=== PATIENT | female | born 1950 | race Caucasian/White ===

== ENCOUNTER 2021-09-26 01:34 | Day surgery (SDC) | payer MEDICARE, SELFPAY ==
[2021-09-06 15:59] VITALS: BMI 42.9
[2021-09-26 09:53] VITALS: BP 134/95; PULSE 97; RESP 20; TEMP 36.3; O2SAT 98; BMI 41.5
[2021-09-26] MEDS: LACTATED RINGERS 1,000 ML 150 ML IV CONT (10:02)
--- NOTE | 2021-09-26 10:50 | PM.HPGS ---
History of Present Illness History of Present Illness Consent: Risks, benefits, and alternatives have been discussed and questions answered. Patient agrees to proceed with procedure. Chief complaint: ulcerative colitis Narrative: Windy Kan is a 70 year old female who ?6 years ago was diagnosed with inflammatory bowel disease involving the rectum and sigmoid colon.? Biopsies were it suggestive of an indeterminate colitis.? Since that time she has been on oral mesalamine and also had been prescribed mesalamine enemas by Dr. Montalvo a few years ago.? she was 1st diagnosed with colitis in 2016 when she had presented with rectal bleeding. she never had diarrhea and has never had significant pain.? a few months ago, after a COVID vaccine, she had a flare up. At that point we increased her mesalamine to 4.8 g per day. Review of Systems Review of Systems: All systems reviewed & are unremarkable except as noted in HPI and below PMFSH Past Medical History Medical History Anxiety disorder, unspecified Arthritis Autoimmune disease, not elsewhere classified BMI greater than 40 Breast nodule Cataract GERD (gastroesophageal reflux disease) Heart palpitations History of encephalitis Irritable bowel syndrome Knee osteoarthritis Mixed hyperlipidemia Mixed hyperlipidemia Seronegative rheumatoid arthritis Tachycardia Thyroid disorder Tonsillectomy planned Ulcerative colitis Surgical History Surgical History History of cataract surgery History of tonsillectomy and adenoidectomy Family History Family History Father Hypertension Heart disease Mother Hypertension Heart disease Social History Social History Smoking status: Never smoker Second hand tobacco smoke exposure: No Alcohol intake: never Substance use: never Substance use type: does not use Living arrangements: alone Spiritual care concerns: No Meds Home Medications and Allergies Home Medications Medication Instructions Recorded Confirmed Type esomeprazole magnesium 40 mg 40 mg PO DAILY 05/08/21 09/25/21 History capsule,delayed release mesalamine 1.2 gram tablet,delayed 4.8 g PO DAILY #360 tabs 06/26/21 09/25/21 Rx release mdpzfitskg-plwwxvsqwuoqb-adjrskzu 1 cap PO Q6H PRN Headache 09/13/21 09/25/21 History 50 mg-325 mg-40 mg capsule cholecalciferol (vitamin D3) 1,250 50,000 unit PO WEEKLY #12 tabs 09/13/21 09/25/21 Rx mcg (50,000 unit) tablet fexofenadine 180 mg tablet 180 mg PO DAILY 09/13/21 09/25/21 History hydrocodone 10 mg-acetaminophen 1 tablet PO Q12H pain #60 tabs 09/13/21 09/25/21 Rx 325 mg tablet lorazepam 1 mg tablet 1 mg PO BID PRN Anxiety #40 tabs 09/13/21 09/25/21 Rx metoprolol tartrate 25 mg tablet See Rx Instructions PO .COMPLEX 09/13/21 09/25/21 Rx #90 tabs multivitamin with minerals-folic 1 tablet PO DAILY 09/13/21 09/25/21 History acid 120 mcg chewable tablet (Centrum Adult 50 Plus Fresh-Fruity) prednisone 10 mg tablet 10 mg PO .QOD #45 tabs 09/13/21 09/25/21 Rx rosuvastatin 5 mg tablet 5 mg PO DAILY #90 tabs 09/13/21 09/25/21 Rx triamterene 37.5 1 cap PO DAILY PRN swelling #30 09/13/21 09/25/21 Rx mg-hydrochlorothiazide 25 mg caps capsule levothyroxine 50 mcg tablet 50 mcg PO DAILY #90 tabs 09/20/21 09/25/21 Rx Allergies Allergy/AdvReac Type Severity Reaction Status Date / Time ciprofloxacin Allergy Intermediate REDNESS Verified 09/26/21 09:51 Contrast Media Allergy Severe HIVES, Uncoded 09/26/21 09:51 ITCHING Vital Signs Vital Signs - 24 hr 09/26/21 09:53 Temperature 36.3 C L Pulse Rate 97 Respiratory Rate 20 Blood Pressure 134/95 H Pulse Oximetry 98 Oxygen Delivery Room Air Exam Resp: Auscultation: clear to auscultation bilaterally
--- NOTE | 2021-09-26 11:37 | WPDANESEPPF ---
Anes - Initial Pre Proc Eval Procedure: Operation Date: 09/26/21 11:00 Proposed Procedures p Colonoscopy - Kelton Disla MD Date/Time: 09/26/21 11:37 Surgeon: Kelton Disla MD Pre Op Diagnosis: ulcerative colitis Patient Data Age: 70 Gender: F Height: 1.75 m Weight: 127.8 kg Last Vital Signs Temp 97.3 F L 09/26/21 09:53 Pulse 97 09/26/21 09:53 Resp 20 09/26/21 09:53 BP 134/95 H 09/26/21 09:53 Pulse Ox 98 09/26/21 09:53 O2 Del Method Room Air 09/26/21 09:53 Allergies Allergy/AdvReac Type Severity Reaction Status Date / Time ciprofloxacin Allergy Intermediate REDNESS Verified 09/26/21 09:51 Contrast Media Allergy Severe HIVES, Uncoded 09/26/21 09:51 ITCHING Home Medications Medication Instructions Recorded Confirmed Type esomeprazole magnesium 40 mg 40 mg PO DAILY 05/08/21 09/25/21 History capsule,delayed release mesalamine 1.2 gram tablet,delayed 4.8 g PO DAILY #360 tabs 06/26/21 09/25/21 Rx release puexhfpqun-zdqhxnfeisghq-yrmupcsi 1 cap PO Q6H PRN Headache 09/13/21 09/25/21 History 50 mg-325 mg-40 mg capsule cholecalciferol (vitamin D3) 1,250 50,000 unit PO WEEKLY #12 tabs 09/13/21 09/25/21 Rx mcg (50,000 unit) tablet fexofenadine 180 mg tablet 180 mg PO DAILY 09/13/21 09/25/21 History hydrocodone 10 mg-acetaminophen 1 tablet PO Q12H pain #60 tabs 09/13/21 09/25/21 Rx 325 mg tablet lorazepam 1 mg tablet 1 mg PO BID PRN Anxiety #40 tabs 09/13/21 09/25/21 Rx metoprolol tartrate 25 mg tablet See Rx Instructions PO .COMPLEX 09/13/21 09/25/21 Rx #90 tabs multivitamin with minerals-folic 1 tablet PO DAILY 09/13/21 09/25/21 History acid 120 mcg chewable tablet (Centrum Adult 50 Plus Fresh-Fruity) prednisone 10 mg tablet 10 mg PO .QOD #45 tabs 09/13/21 09/25/21 Rx rosuvastatin 5 mg tablet 5 mg PO DAILY #90 tabs 09/13/21 09/25/21 Rx triamterene 37.5 1 cap PO DAILY PRN swelling #30 09/13/21 09/25/21 Rx mg-hydrochlorothiazide 25 mg caps capsule levothyroxine 50 mcg tablet 50 mcg PO DAILY #90 tabs 09/20/21 09/25/21 Rx Patient hx anesthesia problems: none Family hx anesthesia problems: none Results Review: All pre-operative results and documents have been reviewed as part of the pre-operative evaluation. [facility] Past Medical History Medical History Anxiety disorder, unspecified Arthritis Autoimmune disease, not elsewhere classified BMI greater than 40 Breast nodule Cataract GERD (gastroesophageal reflux disease) Heart palpitations History of encephalitis Irritable bowel syndrome Knee osteoarthritis Mixed hyperlipidemia Mixed hyperlipidemia Seronegative rheumatoid arthritis Tachycardia Thyroid disorder Tonsillectomy planned Ulcerative colitis Surgical History Surgical History History of cataract surgery History of tonsillectomy and adenoidectomy Family History Family History Father Hypertension Heart disease Mother Hypertension Heart disease Social History Social History Smoking status: Never smoker Second hand tobacco smoke exposure: No Alcohol intake: never Substance use: never Substance use type: does not use Living arrangements: alone Spiritual care concerns: No Anes - Eval Final PreProcedure Day of Procedure 09/26/21 11:37 Patient weight: morbidly obese Heart: regular rate and rhythm Lungs: clear to auscultation Airway: Mallampati scale class II Neurological: alert and oriented Last oral intake: >/= 8 hours ASA classification: III Emergent: no Anesthetic plan: proceed Anesthesia type and monitoring: general GIVS and standard monitoring Results Review: All pre-operative results and documents have been reviewed as part of the pre-operative evaluation. Informed Consen
[2021-09-26 11:54] VITALS: BP 125/54; PULSE 71; RESP 20; O2SAT 97
[2021-09-26 12:04] VITALS: BP 125/66; PULSE 66; RESP 19; O2SAT 97
[2021-09-26 12:14] VITALS: BP 121/65; PULSE 69; RESP 17; O2SAT 100
== END 2021-09-26 12:18 | disposition home or self-care (01) ==
PROVIDERS: PCP Family Medicine; Visit Provider Internal Medicine Gastroenterology
PROC: 0DJD8ZZ Inspection of Lower Intestinal Tract, Via Natural or Artificial Opening Endoscopic (ICD-10-PCS; CPT 45378; principal; 2021-09-26 11:00)
DX: Z09 Encounter for follow-up examination after completed treatment for conditions other than malignant neoplasm (principal); K57.30 Diverticulosis of large intestine without perforation or abscess without bleeding; Z87.19 Personal history of other diseases of the digestive system; E78.2 Mixed hyperlipidemia; M35.9 Systemic involvement of connective tissue, unspecified; K21.9 Gastro-esophageal reflux disease without esophagitis; K58.9 Irritable bowel syndrome, unspecified; M06.00 Rheumatoid arthritis without rheumatoid factor, unspecified site; E07.9 Disorder of thyroid, unspecified; F41.9 Anxiety disorder, unspecified; E66.01 Morbid (severe) obesity due to excess calories; Z68.41 Body mass index [BMI] 40.0-44.9, adult; Z79.891 Long term (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 of opiate analgesic
CPT/HCPCS: 45380; 88305; J2704; J7120

== ENCOUNTER 2022-10-30 12:58 | Emergency (ER) | payer MEDICARE, SELFPAY ==
[2022-10-30] VITALS (11 sets, daily range): BP systolic 137–159; BP diastolic 74–94; PULSE 81–101; RESP 13–22; TEMP 36.2; O2SAT 95–100
--- NOTE | ~2022-10-30 | NM_ITS ---
NM lung vent and perfusion INDICATION: Chest pain and shortness of breath TECHNIQUE: The patient inhaled aerosolized 9.8 mCi xenon-133. Following ventilation scan, 5.5 mCi Tc 99m MAA was injected intravenously for perfusion images. Multiple images were then acquired. COMPARISON: Chest x-ray dated 10/30/2022 FINDINGS: The comparison chest radiograph demonstrates left basilar atelectasis. No focal pneumonia o r pleural effusion. The perfusion scan is normal. The aerosol in images show uniform deposition thro ughout the lungs. IMPRESSION: 1: Normal ventilation and perfusion images. Reviewed, dictated and finalized at location B.
--- NOTE | ~2022-10-30 | XR_ITS ---
XR chest 2V 10/30/2022 13:30 Indication: Chest pain and shortness of breath Procedure: 2 view chest Comparison: 06/10/2009 Findings: Heart size normal. Left basilar atelectasis. No focal pneumonia, edema, pleural effusion or pneumothorax. No acute osseous abnormality. Impression: 1: Left basilar atelectasis. Reviewed, dictated and finalized at location B. Impression: 1: Left basilar atelectasis.
--- NOTE | 2022-10-30 12:59 | ECG_ITS ---
Measurements Intervals [place] Rate: 92 P: 67 FL: 166 QRS: -1 QRSD: 83 T: 33 QT: 328 QTc: 408 Interpretive Statements SINUS RHYTHM DELAYED PRECORDIAL R/S TRANSITION BASELINE ARTIFACT- I, III, AVR, AVL, V1 BORDERLINE ECG NO PREVIOUS ECG AVAILABLE FOR COMPARISON Electronically Signed On 10-30-2022 13:14:55 CDT by Steven Caro D.O.
[2022-10-30 13:31] LABS: Basophils Absolute Auto 0.1 K/mm3 (0.0-0.1); Basophils Percent Auto 0.7 % (0.2-1.2); Eosinophils Absolute Auto 0.3 K/mm3 (0-0.3); Eosinophils Percent Auto 2.4 % (0-4.4); Hematocrit 43.9 % (37.0-47.0); Immature Granulocyte Absolute 0.03 K/mm3 (0.00-0.031); Immature Granulocyte Percent A 0.3 % (0-0.5); Lymphocytes Absolute Auto 2.49 K/mm3 (0.9-3.2); Mean Corpuscular HGB Conc 31.9 g/dl (32-36); Mean Corpuscular Hemoglobin 28.6 pg (26-34); Mean Corpuscular Volume 89.6 fl (80-100); Mean Platelet Volume 9.4 fl (7.4-10.4); Monocytes Absolute Auto 1.4 K/mm3 (0.1-0.6); Monocytes Percent Auto 12.7 % (2.6-8.5); Neutrophils Absolute Auto 6.6 K/mm3 (1.3-6.7); Neutrophils Percent Auto 60.9 % (45.5-73.1); Platelet Count Result 460 k/mm3 (150-375); White Blood Count 10.8 K/mm3 (4.5-10.0)
[2022-10-30 13:43] LABS: Prothrombin Time 13.5 Seconds (11.1-14.7)
[2022-10-30 13:44] LABS: Alanine Aminotransferase 22 U/L (6-35); Albumin Level 4.4 g/dL (3.5-5.1); Alkaline Phosphatase 71 U/L (38-126); Anion Gap 6 mmol/L (8-16); Aspartate Amino Transferase 30 U/L (14-36); Bilirubin,Total 0.6 mg/dL (0.2-1.3); Blood Urea Nitrogen 15 mg/dL (7-17); Carbon Dioxide 31 mmol/L (22-30); Chloride 102 mmol/L (98-107); Estimated CRCL calculation 88 ml/min; Estimated Glomerular Filt Rate > 60; Glucose 112 mg/dL (65-110); Lipase 391 U/L (23-300); Partial Thromboplastin Time 29.9 SECONDS (22.3-36.8); Potassium 5.2 mmol/L (3.4-5.0); Sodium 139 mmol/L (137-145)
[2022-10-30 13:56] LABS: Troponin I < 0.012 ng/mL (0.000-0.034)
--- NOTE | 2022-10-30 15:28 | ED.CHESTPAIN ---
HPI - Chest Pain General Chief Complaint: Chest Pain Stated Complaint: Chest Pain Time Seen by Provider: 10/30/22 14:47 History of Present Illness HPI narrative: 71-year-old female history of hypertension, atrial tachycardia, and hypothyroidism presents to the emergency room for evaluation of chest pain. States pain began yesterday and is worse with respirations. Patient describes the pain as a tearing sensation that radiates up into her neck and through to her back. Denies any shortness of breath. Denies dizziness or lightheadedness. No nausea or vomiting. No syncopal or presyncopal episodes. Patient does report palpitations, which are more prevalent at night and resolved when she wakes up in the morning. Related Data Home Medications Medication Instructions Recorded Confirmed esomeprazole magnesium 40 mg 40 mg PO DAILY 05/08/21 10/22/22 capsule,delayed release ctvafaaiyt-jlybuoduhfwab-caunbqzh 1 cap PO Q6H PRN Headache 09/13/21 10/22/22 50 mg-325 mg-40 mg capsule multivitamin (One Daily 1 tablet PO DAILY 10/22/22 10/22/22 Multivitamin tablet) Allergies Allergy/AdvReac Type Severity Reaction Status Date / Time ciprofloxacin Allergy Intermediate REDNESS Verified 10/22/22 14:23 Iodinated Contrast Media AdvReac Intermediate Shakiness Verified 10/22/22 14:23 Review of Systems Review of Systems: CONSTITUTIONAL: Denies fever, chills, or sweats. EYES: Denies visual changes, redness, or discharge. ENT: Denies rhinorrhea, congestion, sore throat, or otalgia. CARDIOVASCULAR: Denies chest pain, palpitations, or edema. RESPIRATORY: Denies cough or dyspnea. GASTROINTESTINAL: Denies abdominal pain, nausea, vomiting, or diarrhea. GENITOURINARY: Denies dysuria or hematuria. SKIN: Denies rash or itching. MUSCULOSKELETAL: Denies back pain, joint pain, or myalgia. NEUROLOGIC: Denies headache, numbness, dizziness, or weakness. PSYCHIATRIC: Denies anxiety or depression. [facility] Past Medical History Medical History Anxiety disorder, unspecified Arthritis Autoimmune disease, not elsewhere classified BMI greater than 40 Breast nodule Cardiac arrhythmia Cataract Chronic headache Chronic pain Coccyx pain Dyspepsia GERD (gastroesophageal reflux disease) Heart palpitations History of encephalitis Hypothyroidism (acquired) Irritable bowel syndrome Knee osteoarthritis Mixed hyperlipidemia Mixed hyperlipidemia Rhinorrhea Seronegative rheumatoid arthritis Tachycardia Thyroid disorder Tonsillectomy planned Ulcerative colitis Surgical History Surgical History History of cataract surgery History of tonsillectomy and adenoidectomy Family History Family History Father Hypertension Heart disease Acute myocardial infarction Mother Hypertension Heart disease Sibling Heart disease Social History Social History Smoking status: Never smoker Second hand tobacco smoke exposure: No Alcohol intake: never Substance use: never Substance use type: does not use Lack of Transportation: No Lack of Food: Never True Current Housing: I Have Housing Concerned About Future Housing: No Difficulty Paying Gas/Electric Bills: No Difficulty Paying for Meds: No Currently Unemployed: No Education: Master's Degree or Higher Difficulty w/ Childcare or Family Care: No Living arrangements: alone 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 HEAD: Normocephalic, atraumatic. EYES: Conjunctivae normal, PERRLA and EOMI. NECK: S
--- NOTE | 2022-10-30 15:36 | PC.NURSE ---
pt taken for NM scan at this time
--- NOTE | 2022-10-30 15:58 | PC.NURSE ---
pt returned to room 5 at this time
[2022-10-30 16:50] LABS: Troponin I < 0.012 ng/mL (0.000-0.034)
== END 2022-10-30 17:28 | disposition home or self-care (01) ==
PROVIDERS: Emergency Medicine; Emergency Provider Nurse Practitioner Family; PCP Family Medicine
DX: R07.89 Other chest pain (principal); R00.2 Palpitations; I10 Essential (primary) hypertension; E03.9 Hypothyroidism, unspecified; E78.2 Mixed hyperlipidemia; K51.90 Ulcerative colitis, unspecified, without complications; K21.9 Gastro-esophageal reflux disease without esophagitis; M35.9 Systemic involvement of connective tissue, unspecified; M17.9 Osteoarthritis of knee, unspecified; M06.0A Rheumatoid arthritis without rheumatoid factor, other specified site; F41.9 Anxiety disorder, unspecified; Z98.49 Cataract extraction status, unspecified eye
CPT/HCPCS: 36415; 71046; 78582; 80053; 83690; 84484; 85025; 85610; 85730; 93005; 99284; A9540; A9558

== ENCOUNTER 2022-11-07 06:57 | Inpatient (IN) | payer MEDICARE, SELFPAY ==
[2022-11-07] VITALS (27 sets, daily range): BP systolic 110–163; BP diastolic 79–126; PULSE 115–134; RESP 16–39; TEMP 36.5–38.2; O2SAT 90–99; BMI 43.2
--- NOTE | ~2022-11-07 | US_ITS ---
EXAMINATION: US abdomen limited DATE: 11/08/2022 14:53 INDICATION: Right upper quadrant pain TECHNIQUE: Multiple grayscale and Doppler ultrasound images of the abdomen were obtained. COMPARISON: None available FINDINGS: The head and body of the pancreas are normal. The pancreatic tail is obscured by bowel gas. The liver is normal with normal echogenicity and echotexture. No surface nodularity. Normal hepatope chacorta flow in the main portal vein. The gallbladder is normal with no abnormal wall thickening, pericho lecystic fluid or stones. The normal common bile duct measures 4 mm. There was no sonographic Lozano sign. Right pleural fluid is noted. IMPRESSION: 1. Normal sonographic study of the gallbladder. Reviewed, dictated and finalized at location B.
--- NOTE | ~2022-11-07 | XR_ITS ---
EXAMINATION: XR chest 1V portable DATE: 11/12/2022 13:09 INDICATION: Central line placement. TECHNIQUE: A single frontal view of the chest was obtained. COMPARISON: Chest single view 11/10/2022, CT abdomen and pelvis 11/07/2022 FINDINGS: There are small right and moderate-sized left pleural effusions. There are airspace opaciti es at left lung base. No pneumothorax. There is enlargement of the cardiac silhouette. A right upper extremity peripherally inserted central venous catheter (PICC) is seen with tip in the superior vena cava. IMPRESSION: 1. PICC tip in the superior vena cava. 2. Stable small right and moderate-sized left pleural effusions. 3. Stable airspace opacities at left lung base, consistent with atelectasis versus pneumonia. 4. Enlargement of the cardiac silhouette, which may be secondary to pericardial effusion as seen on t he prior CT. Reviewed, dictated and finalized at location A. IMPRESSION: 1. PICC tip in the superior vena cava. 2. Stable small right and moderate-sized left pleural effusions. 3. Stable airspace opacities at left lung base, consistent with atelectasis maura maira pneumonia. 4. Enlargement of the cardiac silhouette, which may be secondary to pericardial effusion as seen on the prior CT.
--- NOTE | ~2022-11-07 | CT_ITS ---
Non-contrast CT scan of the Abdomen and Pelvis Clinical indication: Abdominal pain, hematuria Technique: 2.5 mm axial scans were obtained through the abdomen and pelvis without intravenous or or al contrast. Dose reduction technique was used on this scan by utilizing automated exposure control a nd iterative reconstruction technique. The dose-length product (DLP) was 1420.52 mGy-cm. Findings: Images through the lung bases reveal moderate pericardial effusion, and small bilateral pl eural effusions. There is bibasilar atelectatic change or scarring. There is no evidence of renal or ureteral calculi. The kidneys and the ureters are nondilated. The liver, spleen, pancreas, and adrenals appear normal. There is probable gallbladder wall thickenin g, with gallbladder sludge present. There are atherosclerotic calcifications of the aorta. There is no evidence of bowel obstruction. Sigmoid diverticulosis is present. Images through the pelvis were performed. Small amount of pelvic ascites present. Urinary bladder col lapsed. No adnexal mass evident. Impression: Mild gallbladder wall thickening and suspected gallbladder sludge. Correlate for acute cholecystitis. Consider HIDA scan as indicated. Moderate pericardial effusion. Small bilateral pleural effusions with bibasilar scarring or atelectasis. Small amount of pelvic ascites, nonspecific. Reviewed, dictated and finalized at location . Impression: Mild gallbladder wall thickening and suspected gallbladder sludge. Correlate fo r acute cholecystitis. Consider HIDA scan as indicated. Moderate pericardial effusion. Small bilateral pleural effusions with bibasilar scarring or atelectasis. Small amount of pelvic ascites, nonspecific.
--- NOTE | ~2022-11-07 | XR_ITS ---
Clinical Indication: Chest pain AP and lateral views of the chest: Comparison: 10/30/2022 Findings: Small left pleural effusion and probable minimal right pleural effusion are present. Probab le minimal bibasilar atelectatic change.. Cardiomediastinal silhouette is stable. Bones and soft tis sues are unremarkable. Impression: Small left pleural effusion and minimal right pleural effusion, probable minimal bibasilar atelectasi s. Reviewed, dictated and finalized at location M. Impression: Small left pleural effusion and minimal right pleural effusion, probable minima l bibasilar atelectasis.
--- NOTE | ~2022-11-07 | XR_ITS ---
XR chest 1V portable 11/09/2022 09:28 Indication: Shortness of breath Procedure: AP portable chest Comparison: 11/07/2022 Findings: Cardiomegaly. Mild interstitial edema. Small pleural effusions. No pneumothorax. No acute o sseous abnormality. Mild dextrocurvature of the thoracic spine. Impression: 1: Cardiomegaly with mild interstitial edema. 2: Small pleural effusions. Reviewed, dictated and finalized at location A. Impression: 1: Cardiomegaly with mild interstitial edema. 2: Small pleural effusions.
--- NOTE | ~2022-11-07 | XR_ITS ---
XR chest 1V portable 11/10/2022 10:58 Indication: Shortness of breath. Cough. Weakness. Procedure: AP portable chest Comparison: Comparison to multiple prior studies sequentially, with oldest reviewed study dated 06/10. Findings: Cardiomegaly. Mild interstitial edema. Small left pleural effusion. No pneumothorax. Impression: 1: Cardiomegaly with mild interstitial edema. 2: Small left pleural effusion. Reviewed, dictated and finalized at location A. Impression: 1: Cardiomegaly with mild interstitial edema. 2: Small left pleural effusion.
--- NOTE | ~2022-11-07 | NM_ITS ---
EXAMINATION: NM hepatobiliary wo pharm DATE: 11/08/2022 11:44 CDT INDICATION: Right upper quadrant pain COMPARISON: None. TECHNIQUE: 5.4 mCi Tc-99m mebrofenin (Choletec) was administered intravenously. Scintigraphic images of the abdomen were obtained for one hour. At the 1 hour time point, the patient drank 8 oz Ensure, and imaging was continued for 60 minutes. Gallbladder ejection fraction was calculated by the technol ogist. FINDINGS: There is normal clearance of radiotracer from the blood pool. There is homogeneous tracer u ptake by the liver. Activity progresses to the bowel and gallbladder. The gallbladder ejection fract ion is 34%. Note that with this technique, normal GBEF >= 33%. IMPRESSION: 1. Normal hepatobiliary scan. Reviewed, dictated and finalized at location A.
--- NOTE | ~2022-11-07 | XR_ITS ---
EXAMINATION: XR chest PICC line Exam Date/Time: 11/10/2022 19:30 CDT HISTORY: picc insertion Comparison: Same date at 10:24 AM. RESULT: Lines, tubes, and devices: New right upper extremity PICC terminating in the SVC. Lungs and pleura: Unchanged interstitial edema, left basilar airspace disease, and small left pleura l effusion. Cardiomediastinal silhouette: Stable. Other: No acute osseous or upper abdominal finding. IMPRESSION: New right upper extremity PICC, in good position. Reviewed, dictated and finalized at location K.
--- NOTE | 2022-11-07 07:14 | ECG_ITS ---
Measurements Intervals [place] Rate: 124 P: 57 NC: 147 QRS: 13 QRSD: 75 T: 78 QT: 314 QTc: 451 Interpretive Statements SINUS TACHYCARDIA ST ELEVATION IN DIFFUSE LEADS- CONSIDER PERICARDITIS, EARLY REPOLARIZATION ABNORMALITY OR ACUTE INFARCT ABNORMAL ECG COMPARED TO ECG 10/30/2022 13:11:27 SINUS TACHYCARDIA NOW PRESENT Electronically Signed On 11-07-2022 8:24:12 CDT by Steven Caro D.O.
[2022-11-07 07:39] LABS: Basophils Absolute Auto 0.1 K/mm3 (0.0-0.1); Basophils Percent Auto 0.5 % (0.2-1.2); Hematocrit 38.7 % (37.0-47.0); Hemoglobin 12.7 g/dL (12.0-15.0); Immature Granulocyte Absolute 0.06 K/mm3 (0.00-0.031); Immature Granulocyte Percent A 0.4 % (0-0.5); Lymphocytes Absolute Auto 1.59 K/mm3 (0.9-3.2); Lymphocytes Percent Auto 9.6 % (18.3-44.2); Mean Corpuscular HGB Conc 32.8 g/dl (32-36); Mean Corpuscular Hemoglobin 28.6 pg (26-34); Mean Corpuscular Volume 87.2 fl (80-100); Monocytes Absolute Auto 2.2 K/mm3 (0.1-0.6); Monocytes Percent Auto 13.2 % (2.6-8.5); Neutrophils Absolute Auto 12.7 K/mm3 (1.3-6.7); Neutrophils Percent Auto 76.3 % (45.5-73.1); Platelet Count Result 611 k/mm3 (150-375); Red Blood Count 4.44 M/mm3 (4.2-5.4); White Blood Count 16.6 K/mm3 (4.5-10.0)
[2022-11-07 07:51] LABS: Alanine Aminotransferase 44 U/L (6-35); Alkaline Phosphatase 76 U/L (38-126); Anion Gap 10 mmol/L (8-16); Aspartate Amino Transferase 43 U/L (14-36); Bilirubin,Total 1.4 mg/dL (0.2-1.3); Blood Urea Nitrogen 23 mg/dL (7-17); Carbon Dioxide 24 mmol/L (22-30); Chloride 101 mmol/L (98-107); Estimated CRCL calculation 70 ml/min; Estimated Glomerular Filt Rate > 60; Glucose 177 mg/dL (65-110); Potassium 4.7 mmol/L (3.4-5.0); Sodium 135 mmol/L (137-145)
[2022-11-07 10:47] LABS: Bacteria Urine None Seen /hpf; Hyaline Casts Urine Present /lpf; Mucus Urine Present /lpf; Non Pathogenic Casts >20; RBC Urine 21-50 /hpf (0-2); Squamous Epithelial Cell Urine Few /hpf (Few); WBC Urine 0-5 /hpf
[2022-11-07 10:49] LABS: Appearance Urine Cloudy (Clear); Bilirubin Urine 2+ (Negative); Blood Urine Negative (Negative); Color Urine Orange (Yellow); Glucose Urine UA Negative (Negative); Ketones Urine Negative (Negative); Leukocyte Esterase Ur 1+ LEU/UL (Negative); Protein Urine 1+ mg/dL (Negative)
[2022-11-07 10:54] LABS: Specific Grav Ur 1.046 (1.001-1.035)
[2022-11-07 10:59] LABS: Add Urine Microscopic? YES
[2022-11-07] MEDS: SODIUM CHLORIDE 0.9% IV 1,000 ML 999 ML IV CONT (12:52)
[2022-11-07] MEDS: ONDANSETRON INJ 4 MG/2 ML VIAL IV PUSH (13:03)
--- NOTE | 2022-11-07 13:25 | ED.GENADULT ---
HPI - General Adult General Chief complaint: Unspecified Stated complaint: Weak, dizzy, burn when urinates, N/V Time Seen by Provider: 11/07/22 10:07 History of Present Illness HPI narrative: Patient is a 71-year-old female who presents ER with multiple complaints. She was seen here last week for concerns of chest discomfort. She had a pulmonary embolism ruled out as well as cardiac issues. Since being home she has had persistent nausea and has been unable to eat and drink. She is continue to have daily fevers. Patient does have right upper quadrant abdominal tenderness. This will occasionally go into her back. No diarrhea. Patient also has concerns for UTI as she has been having some dysuria and what she thinks is blood in her urine because her urine has been discolored Related Data Home Medications Medication Instructions Recorded Confirmed multivitamin (One Daily 1 tablet PO DAILY 10/22/22 11/07/22 Multivitamin tablet) metoprolol tartrate 25 mg tablet 12.5 mg PO DAILY 11/07/22 11/07/22 metoprolol tartrate 25 mg tablet 25 mg PO HS 11/07/22 11/07/22 Allergies Allergy/AdvReac Type Severity Reaction Status Date / Time ciprofloxacin Allergy Intermediate REDNESS Verified 11/07/22 14:53 Iodinated Contrast Media AdvReac Intermediate Shakiness Verified 11/07/22 14:53 Review of Systems Review of Systems: All systems reviewed & are unremarkable except as noted in HPI and below Constitutional: Constitutional: Reports chills, Reports fatigue and Reports fever(s) ENT: Reports system reviewed and no additional complaints, except as documented Cardiovascular: Cardiovascular: Reports no additional cardiovascular complaints Respiratory: Respiratory: Reports no additional respiratory complaints Gastrointestinal: Gastrointestinal: Reports abdominal pain, Reports nausea and Reports vomiting Genitourinary: Genitourinary: Reports hematuria, Reports nocturia and Reports dysuria [facility] Past Medical History Medical History Anxiety disorder, unspecified Arthritis Autoimmune disease, not elsewhere classified BMI greater than 40 Breast nodule Cardiac arrhythmia Cataract Chronic headache Chronic pain Coccyx pain Dyspepsia Elevated lipase Elevated white blood cell count GERD (gastroesophageal reflux disease) Heart palpitations History of encephalitis Hypothyroidism (acquired) Irritable bowel syndrome Knee osteoarthritis Mixed hyperlipidemia Mixed hyperlipidemia Rhinorrhea Seronegative rheumatoid arthritis Tachycardia Thyroid disorder Tonsillectomy planned Ulcerative colitis Surgical History Surgical History History of cataract surgery History of tonsillectomy and adenoidectomy Family History Family History Father Hypertension Heart disease Acute myocardial infarction Mother Hypertension Heart disease Sibling Heart disease Acute myocardial infarction Social History Social History Smoking status: Never smoker Second hand tobacco smoke exposure: No Alcohol intake: never Substance use: never Substance use type: does not use Lack of Transportation: No Lack of Food: Never True Current Housing: I Have Housing Concerned About Future Housing: No Difficulty Paying Gas/Electric Bills: No Difficulty Paying for Meds: No Currently Unemployed: No Education: Master's Degree or Higher Difficulty w/ Childcare or Family Care: No Living arrangements: alone Occupation/Education: retired 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 HEAD: Normocephalic, atrauma
[2022-11-07] MEDS: PIPERACILLN/TAZ 3.375GM/NS50ML 3.375 GM/50 ML BAG IVPB ×2 (13:52→17:41)
[2022-11-07 14:27] LABS: Lactic Acid Reflex 2.9 mmol/L (0.7-2.0)
--- NOTE | 2022-11-07 14:52 | ADMGEN ---
This patient, Windy Kan, was admitted to [facility] Surg Room 313-01. Patient/family oriented to hospital policies and general routines including ID bracelet, bed and alarms, visiting hours, pain management, procedures, bathroom and other care routines, personal items, smoking policy, room service/diet, and visiting hours. Information on how to activate the Rapid Response Team has been discussed. Patient/Family are encouraged to report perceived risks to care and to ask questions if they do not understand what they are told or what they should do.
--- NOTE | 2022-11-07 15:27 | PM.CNGS ---
Assessment and Plan Assessment and plan (1) Cholecystitis: Code(s): K81.9 - Cholecystitis, unspecified Status: Acute Assessment and Plan: CT abdomen and pelvis suggests mild gallbladder wall thickening and gallbladder sludge, which could be related to cholecystitis. She does have some tenderness in the RUQ on exam, although her presentation and symptoms are atypical for what you would expect with acute cholecystitis. We would recommend to continue IV antibiotics and we will proceed with a HIDA scan to further evaluate the gallbladder for acute cholecystitis. Plan depending on HIDA results. (2) Sepsis: Code(s): A41.9 - Sepsis, unspecified organism Status: Acute Assessment and Plan: Criteria met on admission with tachycardia, leukocytosis, tachypnea, and fever. Continue broad-spectrum IV antibiotics and IV fluids. Monitor labs. (3) Tachycardia: Code(s): R00.0 - Tachycardia, unspecified Status: Acute Assessment and Plan: Patient reports a lifelong history of intermittent tachycardia since childhood. In review of her records, she has not been tachycardic in any of our charting up until arriving to the ER today. Continue to monitor, see plan above. (4) Autoimmune disease, not elsewhere classified: Code(s): M35.9 - Systemic involvement of connective tissue, unspecified Status: Acute Assessment and Plan: Takes prednisone at times through her PCP. Reports having autoimmune disease after having meningitis in 2015. (5) Ulcerative colitis: Qualifiers: Ulcerative colitis location: unspecified ulcerative colitis location Digestive disease complication type: without complication Qualified Code(s): K51.90 - Ulcerative colitis, unspecified, without complications Code(s): K51.90 - Ulcerative colitis, unspecified, without complications Status: Acute Assessment and Plan: History of inflammatory bowel disease treated previously with mesalamine. Patient denies being on any current medications. She had a colonoscopy in September of 2021 that only had findings of diverticulosis. After her colonoscopy, she was instructed to stop taking the mesalamine. (6) Elevated LFTs: Code(s): R79.89 - Other specified abnormal findings of blood chemistry Status: Acute Assessment and Plan: Mildly elevated AST, ALT, and alk phos. Lipase was 391 last week in the ER, but is normal on this admission. Repeat labs again tomorrow, see plan above. Plan I have discussed the patient's case and plan of care with Dr. Gómez. Thank you for allowing us to see the patient in consultation and we will continue to follow along with you. History of Present Illness Consult details Consult date: 11/07/22 Reason for consult: other (Possible acute cholecystitis) Requesting physician: Lawson Arriaga MD Narrative: This is a 71-year-old woman who we have been asked to see in consultation for possible acute cholecystitis. She presented to the ER 8 days ago for evaluation a cough and chest pain. At that time, the patient reports her main complaint was having a cough. She kept having the sensation of an irregular, rapid heartbeat, which would subsequently make her cough. She also developed some midsternal chest pain. She then came into the ER for evaluation. At that time [place] [address]. She had a negative troponin x2. LFTs were normal, and she had a lipase of 391. She had a chest x-ray that showed left basilar atelectasis. She also had a nuclear medicine V/Q pulmonary perfusion scan to evaluate for a PE since she has a contrast allergy, which was negative. It was recommended that she wear a Holter monitor and she was referred to Cardiology, which she has not seen yet. She was also started on Nexium. The patient reports that after having the V/Q scan, she has since felt generalized malaise and started having a fever and chills. She reports leylai
[2022-11-07] MEDS: SODIUM CHLORIDE 0.9% IV 1,000 ML 125 ML IV CONT (15:50)
[2022-11-07 17:14] LABS: Reflex Lactic Acid Yes or No Add Lactic
[2022-11-07 18:35] LABS: Lactic Acid 2.6 mmol/L (0.7-2.0)
--- NOTE | 2022-11-07 19:52 | PM.IMHP ---
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 Patient reports persistent nausea without vomiting, poor p.o. intake, weakness, urinary symptoms, dizziness, and fever. she was recently seen in the emergency department on 10/30. Per patient she was seen then for a cough that was precipitated by palpitations. per chart review, patient was complaining of chest pain with radiation into her back. V/Q scan was negative for a PE, trops x2 was negative, and she was discharged home with recommendation to wear a Holter monitor and see Cardiology for further workup. however, patient reports since she had received the V/Q scan she began feeling poorly. Now endorsing intermittent fevers (101F), dysuria, frequency, and hematuria. Urinary symptoms are accompanied by epigastric pain that is non-radiating. She took TYL at home for pain/fever. She denies diarrhea or bowel changes. Review of Systems Review of Systems: All systems reviewed & are unremarkable except as noted in HPI and below PMFSH Past Medical History Medical History (Updated 11/07/22 @ 20:13 by Diamond Bourne APRN) Anxiety disorder, unspecified Arthritis Autoimmune disease, not elsewhere classified BMI greater than 40 Breast nodule Cardiac arrhythmia Cataract Chronic headache Chronic pain Coccyx pain Dyspepsia Elevated lipase Elevated white blood cell count GERD (gastroesophageal reflux disease) Heart palpitations History of encephalitis Hypothyroidism (acquired) Irritable bowel syndrome Knee osteoarthritis Mixed hyperlipidemia Rhinorrhea Seronegative rheumatoid arthritis Tachycardia Ulcerative colitis Surgical History Surgical History History of cataract surgery History of tonsillectomy and adenoidectomy Family History Family History Father Hypertension Heart disease Acute myocardial infarction Mother Hypertension Heart disease Sibling Heart disease Acute myocardial infarction Social History Social History (Updated 11/07/22 @ 20:14 by Diamond Bourne APRN) Social History: Patient currently lives at home with her significant other, David Roy. Full Code. Surrogate decision maker: Portia Engle (niece). 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 Gender identity (if verbalized by the patient): Female Spiritual care concerns: No Meds Home Medications and Allergies Home Medications Medication Instructions Recorded Confirmed Type levothyroxine 50 mcg tablet 50 mcg PO DAILY #90 tabs 05/16/22 11/07/22 Rx cholecalciferol (vitamin D3) 1,250 50,000 unit PO WEEKLY #12 tabs 09/12/22 11/07/22 Rx mcg (50,000 unit) tablet hydrocodone 7.5 mg-acetaminophen 1 tablet PO Q8H PRN pain #90 tabs 10/09/22 11/07/22 Rx 325 mg tablet lorazepam 1 mg tablet 1 mg PO BID PRN Anxiety #40 tabs 10/22/22 11/07/22 Rx multivitamin (One Daily 1 tablet PO DAILY 10/22/22 11/07/22 History Multivitamin tablet) esomeprazole magnesium 40 mg 40 mg PO DAILY #30 caps 10/30/22 0
[2022-11-07] MEDS: MORPHINE SULFATE (*CRX) 4 MG/ML INJ IV PUSH (20:15)
[2022-11-07] MEDS: METOPROLOL TARTRATE 25 MG TABLET PO (22:14)
--- NOTE | 2022-11-08 | ECHO_ITS ---
Patient Info Name: Windy Kan Age: 71 years : 1950 Gender: Female Ht: 68 in Wt: 284 lbs BSA: 2.55 m2 HR: 110 bpm BP: 137 / 84 mmHg Heart Rhythm: Sinus Rhythm Technical Quality: Fair Exam Date: 11/08/2022 3:33 PM Exam Location: [facility] Patient Status: Inpatient Admit Date: 11/08/2022 Staff Ordering Physician: Bimal Keita Granite Installer: Katia Ferrell RDCS Attending Provider: Dora Floyd DO Referring Physician: Bossman BANKS; Exam Type: CA echo doppler color flow Study Info Indications - pericardial effusion Complete two-dimensional, color flow and Doppler transthoracic echocardiogram is performed. Summary 1. Complete two-dimensional, color flow and Doppler transthoracic echocardiogram is performed. 2. Left ventricular chamber dimension is normal. 3. Left ventricular systolic function is normal, estimated at 60-65%. 4. The left ventricular diastolic function is grade I diastolic dysfunction. 5. E/e' 11 is mildly elevated. 6. There is trace tricuspid valve regurgitation. 7. No pulmonary hypertension, estimated pulmonary arterial systolic pressure is 39 mmHg. 8. Dilated inferior vena cava with <50% collapse upon inspiration consistent with significantly elevated right atrial pressure, 15 mmHg. 9. Pleural effusion noted. 10. There is moderate to large circumferential pericardial effusion with average measurements about 1.8 cm. Left Ventricle E/e' 11 is mildly elevated. Left ventricular chamber dimension is normal. Left ventricular systolic function is normal, estimated at 60-65%. The left ventricular diastolic function is grade I diastolic dysfunction. Right Ventricle Right ventricular chamber dimension is normal. Right ventricular systolic function is normal. Left Atria Left atrial chamber dimension is normal. Right Atria Right atrial chamber dimension is normal. Aortic Valve The aortic valve is trileaflet. There is no aortic valve stenosis. There is no aortic valve regurgitation. Pulmonic Valve There is no pulmonic regurgitation. Mitral Valve There is no mitral valve stenosis. There is no mitral valve regurgitation. Tricuspid Valve There is trace tricuspid valve regurgitation. No pulmonary hypertension, estimated pulmonary arterial systolic pressure is 39 mmHg. Pericardium/Pleural There is moderate to large circumferential pericardial effusion with average measurements about 1.8 cm. Pleural effusion noted. No cardiac tamponade. Inferior Vena Cava Dilated inferior vena cava with <50% collapse upon inspiration consistent with significantly elevated right atrial pressure, 15 mmHg. Aorta The aortic root size at the sinus of Valsalva is normal. Left Ventricular Outflow Tract Name Value Normal LVOT 2D LVOT Diameter 2.0 cm LVOT Doppler LVOT Peak Gradient 4 mmHg LVOT Mean Gradient 2 mmHg LVOT VTI 15 cm LVOT VTI/AV VTI Ratio 0.8 LVOT Stroke Volume 46 ml LVOT CO 4.7 l/min LVOT CI 1.8 l/min/m2 Pulmonic Valve -------
[2022-11-08] MEDS: PIPERACILLN/TAZ 3.375GM/NS50ML 3.375 GM/50 ML BAG IVPB ×5 (00:25→23:23)
[2022-11-08] MEDS: SODIUM CHLORIDE 0.9% IV 1,000 ML 125 ML IV CONT ×2 (00:35→11:44)
[2022-11-08] MEDS: MORPHINE SULFATE (*CRX) 4 MG/ML INJ IV PUSH ×2 (00:40→11:25)
[2022-11-08 06:00] VITALS: BP 137/84; PULSE 108; RESP 18; TEMP 36.9; O2SAT 86
[2022-11-08 07:18] LABS: Basophils Absolute Auto 0.1 K/mm3 (0.0-0.1); Basophils Percent Auto 0.6 % (0.2-1.2); Eosinophils Percent Auto 0.1 % (0-4.4); Hematocrit 39.4 % (37.0-47.0); Hemoglobin 12.1 g/dL (12.0-15.0); Immature Granulocyte Absolute 0.09 K/mm3 (0.00-0.031); Immature Granulocyte Percent A 0.5 % (0-0.5); Lymphocytes Percent Auto 15.2 % (18.3-44.2); Mean Corpuscular HGB Conc 30.7 g/dl (32-36); Mean Corpuscular Hemoglobin 28.9 pg (26-34); Mean Platelet Volume 9.1 fl (7.4-10.4); Monocytes Absolute Auto 3.1 K/mm3 (0.1-0.6); Monocytes Percent Auto 16.2 % (2.6-8.5); Neutrophils Absolute Auto 12.9 K/mm3 (1.3-6.7); Neutrophils Percent Auto 67.4 % (45.5-73.1); Platelet Count Result 525 k/mm3 (150-375); Red Blood Count 4.19 M/mm3 (4.2-5.4); Red Cell Distribution Width 14.4 % (11.5-14.5); White Blood Count 19.1 K/mm3 (4.5-10.0)
[2022-11-08 07:28] LABS: Alanine Aminotransferase 90 U/L (6-35); Albumin Level 3.7 g/dL (3.5-5.1); Alkaline Phosphatase 65 U/L (38-126); Anion Gap 11 mmol/L (8-16); Aspartate Amino Transferase 93 U/L (14-36); Bilirubin,Total 1.2 mg/dL (0.2-1.3); Blood Urea Nitrogen 32 mg/dL (7-17); Calcium 9.7 mg/dL (8.4-10.2); Carbon Dioxide 21 mmol/L (22-30); Chloride 104 mmol/L (98-107); Estimated CRCL calculation 65 ml/min; Estimated Glomerular Filt Rate 55; Glucose 129 mg/dL (65-110); Potassium 5.2 mmol/L (3.4-5.0); Sodium 136 mmol/L (137-145)
[2022-11-08] MEDS: PANTOPRAZOLE SODIUM IV 40 MG VIAL IV PUSH ×2 (11:17→20:11)
[2022-11-08] MEDS: MULTIVITAMINS THERAPEUTIC TAB (*BKC) 1 TABLET PO (11:17)
[2022-11-08 11:18] VITALS: PULSE 96
[2022-11-08] MEDS: METOPROLOL TARTRATE 12.5 MG TABLET PO (11:18)
[2022-11-08] MEDS: LEVOTHYROXINE SODIUM 50 MCG TABLET PO (11:24)
--- NOTE | 2022-11-08 12:45 | PM.IMPN ---
Progress Note: A&P Assessment and Plan (1) Cholecystitis: Code(s): K81.9 - Cholecystitis, unspecified Status: Acute Assessment and Plan: Presented with abdominal pain in the right upper quadrant Ct of the abdomen and pelvis show gallbladder wall thickening consistent with cholecystitis LFTs elevated at AST/ALT 43/44 at time of admission, currently 93/90 T. Bili 1.4, currently at 1.2 WBC 16.6 upon admission, currently 19.1 Consulted GI thank you for your help General surgery consulted Hida scan normal with an EF of 34% Full liquids Pain medications await further recommendation (2) Upper abdominal pain: Code(s): R10.10 - Upper abdominal pain, unspecified Status: Acute Assessment and Plan: See above (3) Sepsis: Qualifiers: Sepsis acute organ dysfunction status: with acute organ dysfunction Sepsis type: sepsis due to unspecified organism Severe sepsis acute organ dysfunction type: unspecified Severe sepsis shock status: unspecified Qualified Code(s): A41.9 - Sepsis, unspecified organism; R65.20 - Severe sepsis without septic shock Code(s): A41.9 - Sepsis, unspecified organism Status: Acute Assessment and Plan: Meets sirs criteria leukocytosis, tachycardia, tachypnea, fever 100.7 Lactic acid 2.9 upon admission, repeat 2.6 CT of the abdomen showed acute cholecystitis WBC elevated 16.6, currently up at 19.1 Source of infection UTI, or Gallbladder IV hydration given in the ED Blood culture ordered Urine culture pending Zosyn continued for now trend labs Adjust therapy as indicated (4) Autoimmune disease, not elsewhere classified: Code(s): M35.9 - Systemic involvement of connective tissue, unspecified Status: Acute Assessment and Plan: Stable Intermittent prednisone (5) Elevated LFTs: Code(s): R79.89 - Other specified abnormal findings of blood chemistry Status: Acute Assessment and Plan: AST/ALT elevated related to the acute illness Continue to trend labs Adjust therapy as indicated (6) Hyperkalemia: Code(s): E87.5 - Hyperkalemia Status: Acute Assessment and Plan: K is 5.2 continue to trend potassium Trend potassium Adjust therapy as indicated (7) Pericardial effusion: Code(s): I31.39 - Other pericardial effusion (noninflammatory) Status: Acute Assessment and Plan: CT showed moderate pericardial effusion Echo ordered Trop ordered EKG ordered Consider cardiology consult Plan Start PPI BID Time Spent With Patient Time: 51 minutes Time with patient: Greater than 35 minutes Subjective Date/time seen: 11/08/22 1245 Interval history: 11/08/22 1245 Patient is lying in the bed. Patient states that she has been a lot of pain which starts in the epigastric region radiates up to her chest to her jaw. She denies any current nausea or vomiting. However she did state that she has not been able to eat over the last couple of weeks. She states that when she does eat she feels very nauseous and it hurts. Patient also stated that she has a cough. She stated that her cough is producing yellow-green phlegm. She stated that she had lost weight, but over the last few days she has also gained weight. She claims that it is water. Partner was in there with her and she did give permission to talk in front of him. Hida scan was negative, did start her on a diet. Reviewed the CT again and it does appear to have a moderate pericardial effusion. Trop ordered, ekg, and chest xray. Consider consulting cardiology. 11/07/22? 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
--- NOTE | 2022-11-08 12:45 | P.PNIM_ITS ---
Progress Note: A&P Assessment and Plan (1) Cholecystitis: Code(s): K81.9 - Cholecystitis, unspecified Status: Acute Assessment and Plan: * Presented with abdominal pain in the right upper quadrant * Ct of the abdomen and pelvis show gallbladder wall thickening consistent with cholecystitis * LFTs elevated at AST/ALT 43/44 at time of admission, currently 93/90 * T. Bili 1.4, currently at 1.2 * WBC 16.6 upon admission, currently 19.1 * Consulted GI thank you for your help * General surgery consulted * Hida scan normal with an EF of 34% * Full liquids * Pain medications * await further recommendation (2) Upper abdominal pain: Code(s): R10.10 - Upper abdominal pain, unspecified Status: Acute Assessment and Plan: * See above (3) Sepsis: Qualifiers: Sepsis acute organ dysfunction status: with acute organ dysfunction Sepsis type: sepsis due to unspecified organism Severe sepsis acute organ dysfunction type: unspecified Severe sepsis shock status: unspecified Qualified Code(s): A41.9 - Sepsis, unspecified organism; R65.20 - Severe sepsis without septic shock Code(s): A41.9 - Sepsis, unspecified organism Status: Acute Assessment and Plan: * Meets sirs criteria leukocytosis, tachycardia, tachypnea, fever 100.7 * Lactic acid 2.9 upon admission, repeat 2.6 * CT of the abdomen showed acute cholecystitis * WBC elevated 16.6, currently up at 19.1 * Source of infection UTI, or Gallbladder * IV hydration given in the ED * Blood culture ordered * Urine culture pending * Zosyn continued for now * trend labs * Adjust therapy as indicated (4) Autoimmune disease, not elsewhere classified: Code(s): M35.9 - Systemic involvement of connective tissue, unspecified Status: Acute Assessment and Plan: * Stable * Intermittent prednisone (5) Elevated LFTs: Code(s): R79.89 - Other specified abnormal findings of blood chemistry Status: Acute Assessment and Plan: * AST/ALT elevated * related to the acute illness * Continue to trend labs * Adjust therapy as indicated (6) Hyperkalemia: Code(s): E87.5 - Hyperkalemia Status: Acute Assessment and Plan: * K is 5.2 * continue to trend potassium * Trend potassium * Adjust therapy as indicated (7) Pericardial effusion: Code(s): I31.39 - Other pericardial effusion (noninflammatory) Status: Acute Assessment and Plan: * CT showed moderate pericardial effusion * Echo ordered * Trop ordered * EKG ordered * Consider cardiology consult Plan Start PPI BID Time Spent With Patient Time: 51 minutes Time with patient: Greater than 35 minutes Subjective Date/time seen: 11/08/221244 Interval history: 11/08/221244 Patient is lying in the bed. Patient states that she has been a lot of pain which starts in the epigastric region radiates up to her chest to her jaw. She denies any current nausea or vomiting. However she did state that she has not been able to eat over the last couple of weeks. She states that when she does eat she feels very nauseous and it hurts. Patient also stated that she has a cough. She stated that her cough is producing yellow-green phlegm. She stated that she had lost weig
[2022-11-08 14:00] VITALS: BP 124/73; PULSE 109; RESP 18; TEMP 36.8; O2SAT 92
[2022-11-08] MEDS: FUROSEMIDE INJ 40 MG/4 ML VIAL IV PUSH (15:02)
[2022-11-08] MEDS: SODIUM CHLORIDE 0.9% IV 1,000 ML 75 ML IV CONT ×2 (15:03→23:24)
[2022-11-08 15:26] LABS: Troponin I < 0.012 ng/mL (0.000-0.034)
--- NOTE | 2022-11-08 15:27 | WPDGICN ---
Assessment and Plan Assessment and plan (1) Pericardial effusion: Code(s): I31.39 - Other pericardial effusion (noninflammatory) Status: Acute Assessment and Plan: probably this is cause of chest pain with upper abdominal discomfort reviewed abdominal ultrasound and hida scan- normal mild elevated transaminases could be also from systemic condition/fever/uti, etc (2) Chest pain: Code(s): R07.9 - Chest pain, unspecified Status: Acute (3) Nausea: Code(s): R11.0 - Nausea Status: Acute Assessment and Plan: antiemetics prn (4) Upper abdominal pain: Code(s): R10.10 - Upper abdominal pain, unspecified Status: Acute Assessment and Plan: monitor (5) Elevated LFTs: Code(s): R79.89 - Other specified abnormal findings of blood chemistry Status: Acute Assessment and Plan: probably related to presentation with sepsis ? uti, also possible pericarditis with effusion monitor (6) Sepsis: Qualifiers: Sepsis type: sepsis due to unspecified organism Sepsis acute organ dysfunction status: with acute organ dysfunction Severe sepsis acute organ dysfunction type: unspecified Severe sepsis shock status: unspecified Qualified Code(s): A41.9 - Sepsis, unspecified organism; R65.20 - Severe sepsis without septic shock Code(s): A41.9 - Sepsis, unspecified organism Status: Acute (7) Autoimmune disease, not elsewhere classified: Code(s): M35.9 - Systemic involvement of connective tissue, unspecified Status: Acute (8) Ulcerative colitis: Qualifiers: Ulcerative colitis location: unspecified ulcerative colitis location Digestive disease complication type: without complication Qualified Code(s): K51.90 - Ulcerative colitis, unspecified, without complications Code(s): K51.90 - Ulcerative colitis, unspecified, without complications Status: Acute Assessment and Plan: last colonoscopy 2021 normal colon, she is not longer on mesalamine she has seeing Dr Disla in the past denies diarrhea GI Consult Note Consult date/time: 11/08/22 15:27 Reason for consult: elevated liver enzymes HPI: Windy Kan is a 71 year old female with history of ?inflammatory bowel disease involving the rectum and sigmoid colon, biopsies suggestive of an indeterminate colitis and was on mesalamine but repeat colonoscopy 2021 normal colon mucosa without any more colitis and she has not been on mesalamine or any othe medication for that since. 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 This time she came to ER 8 days ago for evaluation a cough and chest pain, sensation of an irregular, rapid heartbeat, pain worse after coughing. chest x-ray that showed left basilar atelectasis.?Also had negative V/Q pulmonary perfusion scan. Also empirically started on nexium. Since with generalized malaise and started having a fever and chills,?temperature as high as 101.1? F, taking Tylenol for her fever, also nausea and dry heaving, poor appetite. Day of admission noted hematuria.? [place] [address], lactic acid 2.9, total bilirubin 1.4, AST 43, ALT 44, alk-phos 76, lipase normal.? Urinalysis shows cloudy orange urine with a specific gravity of 1.046, 1+ protein, 2+ bilirubin, 1+ leukocyte, 21-50 urine rbc's.? Chest x-ray shows small left pleural effusion and minimal right pleural effusion with probable bibasilar atelectasis.? CT scan of the abdomen and pelvis showed mild gallbladder wall thickening and suspected gallbladder sludge, moderate pericardial effusion, small bilateral pleural effusions with bibasilar scarring or atelectasis. Abdominal ultrasound and HIDA scan normal. Review of Systems Constitutional: Constitutional: Reports chills and Reports fatigue Eyes: Eyes: Denies blurry vision ENT: Jose
--- NOTE | 2022-11-08 16:40 | PM.PNGS ---
Progress Note: A&P Assessment and Plan (1) Upper abdominal pain: Code(s): R10.10 - Upper abdominal pain, unspecified Status: Acute Assessment and Plan: Persists. Etiology not clear (2) Sepsis: Qualifiers: Sepsis type: sepsis due to unspecified organism Sepsis acute organ dysfunction status: with acute organ dysfunction Severe sepsis acute organ dysfunction type: unspecified Severe sepsis shock status: unspecified Qualified Code(s): A41.9 - Sepsis, unspecified organism; R65.20 - Severe sepsis without septic shock Code(s): A41.9 - Sepsis, unspecified organism Status: Acute Assessment and Plan: On antibiotics, source not clear (3) Abnormal computerized tomography of biliary tract: Code(s): R93.2 - Abnormal findings on diagnostic imaging of liver and biliary tract Status: Acute Assessment and Plan: Despite CT scan suggesting gallbladder wall thickness and possibly some sludge, both the ultrasound and HIDA scan are normal. I do not feel her epigastric pain and sepsis are due to cholecystitis or gallbladder disease in general. If we can be of any further assistance please let us know. Subjective Subjective Date/Time Seen: 11/08/22 16:40 Patient reports: still having pain, nausea and fever (Yesterday, none since) Interval history: Still having epigastric pain radiates to her chest. No further fevers today Review of Systems Review of Systems: All systems reviewed & are unremarkable except as noted in HPI and below (HPI and those items noted below) Constitutional: Constitutional: Denies chills and Denies fever(s) Cardiovascular: Cardiovascular: Denies diaphoresis, Denies dyspnea and Denies paroxysmal nocturnal dyspnea Respiratory: Respiratory: Denies chest congestion, Denies cough and Denies dyspnea Integumentary/Breasts: Skin/Breast: Denies lesions and Denies rash Exam Const: General: comfortable, no acute distress, alert, awake and obese Orientation/consciousness: No confusion GI: Inspection: non-distended and obesity GI Palp: Yes Soft to palpation, Yes Tenderness to palpation present (GI) (Epigastric area) and Yes No hepatosplenomegaly present Objective Data Vital Signs Vital Signs: Vital Signs - 24 hr 11/07/22 22:14 11/07/22 22:00 11/07/22 20:00 Temperature 36.9 C Pulse Rate 115 H 120 H 115 H Respiratory Rate 20 20 Blood Pressure 110/80 Pulse Oximetry 90 90 Oxygen Delivery Room Air 11/08/22 06:00 11/08/22 11:18 11/08/22 14:00 Temperature 36.9 C 36.8 C Pulse Rate 108 H 96 109 H Respiratory Rate 18 18 Blood Pressure 137/84 124/73 Pulse Oximetry 86 L 92 Oxygen Delivery 11/08/22 08:00 Temperature Pulse Rate Respiratory Rate Blood Pressure Pulse Oximetry Oxygen Delivery Room Air Intake/Output Intake/Output: Intake & Output 11/05/22 11/06/22 11/07/22 11/08/22 23:59 23:59 23:59 23:59 Intake Total 2100 2150 Balance 2100 2150 Meds/Results Medications: Active Medications Generic Name Dose Route Start Last Admin Trade Name Freq PRN Reason Stop Dose Admin Ergocalciferol 50,000 units 11/11/22 09:00 Ergocalciferol 50,000 Units Capsule PO Mo@0900 GORDON Piperacillin/Tazobactam/Dextrose 3.375 gm in 50 mls @ 100 mls/hr 11/07/22 18:00 11/08/22 11:49 Zosyn 3.375 Gm/Ns 50 Ml IVPB Infused Q6H GORDON Infusion Sodium Chloride 1,000 mls @ 75 mls/hr 11/07/22 13:30 11/08/22 15:03 Normal Saline Iv IV CONT 75 mls/hr .[id number] GORDON Administration Levothyroxine Sodium 50 mcg 11/08/22 06:30 11/08/22 11:24 Levothyroxine Sodium 50 Mcg Tablet PO 50 mcg DAILY@0630 GORDON Administration Metoprolol Tartrate 25 mg 11/07/22 21:00 11/07/22 22:14 Metoprolol Tartrate 25 Mg Tablet PO 25 mg HS GORDON Administration Metoprolol Tartrate 12.5 mg 11/08/22 09:00 11/08/22 11:18 Metoprolol Tartrate 12.5 Mg Tablet PO 12.5 mg DAILY GORDON Administration Morphine Sul
[2022-11-08 18:45] LABS: Troponin I 0.014 ng/mL (0.000-0.034)
[2022-11-08 20:00] VITALS: PULSE 109; RESP 18; O2SAT 92
[2022-11-08] MEDS: HYDROcodone/acetaminophen (*CRX) 7.5-325 MG TABLET 1 TAB PO (20:09)
[2022-11-08] MEDS: METOPROLOL TARTRATE 25 MG TABLET PO (20:10)
[2022-11-08 22:00] VITALS: BP 117/71; PULSE 95; RESP 18; TEMP 35.9; O2SAT 90
[2022-11-09] VITALS (15 sets, daily range): BP systolic 100–152; BP diastolic 59–116; PULSE 123–155; RESP 20–24; TEMP 35.8–37.1; O2SAT 89–99
[2022-11-09] MEDS: PIPERACILLN/TAZ 3.375GM/NS50ML 3.375 GM/50 ML BAG IVPB ×3 (04:57→17:50)
[2022-11-09] MEDS: LORazepam (*CRX) 1 MG TABLET PO ×2 (05:03→17:40)
[2022-11-09 05:52] LABS: Basophils Absolute Auto 0.1 K/mm3 (0.0-0.1); Basophils Percent Auto 0.7 % (0.2-1.2); Eosinophils Absolute Auto 0.1 K/mm3 (0-0.3); Eosinophils Percent Auto 0.5 % (0-4.4); Hematocrit 37.8 % (37.0-47.0); Hemoglobin 11.7 g/dL (12.0-15.0); Immature Granulocyte Absolute 0.11 K/mm3 (0.00-0.031); Immature Granulocyte Percent A 0.7 % (0-0.5); Lymphocytes Absolute Auto 1.73 K/mm3 (0.9-3.2); Lymphocytes Percent Auto 10.3 % (18.3-44.2); Mean Corpuscular Hemoglobin 28.3 pg (26-34); Mean Corpuscular Volume 91.5 fl (80-100); Mean Platelet Volume 9.4 fl (7.4-10.4); Monocytes Absolute Auto 2.1 K/mm3 (0.1-0.6); Monocytes Percent Auto 12.5 % (2.6-8.5); Neutrophils Absolute Auto 12.7 K/mm3 (1.3-6.7); Neutrophils Percent Auto 75.3 % (45.5-73.1); Platelet Count Result 541 k/mm3 (150-375); Red Blood Count 4.13 M/mm3 (4.2-5.4); Red Cell Distribution Width 14.4 % (11.5-14.5); White Blood Count 16.9 K/mm3 (4.5-10.0)
[2022-11-09 06:02] LABS: Alanine Aminotransferase 103 U/L (6-35); Albumin Level 3.8 g/dL (3.5-5.1); Alkaline Phosphatase 75 U/L (38-126); Anion Gap 12 mmol/L (8-16); Aspartate Amino Transferase 68 U/L (14-36); Bilirubin,Total 1.1 mg/dL (0.2-1.3); Blood Urea Nitrogen 28 mg/dL (7-17); Calcium 9.7 mg/dL (8.4-10.2); Carbon Dioxide 22 mmol/L (22-30); Chloride 102 mmol/L (98-107); Estimated CRCL calculation 71 ml/min; Estimated Glomerular Filt Rate > 60; Glucose 113 mg/dL (65-110); Magnesium 2.4 mg/dL (1.6-2.3); Potassium 3.9 mmol/L (3.4-5.0); Sodium 136 mmol/L (137-145)
--- NOTE | 2022-11-09 09:08 | ECG_ITS ---
Measurements Intervals [place] Rate: 152 P: [place]: 0 QRS: 22 QRSD: 81 T: 168 QT: 285 QTc: 454 Interpretive Statements ATRIAL FLUTTER/TACHYCARDIA WITH RAPID VENTRICULAR RESPONSE LOW QRS VOLTAGE IN LIMB LEADS BORDERLINE ST-T WAVE ABNORMALITY- DIFFUSE LEADS BASELINE WANDER- I, II, AVR, AVF, V1-V6 ABNORMAL ECG COMPARED TO ECG 11/07/2022 07:21:40 ATRIAL FLUTTER NOW PRESENT Electronically Signed On 11-09-2022 10:46:51 CDT by Steven Caro D.O.
[2022-11-09] MEDS: MORPHINE SULFATE (*CRX) 4 MG/ML INJ IV PUSH (09:20)
[2022-11-09] MEDS: METOPROLOL TARTRATE 12.5 MG TABLET PO (09:20)
[2022-11-09] MEDS: MULTIVITAMINS THERAPEUTIC TAB (*BKC) 1 TABLET PO (09:20)
[2022-11-09] MEDS: PANTOPRAZOLE SODIUM IV 40 MG VIAL IV PUSH ×2 (09:20→20:42)
[2022-11-09 09:50] LABS: Lactic Acid Reflex 1.6 mmol/L (0.7-2.0)
[2022-11-09] MEDS: dilTIAZem HCl INJ 25 MG/5 ML VIAL 10 MG IV PUSH (09:55)
[2022-11-09 10:02] LABS: Troponin I < 0.012 ng/mL (0.000-0.034)
[2022-11-09 10:15] LABS: Erythrocyte Sedimentation Rate 65 mm/hr (0-20)
[2022-11-09 10:25] LABS: CRP 21.9 mg/dL (<1.0)
[2022-11-09 10:35] LABS: Procalcitonin 0.2 ng/mL
[2022-11-09] MEDS: dilTIAZem 100 MG/100 ML 100 MG/100 ML BAG IV CONT (10:38)
--- NOTE | 2022-11-09 11:08 | WPDGIPROGNO ---
Progress Note: A&P Assessment and Plan (1) Chest pain: Code(s): R07.9 - Chest pain, unspecified Status: Acute Assessment and Plan: upper abdominal/chest pain probably not related to GB- hida scan and ultrasound negative she had pericardial effusion and echo is pending, also today with tachycardia on cardizem drip mild elevated transaminases could be from ongoing cardiac issue/effusion/early sepsis, etc will follow from [place] ok to advance diet (2) Pericardial effusion: Code(s): I31.39 - Other pericardial effusion (noninflammatory) Status: Acute (3) Elevated LFTs: Code(s): R79.89 - Other specified abnormal findings of blood chemistry Status: Acute Assessment and Plan: probably multifactorial this can be repeated as outpatient and if persistent elevated then can see her in office (4) Sepsis: Qualifiers: Sepsis type: sepsis due to unspecified organism Sepsis acute organ dysfunction status: with acute organ dysfunction Severe sepsis acute organ dysfunction type: unspecified Severe sepsis shock status: unspecified Qualified Code(s): A41.9 - Sepsis, unspecified organism; R65.20 - Severe sepsis without septic shock Code(s): A41.9 - Sepsis, unspecified organism Status: Acute Assessment and Plan: on abx pending cultures (5) Autoimmune disease, not elsewhere classified: Code(s): M35.9 - Systemic involvement of connective tissue, unspecified Status: Acute (6) Cardiac arrhythmia: Qualifiers: Arrhythmia type: unspecified cardiac arrhythmia Qualified Code(s): I49.9 - Cardiac arrhythmia, unspecified Code(s): I49.9 - Cardiac arrhythmia, unspecified Status: Acute (7) Ulcerative colitis: Qualifiers: Ulcerative colitis location: unspecified ulcerative colitis location Digestive disease complication type: without complication Qualified Code(s): K51.90 - Ulcerative colitis, unspecified, without complications Code(s): K51.90 - Ulcerative colitis, unspecified, without complications Status: Acute Assessment and Plan: last colonoscopy normal and she is not taking any medication she can had routine follow-up in office Subjective Date/time seen: 11/09/22 11:08 Interval history: she was transferred to [facility] [place] [facility] bed because tachycardia and started on cardizem drip, now better Review of Systems Review of Systems: All systems reviewed & are unremarkable except as noted in HPI and below Exam Const: General: comfortable, no acute distress and awake Orientation/consciousness: patient oriented x3 HENMT: Head: normocephalic and atraumatic Ears: hearing grossly normal bilaterally Eyes: General: appearance normal, both eyes and all related structures Pupils: Equal, round and reactive pupils present Neck: Neck: normal visual inspection and full ROM Resp: Effort & Inspection: no respiratory distress Auscultation: clear to auscultation bilaterally Cardio: Rate: tachycardic GI: Inspection: non-distended and obesity GI Palp: Yes Soft to palpation, Yes Tenderness to palpation present (GI) (mild epigastric, no rebound), No Guarding due to palpation present (GI) and No Rebound tenderness present Percussion: Yes normal to percussion Auscultation: normal bowel sounds Skin: General skin exam: normal color Rashes: no rashes Neuro: General: moves all extremities and no focal motor deficits Speech: normal speech Motor exam (neuro): 5/5 motor strength present throughout Extrem: General: normal to inspection and no edema Psych: Mental Status: mental status grossly normal Affect: normal affect Attitude: cooperative Insight: Good insight present (Psych) Judgement: Good judgement present (Psych) Objective Data Vital Signs Vital Signs: Vital Signs - 24 hr 11/08/22 11:18 11/08/22 14:00 11/08/22 20:00 Temperature 98.3 F Pulse Rate 96 109 H 109 H Respiratory Rate 18 18 Blood Pressure 1
[2022-11-09] MEDS: AMIODARONE 360 MG/D5W 200 ML 360 MG/200 ML BAG 33.33 MG IV CONT (13:08)
[2022-11-09] MEDS: AMIODARONE 150 MG/D5W 100 ML 150 MG/100 ML BAG 600 MG IV CONT ×2 (13:09→22:33)
[2022-11-09] MEDS: KETOROLAC 30 MG/ML VIAL (*BKC) IV PUSH ×2 (13:09→21:58)
[2022-11-09] MEDS: COLCHICINE 0.6 MG TABLET 1.2 MG PO (13:44)
--- NOTE | 2022-11-09 14:06 | PM.CNCAR ---
Assessment and Plan Assessment and plan (1) Atrial flutter with rapid ventricular response: Code(s): I48.92 - Unspecified atrial flutter Status: Acute Assessment and Plan: Discussed at great length the patient can not bedside. New diagnosis early this morning atrial flutter with RVR. Patient is hemodynamically stable asymptomatic regards to worsening shortness of breath and chest x-ray with evidence of mild pulmonary vascular congestion. Given underlying pericardial effusion and patient's worsening symptoms review beneficial to restore sinus rhythm avoiding bradycardia and or significant hypotension. She has not responded diltiazem thus far. Discontinue now in favor of IV amiodarone bolus followed by continuous infusion per protocol. Discussed risks and benefits with patient and family at bedside including primary care service. Need to be cautious to avoid compensatory tachycardia in although patient is not clinically in tamponade physiology at this time. Given no prior known history and well-established initiation of atrial flutter early this morning likely of intracardiac thrombus is very low. We admits to follow based on patient's response to amiodarone. We discussed plans for short-term use is appropriate with amiodarone. Caution with aggressive AV eriberto blocking agents. Ideally, systemic anticoagulation may be considered, however, given pericardial effusion and symptoms suggestive of acute pericarditis with hold off on anticoagulation at this time. Continue telemetry. Continue monitor renal function, electrolytes closely. Patient has a history of underlying chronic sinus tachycardia for which he has been treated with metoprolol outpatient. If patient converts will plan to continue amiodarone for the near term with oral regimen 400mg BID as tolerated. CHADS2 Vasc score at least 3 systemic anticoagulation would otherwise be advised. Concerns with regards to bleeding risk and ulcer colitis persistent nonetheless. A continue metoprolol for now. I spent 84 minutes in the care of this patient at bedside including examination, discussion with the patient, family, additional care providers, chart review, medical decision-making, and documentation. (2) Pericardial effusion: Code(s): I31.39 - Other pericardial effusion (noninflammatory) Status: Acute Assessment and Plan: Large circumferential pericardial effusion without clear tamponade physiology. Slight right atrial free wall invagination suggestive of increased intrapericardial pressures. If patient becomes hypotensive aggressive IV fluid resuscitation advised. While we need to control heart rhythm avoidance of over suppression of heart rate response is important. There is no indication for urgent pericardiocentesis less patient becomes hemodynamically unstable. While I certainly believe she is more symptomatic in atrial flutter with RVR, pericardial effusion is not acute and given size clearly has been present for some time prior to admission likely weeks to possibly months. Etiology remains unclear. We discussed differential at length given patient's complex history infectious versus inflammatory would be the primary considerations. Pericardiocentesis may be considered if hemodynamic compromise or worsening symptoms not not able to be controlled thought to be secondary to her pericardial effusion. However, I suspect this is more chronic given presence of fibrinous material within the pericardial space as well. (3) Pericarditis: Qualifiers: Pericarditis type: idiopathic Chronicity: acute Qualified Code(s): I30.0 - Acute nonspecific idiopathic pericarditis Code(s): I31.9 - Disease of pericardium, unspecified Status: Acute Assessment and Plan: Etiology of patient's chest pain remains unclear. She gives a 1 year history of intermittent chest pain with cough and now more persistent and severe chest pain for the past several week
[2022-11-09] MEDS: AMIODARONE 360 MG/D5W 200 ML 360 MG/200 ML BAG 16.67 MG IV CONT (18:07)
--- NOTE | 2022-11-09 19:04 | PM.IMPN ---
Progress Note: A&P Assessment and Plan (1) Cholecystitis: Code(s): K81.9 - Cholecystitis, unspecified Status: Acute Assessment and Plan: Do not suspect acute cholecystitis Appreciate surgery and GI consultations (2) Upper abdominal pain: Code(s): R10.10 - Upper abdominal pain, unspecified Status: Acute Assessment and Plan: Likely secondary to pericardial effusion versus possible gastritis May need EGD once stabilized (3) Sepsis: Qualifiers: Sepsis type: sepsis due to unspecified organism Sepsis acute organ dysfunction status: with acute organ dysfunction Severe sepsis acute organ dysfunction type: unspecified Severe sepsis shock status: unspecified Qualified Code(s): A41.9 - Sepsis, unspecified organism; R65.20 - Severe sepsis without septic shock Code(s): A41.9 - Sepsis, unspecified organism Status: Acute Assessment and Plan: Started on Zosyn 11/07 Continue antibiotics for now, unsure if there is actually an infectious etiology (4) Autoimmune disease, not elsewhere classified: Code(s): M35.9 - Systemic involvement of connective tissue, unspecified Status: Acute Assessment and Plan: Stable, monitor (5) Elevated LFTs: Code(s): R79.89 - Other specified abnormal findings of blood chemistry Status: Acute Assessment and Plan: Unsure of etiology, likely secondary to a possible hypoperfusion in general illness (6) Hyperkalemia: Code(s): E87.5 - Hyperkalemia Status: Acute Assessment and Plan: Improving, monitor (7) Pericardial effusion: Code(s): I31.39 - Other pericardial effusion (noninflammatory) Status: Acute Assessment and Plan: Appreciate cardiology consultation, started on Toradol, colchicine as well as amiodarone for atrial flutter Hold off on anticoagulation for now, defer further management to Cardiology Plan DVT prophylaxis with SCDs GI prophylaxis with PPI Code status full code Subjective Date/time seen: 11/09/22 19:04 Interval history: No overnight events noted. Patient feels quite short of breath, continues to have chest pain. No nausea, vomiting or diarrhea. No fevers or chills. Review of Systems Review of Systems: 12 point review of systems was assessed and was negative except as noted in the HPI Exam Narrative: General: No acute distress, alert and oriented per baseline HEENT: Atraumatic, normocephalic, mucous membranes moist CV: Irregularly irregular, S1, S2, no JVD Lungs: Diminished at bases, scattered crackles noted Abdomen: Soft, nontender, nondistended Extremities: Normal to inspection Skin: No rashes noted, no lesions or wounds seen Psych: Somewhat anxious Objective Data Vital Signs Vital Signs: Vital Signs - 24 hr 11/08/22 20:00 11/08/22 22:00 11/09/22 06:00 Temperature 96.7 F L 96.4 F L Pulse Rate 109 H 95 140 H Respiratory Rate 18 18 24 H Blood Pressure 117/71 133/77 Pulse Oximetry 92 90 90 Oxygen Delivery Room Air Oxygen Flow Rate 11/09/22 09:20 11/09/22 10:27 11/09/22 10:38 Temperature Pulse Rate 148 H 155 H 146 H Respiratory Rate 22 H Blood Pressure 142/85 H 142/85 H Pulse Oximetry 94 Oxygen Delivery Nasal Cannula Oxygen Flow Rate 3 11/09/22 09:00 11/09/22 14:00 11/09/22 12:00 Temperature 97.7 F Pulse Rate 140 H 146 H Respiratory Rate 20 Blood Pressure 100/59 L Pulse Oximetry 94 93 Oxygen Delivery Nasal Cannula Oxygen Flow Rate 3 11/09/22 16:00 11/09/22 14:00 Temperature Pulse Rate 138 H 133 H Respiratory Rate Blood Pressure Pulse Oximetry Oxygen Delivery Oxygen Flow Rate Intake/Output Intake/Output: Intake & Output 11/06/22 11/07/22 11/08/22 11/09/22 23:59 23:59 23:59 23:59 Intake Total 2100 3850 570 Output Total 700 600 Balance 2099 0420 -30 Meds/Results Medications: Active Medi
[2022-11-09] MEDS: COLCHICINE 0.6 MG TABLET PO (20:42)
[2022-11-09] MEDS: METOPROLOL TARTRATE 25 MG TABLET PO (20:52)
[2022-11-09] MEDS: WATER FOR IRRIGATION, STERILE 1,000 ML BOTTLE 1000 ML (22:34)
[2022-11-10] VITALS (18 sets, daily range): BP systolic 107–139; BP diastolic 72–100; PULSE 108–139; RESP 16–22; TEMP 36.3–36.7; O2SAT 92–99
[2022-11-10] MEDS: PIPERACILLN/TAZ 3.375GM/NS50ML 3.375 GM/50 ML BAG IVPB ×4 (00:49→19:49)
[2022-11-10] MEDS: KETOROLAC 30 MG/ML VIAL (*BKC) IV PUSH ×3 (04:18→19:47)
[2022-11-10] MEDS: LEVOTHYROXINE SODIUM 50 MCG TABLET PO (06:07)
[2022-11-10] MEDS: AMIODARONE 360 MG/D5W 200 ML 360 MG/200 ML BAG 16.67 MG IV CONT ×2 (06:12→21:25)
[2022-11-10] MEDS: METOPROLOL TARTRATE 12.5 MG TABLET PO (11:00)
[2022-11-10] MEDS: MULTIVITAMINS THERAPEUTIC TAB (*BKC) 1 TABLET PO (11:00)
[2022-11-10] MEDS: COLCHICINE 0.6 MG TABLET PO ×2 (11:00→21:24)
[2022-11-10] MEDS: PANTOPRAZOLE SODIUM IV 40 MG VIAL IV PUSH ×2 (11:01→21:24)
[2022-11-10] MEDS: METOPROLOL TARTRATE INJ 5 MG/5 ML VIAL IV PUSH (13:04)
[2022-11-10 13:17] LABS: NT Pro B Type Natriuretic Pept 1050 pg/mL (19.9-100)
--- NOTE | 2022-11-10 15:16 | PM.PNCARD ---
Progress Note: A&P Assessment and Plan (1) Atrial flutter with rapid ventricular response: Code(s): I48.92 - Unspecified atrial flutter Status: Acute Assessment and Plan: Discussed at great length with patient and family at separate times at bedside. She remains hemodynamically stable but in AFib with RVR despite IV amiodarone and or metoprolol. Discussed at great length addendum complications the management this situation poses. Although precise risk remains unclear have some concern with regards to initiation of systemic anticoagulation setting of acute pericarditis in setting a large underlying pericardial effusion. If she were to have bleeding complication this could have serious hemodynamic consequences result in tamponade physiology which could be life-threatening. However, she is now feeling much better on colchicine in IV Toradol and now that we are moving in to 48 hours. Post initiation of atrial flutter of prefer to initiate systemic anticoagulation. Plan to repeat echocardiogram in 24-48 hours after initiation. If a flutter persists and respiratory status stabilizes and or improves to the point where she would be reasonable anesthesia candidate for EPHRAIM guided cardioversion we may attempt to proceed with restoring sinus rhythm this regard. However, given her respiratory status I have concern she may decompensated requiring intubation and mechanical ventilatory support given high flow nasal cannula dependence. He would be cautious with IV diuretics it I would like to give at least Lasix IV 20 mg x 1 observe response. She did not have labs drawn this morning. Will check BMP. Patient remains hemodynamically stable asymptomatic regards to worsening shortness of breath and chest x-ray with evidence of mild pulmonary vascular congestion on repeat x-ray today personally reviewed. Given underlying pericardial effusion and patient's worsening symptoms review beneficial to restore sinus rhythm avoiding bradycardia and or significant hypotension. Will give additional IV metoprolol 5 mg IV x1. Continue metoprolol tartrate orally 25 mg twice daily. I spent 46 minutes in the care of this patient at bedside including examination, discussion with the patient, family, additional care providers, chart review, medical decision-making, and documentation. (2) Pericardial effusion: Code(s): I31.39 - Other pericardial effusion (noninflammatory) Status: Acute Assessment and Plan: Large circumferential pericardial effusion without clear tamponade physiology. Slight right atrial free wall invagination suggestive of increased intrapericardial pressures. If patient becomes hypotensive aggressive IV fluid resuscitation advised. While we need to control heart rhythm avoidance of over suppression of heart rate response is important. There is no indication for urgent pericardiocentesis less patient becomes hemodynamically unstable. Plan to initiate systemic anticoagulation in the morning with heparin infusion initially to observe tolerance. Repeat echocardiogram in 48 hours to assess pericardial effusion size. (3) Pericarditis: Qualifiers: Pericarditis type: idiopathic Chronicity: acute Qualified Code(s): I30.0 - Acute nonspecific idiopathic pericarditis Code(s): I31.9 - Disease of pericardium, unspecified Status: Acute Assessment and Plan: Etiology of patient's chest pain remains unclear. She gives a 1 year history of intermittent chest pain with cough and now more persistent and severe chest pain for the past several weeks to recent months pleuritic in nature worse with deep breathing, coughing and certain movements. However, her ECG 11/07/2022 is consistent with acute pericarditis which is new compared to ECG from 10/30/2020. As such, will add colchicine 0.6 mg twice daily. Ideally at NSAID therapy such as ibuprofen, however, patient states she must avoid due to history of also required some ble
--- NOTE | 2022-11-10 15:56 | PM.IMPN ---
Progress Note: A&P Assessment and Plan (1) Pericardial effusion: Code(s): I31.39 - Other pericardial effusion (noninflammatory) Status: Acute Assessment and Plan: Appreciate cardiology consultation, started on Toradol, colchicine as well as amiodarone for atrial flutter Hold off on anticoagulation for now, defer further management to Cardiology Symptoms significantly improved (2) Cholecystitis: Code(s): K81.9 - Cholecystitis, unspecified Status: Acute Assessment and Plan: Do not suspect acute cholecystitis Appreciate surgery and GI consultations (3) Upper abdominal pain: Code(s): R10.10 - Upper abdominal pain, unspecified Status: Acute Assessment and Plan: Likely secondary to pericardial effusion versus possible gastritis May need EGD once stabilized (4) Sepsis: Qualifiers: Sepsis type: sepsis due to unspecified organism Sepsis acute organ dysfunction status: with acute organ dysfunction Severe sepsis acute organ dysfunction type: unspecified Severe sepsis shock status: unspecified Qualified Code(s): A41.9 - Sepsis, unspecified organism; R65.20 - Severe sepsis without septic shock Code(s): A41.9 - Sepsis, unspecified organism Status: Acute Assessment and Plan: Started on Zosyn 11/07 Continue antibiotics for now, unsure if there is actually an infectious etiology (5) Autoimmune disease, not elsewhere classified: Code(s): M35.9 - Systemic involvement of connective tissue, unspecified Status: Acute Assessment and Plan: Stable, monitor (6) Elevated LFTs: Code(s): R79.89 - Other specified abnormal findings of blood chemistry Status: Acute Assessment and Plan: Unsure of etiology, likely secondary to a possible hypoperfusion in general illness (7) Hyperkalemia: Code(s): E87.5 - Hyperkalemia Status: Acute Assessment and Plan: Improving, monitor (8) Atrial flutter with rapid ventricular response: Code(s): I48.92 - Unspecified atrial flutter Status: Acute Assessment and Plan: Appreciate cardiology consultation, may need cardioversion, discussed extensively with patient Plan DVT prophylaxis with SCDs GI prophylaxis with PPI Code status full code Subjective Date/time seen: 11/10/22 15:56 Interval history: 71-year-old female with past medical history significant for arrhythmia, autoimmune disorder, hypothyroidism among other comorbidities is presenting with multiple medical complaints and currently being treated for pericardial effusion. No overnight events noted. No chest pain or shortness of breath. No nausea, vomiting or diarrhea. No fevers or chills. Patient states her burning chest pain is almost completely resolved. Review of Systems Review of Systems: 12 point review of systems was assessed and was negative except as noted in the HPI Exam Narrative: General: No acute distress, alert and oriented per baseline HEENT: Atraumatic, normocephalic, mucous membranes moist CV: Irregularly irregular, S1, S2, no JVD Lungs: Diminished at bases, scattered crackles noted Abdomen: Soft, nontender, nondistended Extremities: Normal to inspection Skin: No rashes noted, no lesions or wounds seen Psych: Euthymic, less anxious Objective Data Vital Signs Vital Signs: Vital Signs - 24 hr 11/09/22 16:00 11/09/22 16:00 11/09/22 20:47 Temperature 98.7 F Pulse Rate 138 H 143 H Respiratory Rate 24 H Blood Pressure 120/82 Pulse Oximetry 99 94 Oxygen Delivery Nasal Cannula Oxygen Flow Rate 3 11/09/22 20:52 11/09/22 22:00 11/09/22 22:33 Temperature Pulse Rate 135 H 140 H Respiratory Rate Blood Pressure 152/116 H Pulse Oximetry Oxygen Delivery Oxygen Flow Rate 11/09/22 23:09 11/09/22 20:00 11/09/22 22:00 Temperature 97.3 F L Pulse Rate 123 H Respiratory
[2022-11-10 16:13] LABS: Anion Gap 9 mmol/L (8-16); Blood Urea Nitrogen 21 mg/dL (7-17); Calcium 9.4 mg/dL (8.4-10.2); Carbon Dioxide 22 mmol/L (22-30); Chloride 102 mmol/L (98-107); Estimated CRCL calculation 92 ml/min; Estimated Glomerular Filt Rate > 60; Glucose 96 mg/dL (65-110); Potassium 3.7 mmol/L (3.4-5.0); Sodium 133 mmol/L (137-145)
[2022-11-10] MEDS: HYDROcodone/acetaminophen (*CRX) 7.5-325 MG TABLET 1 TAB PO (17:02)
[2022-11-10] MEDS: METOPROLOL TARTRATE 25 MG TABLET PO (17:04)
[2022-11-10] MEDS: LORazepam (*CRX) 1 MG TABLET PO (18:13)
[2022-11-10] MEDS: CENTRAL LINE FLUSH 10 ML IV PUSH (21:24)
[2022-11-11] VITALS (17 sets, daily range): BP systolic 112–136; BP diastolic 63–86; PULSE 89–140; RESP 20–24; TEMP 36–36.3; O2SAT 92–99
[2022-11-11] MEDS: KETOROLAC 30 MG/ML VIAL (*BKC) IV PUSH ×2 (00:09→06:32)
[2022-11-11] MEDS: PIPERACILLN/TAZ 3.375GM/NS50ML 3.375 GM/50 ML BAG IVPB ×4 (00:11→18:18)
[2022-11-11] MEDS: LORazepam (*CRX) 1 MG TABLET PO ×2 (00:51→20:47)
[2022-11-11 04:46] LABS: Basophils Absolute Auto 0.1 K/mm3 (0.0-0.1); Basophils Percent Auto 0.7 % (0.2-1.2); Eosinophils Absolute Auto 0.4 K/mm3 (0-0.3); Eosinophils Percent Auto 3.1 % (0-4.4); Hematocrit 34.3 % (37.0-47.0); Hemoglobin 10.9 g/dL (12.0-15.0); Immature Granulocyte Percent A 0.8 % (0-0.5); Lymphocytes Absolute Auto 1.22 K/mm3 (0.9-3.2); Lymphocytes Percent Auto 10.3 % (18.3-44.2); Mean Corpuscular HGB Conc 31.8 g/dl (32-36); Mean Corpuscular Hemoglobin 28.4 pg (26-34); Mean Corpuscular Volume 89.3 fl (80-100); Mean Platelet Volume 9.2 fl (7.4-10.4); Monocytes Absolute Auto 1.4 K/mm3 (0.1-0.6); Monocytes Percent Auto 11.7 % (2.6-8.5); Neutrophils Absolute Auto 8.7 K/mm3 (1.3-6.7); Neutrophils Percent Auto 73.4 % (45.5-73.1); Platelet Count Result 485 k/mm3 (150-375); Red Blood Count 3.84 M/mm3 (4.2-5.4); Red Cell Distribution Width 13.8 % (11.5-14.5); White Blood Count 11.9 K/mm3 (4.5-10.0)
[2022-11-11 04:54] LABS: Alanine Aminotransferase 86 U/L (6-35); Albumin Level 3.1 g/dL (3.5-5.1); Alkaline Phosphatase 89 U/L (38-126); Anion Gap 4 mmol/L (8-16); Aspartate Amino Transferase 54 U/L (14-36); Bilirubin,Total 0.7 mg/dL (0.2-1.3); Blood Urea Nitrogen 19 mg/dL (7-17); Calcium 8.8 mg/dL (8.4-10.2); Carbon Dioxide 30 mmol/L (22-30); Chloride 101 mmol/L (98-107); Estimated CRCL calculation 81 ml/min; Estimated Glomerular Filt Rate > 60; Glucose 103 mg/dL (65-110); Potassium 3.5 mmol/L (3.4-5.0); Sodium 135 mmol/L (137-145)
[2022-11-11] MEDS: LEVOTHYROXINE SODIUM 50 MCG TABLET PO (06:28)
[2022-11-11] MEDS: CENTRAL LINE FLUSH 10 ML IV PUSH ×3 (06:32→20:53)
--- NOTE | 2022-11-11 08:00 | ECG_ITS ---
Measurements Intervals [place] Rate: 83 P: MO: 0 QRS: -6 QRSD: 89 T: -70 QT: 355 QTc: 418 Interpretive Statements ATRIAL FLUTTER/TACHYCARDIA DELAYED PRECORDIAL R/S TRANSITION BORDERLINE ST-T WAVE ABNORMALITY- ANTEROLAT/HIGH LAT LEADS ABNORMAL ECG COMPARED TO ECG 11/09/2022 09:16:33 HEART RATE HAS DECREASED Electronically Signed On 11-11-2022 10:27:22 CDT by Steven Caro D.O.
[2022-11-11] MEDS: METOPROLOL TARTRATE 25 MG TABLET PO ×2 (08:55→18:18)
[2022-11-11] MEDS: AMIODARONE 360 MG/D5W 200 ML 360 MG/200 ML BAG 16.67 MG IV CONT (08:55)
[2022-11-11] MEDS: ERGOCALCIFEROL 50,000 UNITS CAPSULE 50000 UNITS PO (08:55)
[2022-11-11] MEDS: COLCHICINE 0.6 MG TABLET PO ×2 (08:55→20:46)
[2022-11-11] MEDS: MULTIVITAMINS THERAPEUTIC TAB (*BKC) 1 TABLET PO (08:55)
[2022-11-11] MEDS: PANTOPRAZOLE SODIUM IV 40 MG VIAL IV PUSH ×2 (08:55→20:40)
--- NOTE | 2022-11-11 11:31 | PM.IMPN ---
Progress Note: A&P Assessment and Plan (1) Pericardial effusion: Code(s): I31.39 - Other pericardial effusion (noninflammatory) Status: Acute Assessment and Plan: Appreciate cardiology consultation, started on Toradol--decreased from q6h to q12h 11/11, colchicine, as well as amiodarone for atrial flutter Hold off on anticoagulation for now, defer further management to Cardiology Symptoms significantly improved (2) Atrial flutter with rapid ventricular response: Code(s): I48.92 - Unspecified atrial flutter Status: Acute Assessment and Plan: Appreciate cardiology consultation, may need cardioversion, discussed extensively with patient 11/11: rate controlled on amio, still in flutter (3) Sepsis: Qualifiers: Sepsis acute organ dysfunction status: with acute organ dysfunction Sepsis type: sepsis due to unspecified organism Severe sepsis acute organ dysfunction type: unspecified Severe sepsis shock status: unspecified Qualified Code(s): A41.9 - Sepsis, unspecified organism; R65.20 - Severe sepsis without septic shock Code(s): A41.9 - Sepsis, unspecified organism Status: Acute Assessment and Plan: Started on Zosyn 11/07 Continue antibiotics for now, unsure if there is actually an infectious etiology PCT 0.2, CRP 21.9 (4) Elevated LFTs: Code(s): R79.89 - Other specified abnormal findings of blood chemistry Status: Acute Assessment and Plan: Improving, monitor Suspect 2/2 hypoperfusion injury from afib rvr (5) Upper abdominal pain: Code(s): R10.10 - Upper abdominal pain, unspecified Status: Acute Assessment and Plan: Likely secondary to pericardial effusion versus possible gastritis May need EGD once stabilized, but more likely this was 2/2 pericarditis (6) Autoimmune disease, not elsewhere classified: Code(s): M35.9 - Systemic involvement of connective tissue, unspecified Status: Acute Assessment and Plan: Stable, monitor (7) Cholecystitis: Code(s): K81.9 - Cholecystitis, unspecified Status: Acute Assessment and Plan: Do not suspect acute cholecystitis Appreciate surgery and GI consultations (8) Hyperkalemia: Code(s): E87.5 - Hyperkalemia Status: Acute Assessment and Plan: Resolved Plan DVT prophylaxis with SCDs GI prophylaxis with PPI Code status full code Subjective Date/time seen: 11/11/22 11:31 Interval history: 71-year-old female with past medical history significant for arrhythmia, autoimmune disorder, hypothyroidism among other comorbidities is presenting with multiple medical complaints and currently being treated for pericardial effusion. No overnight events noted. No chest pain or shortness of breath. No nausea, vomiting or diarrhea. No fevers or chills. Feels much better. Still with pressure with positional changes. Review of Systems Review of Systems: 12 point review of systems was assessed and was negative except as noted in the HPI Exam Narrative: General: No acute distress, alert and oriented per baseline HEENT: Atraumatic, normocephalic, mucous membranes moist CV: Irregularly irregular, S1, S2, no JVD Lungs: Diminished at bases, scattered crackles noted Abdomen: Soft, nontender, nondistended Extremities: Normal to inspection Skin: No rashes noted, no lesions or wounds seen Psych: Euthymic, less anxious Objective Data Vital Signs Vital Signs: Vital Signs - 24 hr 11/10/22 13:04 11/10/22 16:00 11/10/22 17:04 Temperature 98.0 F Pulse Rate 139 H 137 H 138 H Respiratory Rate 18 Blood Pressure 139/100 H Pulse Oximetry 92 Oxygen Delivery Oxygen Flow Rate 11/10/22 12:00 11/10/22 16:00 11/10/22 12:00 Temperature Pulse Rate 123 H Respiratory Rate Blood Pressure Pulse Oximetry 95 95 Oxygen Delivery High Flow Nasal Cannula High Flow Rafy
[2022-11-11] MEDS: POTASSIUM CHLORIDE 20 MEQ ER TABLET PO (11:50)
[2022-11-11] MEDS: FUROSEMIDE INJ 40 MG/4 ML VIAL 20 MG IV PUSH (11:50)
[2022-11-11] MEDS: AMIODARONE HCL 200 MG TABLET 400 MG PO ×2 (12:05→18:18)
[2022-11-11] MEDS: HEPARIN SODIUM 5,000 UNITS/ML VIAL 3000 UNITS IV PUSH (12:07)
[2022-11-11 12:29] LABS: Basophils Absolute Auto 0.1 K/mm3 (0.0-0.1); Basophils Percent Auto 0.5 % (0.2-1.2); Eosinophils Absolute Auto 0.4 K/mm3 (0-0.3); Eosinophils Percent Auto 3.4 % (0-4.4); Hematocrit 36.1 % (37.0-47.0); Hemoglobin 11.3 g/dL (12.0-15.0); Immature Granulocyte Absolute 0.07 K/mm3 (0.00-0.031); Immature Granulocyte Percent A 0.5 % (0-0.5); Lymphocytes Absolute Auto 1.22 K/mm3 (0.9-3.2); Lymphocytes Percent Auto 9.5 % (18.3-44.2); Mean Corpuscular HGB Conc 31.3 g/dl (32-36); Mean Corpuscular Hemoglobin 27.8 pg (26-34); Mean Corpuscular Volume 88.9 fl (80-100); Mean Platelet Volume 9.3 fl (7.4-10.4); Monocytes Absolute Auto 1.4 K/mm3 (0.1-0.6); Monocytes Percent Auto 10.6 % (2.6-8.5); Neutrophils Absolute Auto 9.7 K/mm3 (1.3-6.7); Neutrophils Percent Auto 75.5 % (45.5-73.1); Platelet Count Result 522 k/mm3 (150-375); Red Blood Count 4.06 M/mm3 (4.2-5.4); Red Cell Distribution Width 13.8 % (11.5-14.5); White Blood Count 12.8 K/mm3 (4.5-10.0)
[2022-11-11 12:40] LABS: INR 1.4; Prothrombin Time 17.4 Seconds (11.1-14.7)
[2022-11-11 12:41] LABS: Partial Thromboplastin Time 30.4 SECONDS (22.3-36.8)
[2022-11-11 12:52] LABS: CRP 16.1 mg/dL (<1.0)
[2022-11-11 13:10] LABS: Procalcitonin 0.1 ng/mL
[2022-11-11] MEDS: HEPARIN SOD/D5W 100 UNITS/ML 25,000 UNITS/250 ML BAG 15 UNITS IV CONT (14:00)
--- NOTE | 2022-11-11 15:14 | PM.PNCARD ---
Progress Note: A&P Assessment and Plan (1) Atrial flutter with rapid ventricular response: Code(s): I48.92 - Unspecified atrial flutter Status: Acute Assessment and Plan: Heart rate much better controlled but remains in atrial flutter with variable AV block. Transition to oral amiodarone 400 mg twice daily discontinue IV infusion. Continue metoprolol tartrate 25 mg twice daily. Uptitration as tolerated and heart rate permits. Patient is currently asymptomatic in this regard. If cardioversion is needed she will require systemic anticoagulation. We discussed potential risk given pericarditis with bleeding within the pericardium, however, although this risk is difficult to gauge at the she is asymptomatic it is reasonable to initiate. Although we would prefer to initiate Eliquis and/or Xarelto have safety will start with the heparin infusion to reduce embolic stroke risk and repeat 2D echocardiogram 2 days to assess pericardium to assess for enlargement this may indicate bleeding. Patient verbalized understanding and agreed with plan of care. We may wish to continue with a rate control strategy until her respiratory status has improved further optimizing safety margin with regards to EPHRAIM guided cardioversion with Anesthesiology in the future. This decision will be made based on her clinical status and her ultimate preference. (2) Pericardial effusion: Code(s): I31.39 - Other pericardial effusion (noninflammatory) Status: Acute Assessment and Plan: Large circumferential pericardial effusion without clear tamponade physiology. Slight right atrial free wall invagination suggestive of increased intrapericardial pressures. If patient becomes hypotensive aggressive IV fluid resuscitation advised. While we need to control heart rhythm avoidance of over suppression of heart rate response is important. There is no indication for urgent pericardiocentesis less patient becomes hemodynamically unstable. Initiate systemic anticoagulation with heparin infusion initially to observe tolerance. Repeat echocardiogram in 48 hours to assess pericardial effusion size. (3) Pericarditis: Qualifiers: Pericarditis type: idiopathic Chronicity: acute Qualified Code(s): I30.0 - Acute nonspecific idiopathic pericarditis Code(s): I31.9 - Disease of pericardium, unspecified Status: Acute Assessment and Plan: Chest pain has completely resolved with Toradol and colchicine 0.6 mg twice daily. She is very pleased with how much better she is feeling. Given initiation of systemic anticoagulation agree with reduction and Toradol however plan to discontinue and observe tolerance. CRP and ESR quite elevated. She is feeling much better with colchicine and IV Toradol thus far chest pain is essentially resolved with exception of mild discomfort with deep breathing. Repeat ECG personally reviewed well difficult to accurately assess given underlying atrial flutter I do not appreciate persistence of diffuse J-point elevation as noted previously. (4) Pulmonary edema: Qualifiers: Chronicity: acute Qualified Code(s): J81.0 - Acute pulmonary edema Code(s): J81.1 - Chronic pulmonary edema Status: Acute Assessment and Plan: Will continue to cautiously diurese with IV Lasix 20 mg, will give another dose today. Patient states subjectively she is feeling better in this regard. Continue to monitor BMP. Will attempt to reduce O2 dependence need to be cautious to avoid intravascular volume depletion in setting of large pericardial effusion and potentially increasing risk for hemodynamic instability. Continue to monitor volume status closely. She has preserved LV systolic function by echocardiogram. Monitor electrolytes and replete as appropriate. (5) Sepsis: Qualifiers: Sepsis type: sepsis due to unspecified organism Sepsis acute organ dysfunction status: with acute organ d
[2022-11-11] MEDS: AZITHROMYCIN 250 MG TABLET 500 MG PO (18:17)
[2022-11-11] MEDS: HYDROcodone/acetaminophen (*CRX) 7.5-325 MG TABLET 1 TAB PO (20:47)
[2022-11-11 21:02] LABS: Partial Thromboplastin Time 57.5 SECONDS (22.3-36.8)
[2022-11-11] MEDS: HEPARIN SODIUM 5,000 UNITS/ML VIAL 3500 UNITS IV PUSH (21:37)
[2022-11-12] VITALS (19 sets, daily range): BP systolic 102–135; BP diastolic 62–86; PULSE 59–128; RESP 18–20; TEMP 35.9–36.4; O2SAT 89–97
--- NOTE | 2022-11-12 | ECHOL_ITS ---
Patient Info Name: Windy Kan Age: 71 years : 1950 Gender: Female Ht: 68 in Wt: 296 lbs BSA: 2.61 m2 HR: 122 bpm BP: 126 / 82 mmHg Heart Rhythm: Atrial Flutter Technical Quality: Fair Exam Date: 11/12/2022 1:52 PM Exam Location: [facility] Pulmonary Exam Room: 232 Patient Status: Inpatient Admit Date: 11/08/2022 Staff Ordering Physician: Stephanie Matos Weigher Bulker: Cece Tomas RDCS Attending Provider: Dora Floyd DO Referring Physician: Shawna WARREN; Exam Type: CA echo limited Study Info Indications - EVAL PERICARDIAL EFFUSION Limited two-dimensional transthoracic echocardiogram is performed. Summary 1. Technically difficult study with limited views. 2. Left ventricular chamber dimension is normal. 3. Left ventricular systolic function is normal, estimated at 55-60%. 4. There is mildly increased left ventricular wall thickness. 5. Trivial to small pericardial effusion with fibrinous material within the pericardial space. This is markedly improved compared to prior study 11/08/2022. No tamponade physiology. Left Ventricle Left ventricular chamber dimension is normal. Left ventricular systolic function is normal, estimated at 55-60%. There is mildly increased left ventricular wall thickness. Technically difficult study with limited views. Right Ventricle Normal right ventricular size and systolic function. Aortic Valve The aortic valve is not well visualized. Pulmonic Valve The pulmonic valve is not well visualized. Mitral Valve The mitral valve has normal leaflets. The mitral valve annulus is mildly calcified. Tricuspid Valve The tricuspid valve leaflets are not well visualized. Pericardium/Pleural Trivial to small pericardial effusion with fibrinous material within the pericardial space. This is markedly improved compared to prior study 11/08/2022. No tamponade physiology. Ventricles Name Value Normal LV Dimensions 2D/MM IVS Diastolic Thickness (2D) 1.2 cm 0.6-1.0 LVID Diastole (2D) 4.5 cm 3.8-5.2 LVIW Diastolic Thickness (2D) 1.3 cm 0.6-0.9 LVID Systole (2D) 3.1 cm 2.2-3.5 LV Mass (2D Cubed) 207.68 g 67.00-162.00 LV Mass Index (2D Cubed) 80 g/m2 43-95 Relative Wall Thickness (2D) 0.59 LV Fractional Shortening/Ejection Fraction 2D/MM LV Fractional Shortening (2D) 31 % 27-45 LV EF (2D Teicholz) 59 % 54-74 LV Diastolic Volume (4C MOD) 109 ml LV EF (4C MOD) 59 % LV Diastolic Length (4C) 7.7 cm LV Systolic Length (4C) 5.9 cm LV Stroke Volume (4C MOD) 65 ml Report Signatures
[2022-11-12] MEDS: PIPERACILLN/TAZ 3.375GM/NS50ML 3.375 GM/50 ML BAG IVPB ×4 (00:58→18:10)
[2022-11-12 04:17] LABS: Basophils Absolute Auto 0.1 K/mm3 (0.0-0.1); Basophils Percent Auto 0.6 % (0.2-1.2); Eosinophils Absolute Auto 0.5 K/mm3 (0-0.3); Eosinophils Percent Auto 3.8 % (0-4.4); Hemoglobin 11.1 g/dL (12.0-15.0); Immature Granulocyte Absolute 0.09 K/mm3 (0.00-0.031); Immature Granulocyte Percent A 0.8 % (0-0.5); Lymphocytes Absolute Auto 1.45 K/mm3 (0.9-3.2); Lymphocytes Percent Auto 12.2 % (18.3-44.2); Mean Corpuscular HGB Conc 31.7 g/dl (32-36); Mean Corpuscular Hemoglobin 28.1 pg (26-34); Mean Corpuscular Volume 88.6 fl (80-100); Mean Platelet Volume 9.2 fl (7.4-10.4); Monocytes Absolute Auto 1.5 K/mm3 (0.1-0.6); Monocytes Percent Auto 12.2 % (2.6-8.5); Neutrophils Absolute Auto 8.4 K/mm3 (1.3-6.7); Neutrophils Percent Auto 70.4 % (45.5-73.1); Platelet Count Result 558 k/mm3 (150-375); Red Blood Count 3.95 M/mm3 (4.2-5.4); Red Cell Distribution Width 13.7 % (11.5-14.5); White Blood Count 11.9 K/mm3 (4.5-10.0)
[2022-11-12] MEDS: HEPARIN SODIUM 5,000 UNITS/ML VIAL 3500 UNITS IV PUSH (04:35)
[2022-11-12] MEDS: HEPARIN SOD/D5W 100 UNITS/ML 25,000 UNITS/250 ML BAG 19 UNITS IV CONT ×3 (05:23→18:51)
[2022-11-12] MEDS: LEVOTHYROXINE SODIUM 50 MCG TABLET PO (05:33)
[2022-11-12] MEDS: CENTRAL LINE FLUSH 10 ML IV PUSH ×2 (05:36→14:40)
[2022-11-12 06:30] LABS: Alanine Aminotransferase 70 U/L (6-35); Albumin Level 3.1 g/dL (3.5-5.1); Alkaline Phosphatase 92 U/L (38-126); Anion Gap 4 mmol/L (8-16); Aspartate Amino Transferase 40 U/L (14-36); Bilirubin,Total 0.6 mg/dL (0.2-1.3); Blood Urea Nitrogen 14 mg/dL (7-17); Calcium 8.9 mg/dL (8.4-10.2); Carbon Dioxide 33 mmol/L (22-30); Chloride 100 mmol/L (98-107); Estimated CRCL calculation 92 ml/min; Estimated Glomerular Filt Rate > 60; Glucose 95 mg/dL (65-110); Potassium 3.3 mmol/L (3.4-5.0); Sodium 137 mmol/L (137-145)
[2022-11-12] MEDS: METOPROLOL TARTRATE 25 MG TABLET PO ×3 (08:44→18:09)
[2022-11-12] MEDS: MULTIVITAMINS THERAPEUTIC TAB (*BKC) 1 TABLET PO (08:44)
[2022-11-12] MEDS: PANTOPRAZOLE SODIUM IV 40 MG VIAL IV PUSH ×2 (08:44→20:48)
[2022-11-12] MEDS: AMIODARONE HCL 200 MG TABLET 400 MG PO ×2 (08:44→16:32)
--- NOTE | 2022-11-12 09:17 | PM.PNCARD ---
Progress Note: A&P Assessment and Plan (1) Atrial flutter with rapid ventricular response: Code(s): I48.92 - Unspecified atrial flutter Status: Acute Assessment and Plan: Heart rate much better controlled but remains in atrial flutter with variable AV block. Rate control strategy for now. Continue oral amiodarone 400 mg twice daily and increase metoprolol tartrate 25 mg QID as her heart rate generally remains elevated around 120bpm. Uptitration as tolerated and heart rate permits. Patient is currently asymptomatic in this regard. Although we would prefer to initiate Eliquis and/or Xarelto will start with the heparin infusion to reduce embolic stroke risk. Will repeat 2D echocardiogram today to assess pericardium. (2) Pericardial effusion: Code(s): I31.39 - Other pericardial effusion (noninflammatory) Status: Acute Assessment and Plan: Large circumferential pericardial effusion without clear tamponade physiology. Slight right atrial free wall invagination suggestive of increased intrapericardial pressures. If patient becomes hypotensive aggressive IV fluid resuscitation advised. While we need to control heart rhythm avoidance of over suppression of heart rate response is important. There is no indication for urgent pericardiocentesis less patient becomes hemodynamically unstable. Initiate systemic anticoagulation with heparin infusion initially to observe tolerance. Repeat echocardiogram today to assess pericardial effusion size. (3) Pericarditis: Qualifiers: Chronicity: acute Pericarditis type: idiopathic Qualified Code(s): I30.0 - Acute nonspecific idiopathic pericarditis Code(s): I31.9 - Disease of pericardium, unspecified Status: Acute Assessment and Plan: Chest pain has completely resolved with Toradol and colchicine 0.6 mg twice daily. (4) Pulmonary edema: Qualifiers: Chronicity: acute Qualified Code(s): J81.0 - Acute pulmonary edema Code(s): J81.1 - Chronic pulmonary edema Status: Acute Assessment and Plan: Will continue to cautiously diurese with IV Lasix 20 mg, will give another dose today. Improving in this regard, no shortness of breath today. Continue to monitor BMP. Will attempt to reduce O2 dependence need to be cautious to avoid intravascular volume depletion She has preserved LV systolic function by echocardiogram. Monitor electrolytes and replete as appropriate. (5) Sepsis: Qualifiers: Sepsis acute organ dysfunction status: with acute organ dysfunction Sepsis type: sepsis due to unspecified organism Severe sepsis acute organ dysfunction type: unspecified Severe sepsis shock status: unspecified Qualified Code(s): A41.9 - Sepsis, unspecified organism; R65.20 - Severe sepsis without septic shock Code(s): A41.9 - Sepsis, unspecified organism Status: Acute Assessment and Plan: She has met clinical criteria for sepsis since admission. Defer to primary service for management. She remains on broad-spectrum antibiotics. 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 Defer to primary service. Subjective Date/time seen: 11/12/22 09:17 Interval history: Follow-up for pericarditis, pericardial effusion, atrial flutter with RVR, hypoxic respiratory failure/chf Patient continues to feel much better even today. Denies any chest pain even with deep breathing. She states she felt much better after receiving IV Lasix yesterday and denies shortness of breath this time. However, she remains on 7 L nasal cannula but is saturating better overall. She feels less tight her abdomen due to swelling. Her heart rate is much better controlled currently the 80s to 90s in atrial flutt
[2022-11-12] MEDS: ONDANSETRON INJ 4 MG/2 ML VIAL IV PUSH (10:32)
--- NOTE | 2022-11-12 10:52 | PC.NURSE ---
Pt is c/o burning and redness in throat and tongue this nurse assessed inside of her mouth and found redness and patchy white spots this nurse made Dr Arellano aware and she will place order for nystatin.
[2022-11-12 11:17] LABS: Partial Thromboplastin Time 72.6 SECONDS (22.3-36.8)
[2022-11-12] MEDS: COLCHICINE 0.6 MG TABLET PO ×2 (11:39→20:49)
[2022-11-12] MEDS: LORazepam (*CRX) 1 MG TABLET PO ×2 (12:03→20:59)
[2022-11-12] MEDS: HYDROcodone/acetaminophen (*CRX) 7.5-325 MG TABLET 1 TAB PO (12:07)
--- NOTE | 2022-11-12 13:12 | PCPTNOTE ---
Attempted PT evaluation, Pt reports Dr. Floyd told her not to transfer out of bed this date. I confirmed with Dr. Floyd to hold pt from therapy this date. Will follow.
--- NOTE | 2022-11-12 14:16 | PCOTNOTE ---
Attempted OT evaluation, per medical chart review pt is on hold for therapy this date and stated by Dr. Floyd. Will follow.
[2022-11-12] MEDS: ALTEPLASE 2 MG VIAL (CATHFLO) IV PUSH (16:31)
[2022-11-12] MEDS: AZITHROMYCIN 250 MG TABLET 500 MG PO (16:32)
[2022-11-12 17:47] LABS: Partial Thromboplastin Time 84.6 SECONDS (22.3-36.8)
--- NOTE | 2022-11-12 17:52 | PM.IMPN ---
Progress Note: A&P Assessment and Plan (1) Pericardial effusion: Code(s): I31.39 - Other pericardial effusion (noninflammatory) Status: Acute Assessment and Plan: Appreciate cardiology consultation, started on Toradol--decreased from q6h to q12h 11/11, colchicine, as well as amiodarone for atrial flutter Cont heparin gtt for now, defer further management to Cardiology Symptoms significantly improved 11/12: repeat echo soon per cardio to assess response (2) Atrial flutter with rapid ventricular response: Code(s): I48.92 - Unspecified atrial flutter Status: Acute Assessment and Plan: Appreciate cardiology consultation, may need cardioversion, discussed extensively with patient 11/11: rate controlled on amio, still in flutter 11/12: amio cont, HR 120s (3) Sepsis: Qualifiers: Sepsis acute organ dysfunction status: with acute organ dysfunction Sepsis type: sepsis due to unspecified organism Severe sepsis acute organ dysfunction type: unspecified Severe sepsis shock status: unspecified Qualified Code(s): A41.9 - Sepsis, unspecified organism; R65.20 - Severe sepsis without septic shock Code(s): A41.9 - Sepsis, unspecified organism Status: Acute Assessment and Plan: Started on Zosyn 11/07 Continue antibiotics for now, unsure if there is actually an infectious etiology PCT 0.2, CRP 21.9 11/12: day 6 of abx, unlikely underlying etiology, would d/c abx tomorrow after 7 day course, blood cx NGTD (4) Elevated LFTs: Code(s): R79.89 - Other specified abnormal findings of blood chemistry Status: Acute Assessment and Plan: Improving, monitor Suspect 2/2 hypoperfusion injury from afib rvr (5) Upper abdominal pain: Code(s): R10.10 - Upper abdominal pain, unspecified Status: Acute Assessment and Plan: Likely secondary to pericardial effusion versus possible gastritis May need EGD once stabilized, but more likely this was 2/2 pericarditis (6) Autoimmune disease, not elsewhere classified: Code(s): M35.9 - Systemic involvement of connective tissue, unspecified Status: Acute Assessment and Plan: Stable, monitor (7) Cholecystitis: Code(s): K81.9 - Cholecystitis, unspecified Status: Acute Assessment and Plan: Do not suspect acute cholecystitis Appreciate surgery and GI consultations (8) Hyperkalemia: Code(s): E87.5 - Hyperkalemia Status: Acute Assessment and Plan: Resolved Plan DVT prophylaxis with SCDs GI prophylaxis with PPI Code status full code Subjective Date/time seen: 11/12/22 17:52 Interval history: 71-year-old female with past medical history significant for arrhythmia, autoimmune disorder, hypothyroidism among other comorbidities is presenting with multiple medical complaints and currently being treated for pericardial effusion. No overnight events noted. No chest pain or shortness of breath. No nausea, vomiting or diarrhea. No fevers or chills. Feels much better today. Review of Systems Review of Systems: 12 point review of systems was assessed and was negative except as noted in the HPI Exam Narrative: General: No acute distress, alert and oriented per baseline HEENT: Atraumatic, normocephalic, mucous membranes moist CV: Irregularly irregular, S1, S2, no JVD Lungs: Diminished at bases, scattered crackles noted Abdomen: Soft, nontender, nondistended Extremities: Normal to inspection Skin: No rashes noted, no lesions or wounds seen Psych: Euthymic, less anxious Objective Data Vital Signs Vital Signs: Vital Signs - 24 hr 11/11/22 18:18 11/11/22 18:18 11/11/22 18:00 Temperature Pulse Rate 140 H 97 118 H Respiratory Rate Blood Pressure Pulse Oximetry Oxygen Delivery Oxygen Flow Rate 11/11/22 20:00 11/11/22 21:09 11/11/22 20:00 Temperature 97.4 F L Pulse Ra
[2022-11-13] VITALS (25 sets, daily range): BP systolic 115–140; BP diastolic 66–88; PULSE 81–144; RESP 20–22; TEMP 36.1–36.8; O2SAT 93–98
[2022-11-13] MEDS: PIPERACILLN/TAZ 3.375GM/NS50ML 3.375 GM/50 ML BAG IVPB ×5 (00:26→23:52)
[2022-11-13] MEDS: METOPROLOL TARTRATE 25 MG TABLET PO ×2 (00:29→05:35)
[2022-11-13] MEDS: CENTRAL LINE FLUSH 10 ML IV PUSH ×4 (00:31→23:31)
[2022-11-13] MEDS: LEVOTHYROXINE SODIUM 50 MCG TABLET PO (05:36)
[2022-11-13 08:47] LABS: Basophils Absolute Auto 0.1 K/mm3 (0.0-0.1); Basophils Percent Auto 0.5 % (0.2-1.2); Eosinophils Absolute Auto 0.6 K/mm3 (0-0.3); Eosinophils Percent Auto 4.9 % (0-4.4); Hematocrit 34.6 % (37.0-47.0); Hemoglobin 10.8 g/dL (12.0-15.0); Immature Granulocyte Absolute 0.19 K/mm3 (0.00-0.031); Immature Granulocyte Percent A 1.7 % (0-0.5); Lymphocytes Percent Auto 13.1 % (18.3-44.2); Mean Corpuscular HGB Conc 31.2 g/dl (32-36); Mean Corpuscular Volume 89.6 fl (80-100); Mean Platelet Volume 9.6 fl (7.4-10.4); Monocytes Absolute Auto 1.2 K/mm3 (0.1-0.6); Monocytes Percent Auto 10.4 % (2.6-8.5); Neutrophils Absolute Auto 7.9 K/mm3 (1.3-6.7); Neutrophils Percent Auto 69.4 % (45.5-73.1); Platelet Count Result 633 k/mm3 (150-375); Red Blood Count 3.86 M/mm3 (4.2-5.4); Red Cell Distribution Width 13.8 % (11.5-14.5); White Blood Count 11.4 K/mm3 (4.5-10.0)
[2022-11-13 09:06] LABS: Alanine Aminotransferase 52 U/L (6-35); Albumin Level 3.1 g/dL (3.5-5.1); Alkaline Phosphatase 84 U/L (38-126); Anion Gap 5 mmol/L (8-16); Aspartate Amino Transferase 33 U/L (14-36); Bilirubin,Total 0.5 mg/dL (0.2-1.3); Blood Urea Nitrogen 8 mg/dL (7-17); Carbon Dioxide 33 mmol/L (22-30); Chloride 100 mmol/L (98-107); Estimated CRCL calculation 107 ml/min; Estimated Glomerular Filt Rate > 60; Glucose 86 mg/dL (65-110); Potassium 3.2 mmol/L (3.4-5.0); Sodium 138 mmol/L (137-145)
[2022-11-13] MEDS: HEPARIN SOD/D5W 100 UNITS/ML 25,000 UNITS/250 ML BAG 19 UNITS IV CONT (09:33)
[2022-11-13] MEDS: COLCHICINE 0.6 MG TABLET PO ×2 (10:28→21:32)
[2022-11-13] MEDS: PANTOPRAZOLE SODIUM IV 40 MG VIAL IV PUSH ×2 (10:28→23:51)
[2022-11-13] MEDS: AMIODARONE HCL 200 MG TABLET 400 MG PO ×2 (10:28→16:01)
[2022-11-13] MEDS: MULTIVITAMINS THERAPEUTIC TAB (*BKC) 1 TABLET PO (10:29)
[2022-11-13 10:30] LABS: Partial Thromboplastin Time 64.6 SECONDS (22.3-36.8)
[2022-11-13] MEDS: POTASSIUM CHLORIDE 20 MEQ ER TABLET 40 MEQ PO (10:32)
[2022-11-13] MEDS: ONDANSETRON INJ 4 MG/2 ML VIAL IV PUSH ×3 (10:37→23:30)
[2022-11-13] MEDS: HEPARIN SODIUM 5,000 UNITS/ML VIAL 3500 UNITS IV PUSH (10:44)
--- NOTE | 2022-11-13 11:54 | PM.IMPN ---
Progress Note: A&P Assessment and Plan (1) Pericardial effusion: Code(s): I31.39 - Other pericardial effusion (noninflammatory) Status: Acute Assessment and Plan: Chest x-ray showed normal cardiac silhouette on 10/30/2022. CT of the abdomen on 11/07/2022 showing moderate pericardial effusion. Echocardiogram 11/08/2022 showing moderate-large circumferential pericardial effusion. EKG on admission showed ST elevation in diffuse leads consistent with pericarditis. Cardiology consulted and appreciate their input. Started on Toradol but now off. Patient remains on colchicine scheduled. Continue current treatment plan. Wean oxygen as tolerated. repeat echocardiogram pending. (2) Atrial flutter with rapid ventricular response: Code(s): I48.92 - Unspecified atrial flutter Status: Acute Assessment and Plan: Patient had normal sinus rhythm on admission. Patient developed atrial flutter since admission. Probably related to the pericarditis. She has been started on heparin drip. She has been loaded with amiodarone. Metoprolol has been added for rate control. Continue to advance medications to control rate. Appreciate Cardiology input. (3) Sepsis: Qualifiers: Sepsis type: sepsis due to unspecified organism Sepsis acute organ dysfunction status: with acute organ dysfunction Severe sepsis acute organ dysfunction type: unspecified Severe sepsis shock status: unspecified Qualified Code(s): A41.9 - Sepsis, unspecified organism; R65.20 - Severe sepsis without septic shock Code(s): A41.9 - Sepsis, unspecified organism Status: Acute Assessment and Plan: Patient felt to have sepsis on admission with tachycardia, leukocytosis and fever. Also with lactic acidosis. Chest x-ray was not consistent with pneumonia. Urine culture was negative. Blood cultures are no growth to date. Concern for cholecystitis but HIDA scan was normal. Started on Zosyn 11/07. Azithromycin also added. Appreciate surgery and GI consultations Continue current antibiotics until and dates listed. (4) Elevated LFTs: Code(s): R79.89 - Other specified abnormal findings of blood chemistry Status: Acute Assessment and Plan: Patient with elevated liver enzymes suspected due to hypoperfusion injury. Levels are improving. (5) Upper abdominal pain: Code(s): R10.10 - Upper abdominal pain, unspecified Status: Acute Assessment and Plan: Likely secondary to pericardial effusion versus possible gastritis May need EGD once stabilized, but more likely this was 2/2 pericarditis (6) Autoimmune disease, not elsewhere classified: Code(s): M35.9 - Systemic involvement of connective tissue, unspecified Status: Acute Assessment and Plan: Stable, monitor (7) Cholecystitis: Code(s): K81.9 - Cholecystitis, unspecified Status: Acute Assessment and Plan: Do not suspect acute cholecystitis Appreciate surgery and GI consultations (8) Hyperkalemia: Code(s): E87.5 - Hyperkalemia Status: Acute Assessment and Plan: Resolved Plan DVT prophylaxis with Heparin GI prophylaxis with PPI Code status full code Subjective Date/time seen: 11/13/22 11:54 Interval history: 71-year-old female with past medical history significant for arrhythmia, autoimmune disorder, hypothyroidism among other comorbidities is presenting with multiple medical complaints and currently being treated for pericardial effusion. Patient admitted on 11/07/2022 Assuming care. Chart reviewed. Patient feels better. She does not wear oxygen at home. They have been able to wean the oxygen today. She denies chest pain or shortness of breath. Her cough is productive yellow sputum. She does have postnasal drainage noted. She has not been out of bed. She is having some loose stools from the colchicine. Exam Narrative: AF
--- NOTE | 2022-11-13 12:22 | PM.PNCARD ---
Progress Note: A&P Assessment and Plan (1) Atrial flutter with rapid ventricular response: Code(s): I48.92 - Unspecified atrial flutter Status: Acute Assessment and Plan: Heart rate marginally controlled tachycardic at times but remains in atrial flutter with variable AV block. Rate control strategy for now with plans for rhythm control with EPHRAIM guided cardioversion prior to discharge if respiratory status stable. If, however, heart rate well controlled patient asymptomatic cardioversion could be deferred as an outpatient. Need to monitor closely in this regard. -for now, continue oral amiodarone 400 mg twice daily. -increase metoprolol tartrate to 50 mg 3 times daily additional heart rate control of atrial flutter. -discontinue heparin infusion around 5:00 p.m. today and begin Eliquis 5 mg twice daily at 9:00 p.m. this evening. Discussed with nursing plan of care. -discussed risk versus benefit of EPHRAIM guided cardioversion with regards respiratory status. Although this is improving she remains on 3 L nasal cannula and would be high risk for sedation which would be recommended in conjunction with Anesthesiology or with Propofol. (2) Pericardial effusion: Code(s): I31.39 - Other pericardial effusion (noninflammatory) Status: Acute Assessment and Plan: By echo 11/08/2022, large circumferential pericardial effusion without clear tamponade physiology. Remarkably, repeat echocardiogram 11/12/2022 pericardial effusion is now trivial to small which is a fantastic response to therapy. While this is difficult to explain very happy to see this degree of resolution so quickly. -will discontinue heparin infusion and plan for oral anticoagulation with Eliquis as above. (3) Pericarditis: Qualifiers: Pericarditis type: idiopathic Chronicity: acute Qualified Code(s): I30.0 - Acute nonspecific idiopathic pericarditis Code(s): I31.9 - Disease of pericardium, unspecified Status: Acute Assessment and Plan: Chest pain has completely resolved with Toradol and colchicine 0.6 mg twice daily. She is very pleased with how much better she is feeling. Given initiation of systemic anticoagulation agree with reduction and Toradol however plan to discontinue and observe tolerance. Continue colchicine 0.6 mg twice daily for 1 month. As an outpatient plan repeat echocardiogram 1-2 months after discontinuation of colchicine. IV Toradol has been discontinued. (4) Pulmonary edema: Qualifiers: Chronicity: acute Qualified Code(s): J81.0 - Acute pulmonary edema Code(s): J81.1 - Chronic pulmonary edema Status: Acute Assessment and Plan: Resolving but she remains in respiratory failure on 3 L nasal cannula. Give additional Lasix 40 mg IV x1. Monitor renal function electrolytes and BP. Wean O2 as tolerated. (5) Sepsis: Qualifiers: Sepsis type: sepsis due to unspecified organism Sepsis acute organ dysfunction status: with acute organ dysfunction Severe sepsis acute organ dysfunction type: unspecified Severe sepsis shock status: unspecified Qualified Code(s): A41.9 - Sepsis, unspecified organism; R65.20 - Severe sepsis without septic shock Code(s): A41.9 - Sepsis, unspecified organism Status: Acute Assessment and Plan: She has met clinical criteria for sepsis since admission. Defer to primary service for management. She remains on broad-spectrum antibiotics. 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 Defer to primary service. Subjective Date/time seen: Date of service: 11/13/22 12:22 Interval history: Follow-up for pericarditis, pericardial effusion, atrial flutter with RVR, hypoxic respiratory failure/chf Pat
[2022-11-13] MEDS: FUROSEMIDE INJ 40 MG/4 ML VIAL IV PUSH (12:53)
[2022-11-13] MEDS: METOPROLOL TARTRATE 50 MG TAB PO ×2 (12:54→23:51)
--- NOTE | 2022-11-13 13:25 | PCPTNOTE ---
Attempted PT evaluation, pt refused stating she needed to have a bowel movement prior to mobilizing out of bed. RN aware. Will follow.
[2022-11-13] MEDS: AZITHROMYCIN 250 MG TABLET 500 MG PO (15:54)
[2022-11-13] MEDS: HYDROcodone/acetaminophen (*CRX) 7.5-325 MG TABLET 1 TAB PO (15:55)
[2022-11-13 17:38] LABS: Partial Thromboplastin Time 109.9 SECONDS (22.3-36.8)
[2022-11-13] MEDS: APIXABAN 5 MG TABLET PO (21:32)
[2022-11-13] MEDS: LORazepam (*CRX) 1 MG TABLET PO (21:34)
[2022-11-14] VITALS (19 sets, daily range): BP systolic 115–135; BP diastolic 58–71; PULSE 70–119; RESP 12–24; TEMP 36.3–36.9; O2SAT 90–97
[2022-11-14] MEDS: LEVOTHYROXINE SODIUM 50 MCG TABLET PO (05:19)
[2022-11-14] MEDS: PIPERACILLN/TAZ 3.375GM/NS50ML 3.375 GM/50 ML BAG IVPB ×2 (05:19→12:34)
[2022-11-14] MEDS: CENTRAL LINE FLUSH 10 ML IV PUSH ×3 (05:19→20:39)
[2022-11-14] MEDS: METOPROLOL TARTRATE 50 MG TAB PO ×3 (05:19→20:38)
[2022-11-14] MEDS: HYDROcodone/acetaminophen (*CRX) 7.5-325 MG TABLET 1 TAB PO ×2 (05:20→18:37)
[2022-11-14] MEDS: AMIODARONE HCL 200 MG TABLET 400 MG PO ×2 (08:26→16:55)
[2022-11-14] MEDS: COLCHICINE 0.6 MG TABLET PO ×2 (08:26→20:38)
[2022-11-14] MEDS: PANTOPRAZOLE SODIUM IV 40 MG VIAL IV PUSH ×2 (08:26→20:38)
[2022-11-14] MEDS: APIXABAN 5 MG TABLET PO ×2 (08:26→20:38)
[2022-11-14] MEDS: MULTIVITAMINS THERAPEUTIC TAB (*BKC) 1 TABLET PO (08:26)
[2022-11-14 09:04] LABS: Basophils Absolute Auto 0.1 K/mm3 (0.0-0.1); Basophils Percent Auto 0.5 % (0.2-1.2); Eosinophils Absolute Auto 0.6 K/mm3 (0-0.3); Eosinophils Percent Auto 5.3 % (0-4.4); Hematocrit 38.8 % (37.0-47.0); Hemoglobin 12.1 g/dL (12.0-15.0); Immature Granulocyte Absolute 0.05 K/mm3 (0.00-0.031); Immature Granulocyte Percent A 0.5 % (0-0.5); Lymphocytes Absolute Auto 1.54 K/mm3 (0.9-3.2); Lymphocytes Percent Auto 14.4 % (18.3-44.2); Mean Corpuscular HGB Conc 31.2 g/dl (32-36); Mean Corpuscular Hemoglobin 28.1 pg (26-34); Mean Corpuscular Volume 90.2 fl (80-100); Monocytes Absolute Auto 0.9 K/mm3 (0.1-0.6); Monocytes Percent Auto 8.3 % (2.6-8.5); Neutrophils Absolute Auto 7.6 K/mm3 (1.3-6.7); Platelet Count Result 647 k/mm3 (150-375); Red Cell Distribution Width 13.7 % (11.5-14.5); White Blood Count 10.7 K/mm3 (4.5-10.0)
[2022-11-14 09:11] LABS: Alanine Aminotransferase 75 U/L (6-35); Albumin Level 3.5 g/dL (3.5-5.1); Alkaline Phosphatase 90 U/L (38-126); Anion Gap 5 mmol/L (8-16); Aspartate Amino Transferase 71 U/L (14-36); Bilirubin,Total 0.6 mg/dL (0.2-1.3); Blood Urea Nitrogen 10 mg/dL (7-17); Calcium 9.5 mg/dL (8.4-10.2); Carbon Dioxide 36 mmol/L (22-30); Chloride 98 mmol/L (98-107); Estimated CRCL calculation 91 ml/min; Estimated Glomerular Filt Rate > 60; Glucose 112 mg/dL (65-110); Magnesium 1.9 mg/dL (1.6-2.3); Potassium 4.1 mmol/L (3.4-5.0); Sodium 139 mmol/L (137-145)
--- NOTE | 2022-11-14 11:37 | PM.PNCARD ---
Progress Note: A&P Assessment and Plan (1) Atrial flutter with rapid ventricular response: Code(s): I48.92 - Unspecified atrial flutter Status: Acute Assessment and Plan: Heart rate controlled but remains in atrial flutter with variable AV block. Rate control strategy for now with plans for rhythm control with EPHRAIM guided cardioversion (need for EPHRAIM dependent upon timing in future). After discussion with the patient she states she is longer having fluttering in her chest and is comfortable with continuing current medical regimen and with pursue to cardioversion if she remains in atrial flutter as an outpatient when she has made further recovery. -continue amiodarone 400 mg twice daily for now. Reduce to 400 mg once daily prior to discharge. -simplify metoprolol tartrate to 75 mg twice daily beginning tomorrow morning. -continue Eliquis 5 mg twice daily. (2) Pericardial effusion: Code(s): I31.39 - Other pericardial effusion (noninflammatory) Status: Acute Assessment and Plan: By echo 11/08/2022, large circumferential pericardial effusion without clear tamponade physiology. Remarkably, repeat echocardiogram 11/12/2022 pericardial effusion is now trivial to small which is a fantastic response to therapy. While this is difficult to explain very happy to see this degree of resolution so quickly. -appears in part secondary to acute pericarditis given rapid response resolution with therapy colchicine and Toradol. Repeat echocardiogram as outpatient. (3) Pericarditis: Qualifiers: Pericarditis type: idiopathic Chronicity: acute Qualified Code(s): I30.0 - Acute nonspecific idiopathic pericarditis Code(s): I31.9 - Disease of pericardium, unspecified Status: Acute Assessment and Plan: Chest pain has completely resolved with Toradol and colchicine 0.6 mg twice daily. Toradol has been discontinued. She is having GI side effects with loose stools secondary to colchicine. We discussed the present cons in this regard and concerns with reduction colchicine and under treatment of her pericarditis. She states she cannot tolerate oral NSAIDs which limits our options in this regard. She states she can not tolerate the GI side effects for now. I would prefer she stay on 0.6 mg twice daily for as long she is able to tolerate, however, we must we can reduce to 0.6 mg daily and see how she responds clinically. Ideally, would recommend continuation of colchicine 0.6 mg twice daily for 1 month for treatment of acute pericarditis. As an outpatient plan repeat echocardiogram 1-2 months after discontinuation of colchicine. (4) Pulmonary edema: Qualifiers: Chronicity: acute Qualified Code(s): J81.0 - Acute pulmonary edema Code(s): J81.1 - Chronic pulmonary edema Status: Acute Assessment and Plan: Resolving but she remains in respiratory failure on 2 L nasal cannula. As we did yesterday, will give additional Lasix 40 mg IV x1. Monitor renal function, electrolytes and BP. Wean O2 as tolerated. She has tolerated diuresis well thus far. (5) Sepsis: Qualifiers: Sepsis type: sepsis due to unspecified organism Sepsis acute organ dysfunction status: with acute organ dysfunction Severe sepsis acute organ dysfunction type: unspecified Severe sepsis shock status: unspecified Qualified Code(s): A41.9 - Sepsis, unspecified organism; R65.20 - Severe sepsis without septic shock Code(s): A41.9 - Sepsis, unspecified organism Status: Acute Assessment and Plan: She has met clinical criteria for sepsis since admission. Defer to primary service for management. She remains on broad-spectrum antibiotics. (6) Autoimmune disease, not elsewhere classified: Code(s): M35.9 - Systemic involvement of connective tissue, unspecified Status: Acute Assessment and Plan: Etiology remains unclear although the report is a mosquito borne vector alo
[2022-11-14] MEDS: FUROSEMIDE INJ 40 MG/4 ML VIAL IV PUSH (12:35)
--- NOTE | 2022-11-14 15:47 | PM.IMPN ---
Progress Note: A&P Assessment and Plan (1) Pericardial effusion: Code(s): I31.39 - Other pericardial effusion (noninflammatory) Status: Acute Assessment and Plan: Chest x-ray showed normal cardiac silhouette on 10/30/2022. CT of the abdomen on 11/07/2022 showing moderate pericardial effusion. Echo 11/08/2022 showing moderate-large circumferential pericardial effusion. EKG on admission showed ST elevation in diffuse leads consistent with pericarditis. Cardiology consulted and appreciate their input. Started on Toradol but now off. Patient remains on colchicine scheduled. Repeat Echo now showing trivial to small pericardial effusion with fibrinous mat'l in the pericardial space. No tamponade Continue current treatment plan. Wean oxygen as tolerated. w (2) Pericarditis: Qualifiers: Pericarditis type: idiopathic Chronicity: acute Qualified Code(s): I30.0 - Acute nonspecific idiopathic pericarditis Code(s): I31.9 - Disease of pericardium, unspecified Status: Acute Assessment and Plan: As above (3) Atrial flutter with rapid ventricular response: Code(s): I48.92 - Unspecified atrial flutter Status: Acute Assessment and Plan: Patient had normal sinus rhythm on admission. Patient developed atrial flutter since admission. Probably related to the pericarditis. She was started on heparin drip. She was loaded with amiodarone. Metoprolol was added for rate control. Heparin changed to Eliquis. Continue to advance medications to control rate. Appreciate Cardiology input. (4) Sepsis: Qualifiers: Sepsis acute organ dysfunction status: with acute organ dysfunction Sepsis type: sepsis due to unspecified organism Severe sepsis acute organ dysfunction type: unspecified Severe sepsis shock status: unspecified Qualified Code(s): A41.9 - Sepsis, unspecified organism; R65.20 - Severe sepsis without septic shock Code(s): A41.9 - Sepsis, unspecified organism Status: Acute Assessment and Plan: Patient felt to have sepsis on admission with tachycardia, leukocytosis and fever. Also with lactic acidosis. Chest x-ray was not consistent with pneumonia. Urine culture was negative. Blood cultures are no growth to date. Concern for cholecystitis but HIDA scan was normal. Started on Zosyn 11/07. Azithromycin also added. Appreciate surgery and GI consultations Completed abx 11/14 (5) Elevated LFTs: Code(s): R79.89 - Other specified abnormal findings of blood chemistry Status: Acute Assessment and Plan: Patient with elevated liver enzymes suspected due to hypoperfusion injury. Levels higher today for unclear reasons. Follow (6) Upper abdominal pain: Code(s): R10.10 - Upper abdominal pain, unspecified Status: Acute Assessment and Plan: Likely secondary to pericardial effusion versus possible gastritis May need EGD once stabilized, but more likely this was 2/2 pericarditis (7) Autoimmune disease, not elsewhere classified: Code(s): M35.9 - Systemic involvement of connective tissue, unspecified Status: Acute Assessment and Plan: Stable, monitor (8) Cholecystitis: Code(s): K81.9 - Cholecystitis, unspecified Status: Acute Assessment and Plan: Do not suspect acute cholecystitis Appreciate surgery and GI consultations (9) Hyperkalemia: Code(s): E87.5 - Hyperkalemia Status: Acute Assessment and Plan: Resolved Plan DVT prophylaxis with Eliquis GI prophylaxis with PPI Code status full code Subjective Date/time seen: 11/14/22 15:47 Interval history: 71-year-old female with past medical history significant for arrhythmia, autoimmune disorder, hypothyroidism among other comorbidities is presenting with multiple medical complaints and currently being treated for pericardial effusion. Patient admitted on 11/07/2022
[2022-11-14] MEDS: LORazepam (*CRX) 1 MG TABLET PO (18:37)
[2022-11-15] VITALS (16 sets, daily range): BP systolic 116–135; BP diastolic 68–88; PULSE 77–112; RESP 16–20; TEMP 36.3–36.9; O2SAT 92–97
[2022-11-15 04:39] LABS: Basophils Absolute Auto 0.1 K/mm3 (0.0-0.1); Basophils Percent Auto 0.7 % (0.2-1.2); Eosinophils Absolute Auto 0.5 K/mm3 (0-0.3); Eosinophils Percent Auto 5.8 % (0-4.4); Hematocrit 39.2 % (37.0-47.0); Hemoglobin 12.5 g/dL (12.0-15.0); Immature Granulocyte Percent A 1.1 % (0-0.5); Lymphocytes Absolute Auto 1.55 K/mm3 (0.9-3.2); Lymphocytes Percent Auto 16.5 % (18.3-44.2); Mean Corpuscular HGB Conc 31.9 g/dl (32-36); Mean Corpuscular Volume 87.9 fl (80-100); Mean Platelet Volume 8.9 fl (7.4-10.4); Monocytes Absolute Auto 0.9 K/mm3 (0.1-0.6); Monocytes Percent Auto 9.7 % (2.6-8.5); Neutrophils Absolute Auto 6.2 K/mm3 (1.3-6.7); Neutrophils Percent Auto 66.2 % (45.5-73.1); Platelet Count Result 677 k/mm3 (150-375); Red Blood Count 4.46 M/mm3 (4.2-5.4); Red Cell Distribution Width 13.3 % (11.5-14.5); White Blood Count 9.4 K/mm3 (4.5-10.0)
[2022-11-15 04:58] LABS: Alanine Aminotransferase 95 U/L (6-35); Albumin Level 3.3 g/dL (3.5-5.1); Alkaline Phosphatase 85 U/L (38-126); Anion Gap 4 mmol/L (8-16); Aspartate Amino Transferase 96 U/L (14-36); Bilirubin,Total 0.5 mg/dL (0.2-1.3); Blood Urea Nitrogen 11 mg/dL (7-17); Calcium 9.5 mg/dL (8.4-10.2); Carbon Dioxide 37 mmol/L (22-30); Chloride 96 mmol/L (98-107); Estimated CRCL calculation 91 ml/min; Estimated Glomerular Filt Rate > 60; Glucose 96 mg/dL (65-110); Potassium 3.3 mmol/L (3.4-5.0); Sodium 137 mmol/L (137-145)
[2022-11-15] MEDS: LEVOTHYROXINE SODIUM 50 MCG TABLET PO (06:12)
[2022-11-15] MEDS: METOPROLOL TARTRATE 50 MG TAB PO ×2 (06:12→13:10)
[2022-11-15] MEDS: CENTRAL LINE FLUSH 10 ML IV PUSH ×2 (06:13→13:11)
[2022-11-15] MEDS: APIXABAN 5 MG TABLET PO (08:22)
[2022-11-15] MEDS: PANTOPRAZOLE SODIUM IV 40 MG VIAL IV PUSH (08:23)
[2022-11-15] MEDS: MULTIVITAMINS THERAPEUTIC TAB (*BKC) 1 TABLET PO (08:23)
[2022-11-15] MEDS: AMIODARONE HCL 200 MG TABLET 400 MG PO (08:23)
[2022-11-15] MEDS: COLCHICINE 0.6 MG TABLET PO (08:23)
[2022-11-15] MEDS: ONDANSETRON INJ 4 MG/2 ML VIAL IV PUSH (09:40)
[2022-11-15 10:46] LABS: Magnesium 1.8 mg/dL (1.6-2.3)
[2022-11-15] MEDS: POTASSIUM CHLORIDE 20 MEQ ER TABLET 40 MEQ PO (11:06)
--- NOTE | 2022-11-15 11:50 | PCNWS ---
Weekly nutritional screen. Patient is tolerating current Low Fat diet with adequate intake, 75% meals. No weight loss reported. No nutritional needs at this time.
--- NOTE | 2022-11-15 12:45 | PM.DS ---
DS: Admitting Diagnosis Discharge Date 11/15/22 Admitting Diagnosis Nausea DS: Discharge Diagnosis Discharge Diagnosis (1) Pericardial effusion: Code(s): I31.39 - Other pericardial effusion (noninflammatory) Status: Acute (2) Pericarditis: Qualifiers: Pericarditis type: idiopathic Chronicity: acute Qualified Code(s): I30.0 - Acute nonspecific idiopathic pericarditis Code(s): I31.9 - Disease of pericardium, unspecified Status: Acute (3) Atrial flutter with rapid ventricular response: Code(s): I48.92 - Unspecified atrial flutter Status: Acute (4) Sepsis: Qualifiers: Sepsis type: sepsis due to unspecified organism Sepsis acute organ dysfunction status: with acute organ dysfunction Severe sepsis acute organ dysfunction type: unspecified Severe sepsis shock status: unspecified Qualified Code(s): A41.9 - Sepsis, unspecified organism; R65.20 - Severe sepsis without septic shock Code(s): A41.9 - Sepsis, unspecified organism Status: Acute (5) Elevated LFTs: Code(s): R79.89 - Other specified abnormal findings of blood chemistry Status: Acute (6) Upper abdominal pain: Code(s): R10.10 - Upper abdominal pain, unspecified Status: Acute (7) Autoimmune disease, not elsewhere classified: Code(s): M35.9 - Systemic involvement of connective tissue, unspecified Status: Acute (8) Cholecystitis: Code(s): K81.9 - Cholecystitis, unspecified Status: Acute (9) Hyperkalemia: Code(s): E87.5 - Hyperkalemia Status: Acute DS: Summary Hospital Course Reason for hospitalization: 71-year-old female with past medical history significant for arrhythmia, autoimmune disorder, hypothyroidism among other comorbidities is presenting with multiple medical complaints and currently being treated for pericardial effusion.? Patient admitted on 11/07/2022. Please see H&P for details. Hospital Course: Chest x-ray showed normal cardiac silhouette on 10/30/2022.? Patients symptoms worsened and she presented to the ED for evaluation. CT of the abdomen on 11/07/2022 showing moderate pericardial effusion.? Echo 11/08/2022 showing moderate-large circumferential pericardial effusion.? EKG on admission showed ST elevation in diffuse leads consistent with pericarditis.? Cardiology consulted and appreciate their input. She was started on Toradol but weaned off.? Patient also started on scheduled colchicine and remains on this. Repeat Echo now showing trivial to small pericardial effusion with fibrinous mat'l in the pericardial space. No tamponade. She was also treated with intermittent doses of Lasix with good response. She was able to be weaned off O2. Patient had normal sinus rhythm on admission.? Patient developed atrial flutter since admission.? Probably related to the pericarditis.? She was started on heparin drip.? She was loaded with amiodarone.? Metoprolol was added for rate control. Heart reate became better controlled. Heparin changed to Eliquis. Patient initially felt to have sepsis on admission with tachycardia, leukocytosis and fever.? Also with lactic acidosis.? Chest x-ray was not consistent with pneumonia.? Urine culture was negative.? Blood cultures are no growth to date.? Concern for cholecystitis but HIDA scan was normal.? Started on Zosyn 11/07 and Azithromycin added. No clear etiology but felt related to pericarditis. She completed a course of abx. Patient with elevated liver enzymes. Levels were up and down. She also had upper abdominal pain. Abd US showing normal liver echogenicity. Likely secondary to hypoperfusion injury and/or viral etiology. Will plan on repeating after discharge. Patient did well. She worked with therapy. She normally walks crutches because of chronic knee pain. She overall did well and was able to be discharged to rehab facility on 11/15/22 Status at Discharge Cognitive/behavioral status at discha
--- NOTE | 2022-11-15 13:00 | PCOTNOTE ---
Patient is planned to be discharged this date. Patient declined performing OT services this time. Awaiting family to pick her up for transport.
[2022-11-15] MEDS: LORazepam (*CRX) 1 MG TABLET PO (13:10)
[2022-11-15] MEDS: HYDROcodone/acetaminophen (*CRX) 7.5-325 MG TABLET 1 TAB PO (13:10)
[2022-11-15 14:17] LABS: SARS-CoV-2 RNA PCR Negative (Negative)
--- NOTE | 2022-11-19 07:18 | PC.NURSE ---
[place]- antibody not detected. Dr. Paulino aware of findings.
== END 2022-11-15 16:34 | DRG 872 ==
LOC: ANHED 10:27 → ANH3MEDSUR 14:25 → ANHIMU 11-09 10:26
PROVIDERS: Internal Medicine Cardiovascular Disease; Nurse Practitioner; Nurse Practitioner Family; Admitting Provider Student in an Organized Health Care Education/Training Program; Emergency Provider Emergency Medicine; PCP Family Medicine; Visit Provider Internal Medicine
DX: A41.9 Sepsis, unspecified organism (principal); I30.0 Acute nonspecific idiopathic pericarditis; I48.92 Unspecified atrial flutter; Z68.41 Body mass index [BMI] 40.0-44.9, adult; J81.1 Chronic pulmonary edema; I31.39 Other pericardial effusion (noninflammatory); E87.5 Hyperkalemia; E03.9 Hypothyroidism, unspecified; Z20.822 Contact with and (suspected) exposure to COVID-19; M19.90 Unspecified osteoarthritis, unspecified site; K21.9 Gastro-esophageal reflux disease without esophagitis; K58.9 Irritable bowel syndrome, unspecified; M17.10 Unilateral primary osteoarthritis, unspecified knee; M06.00 Rheumatoid arthritis without rheumatoid factor, unspecified site; E78.2 Mixed hyperlipidemia; T50.4X5A Adverse effect of drugs affecting uric acid metabolism, initial encounter; D89.89 Other specified disorders involving the immune mechanism, not elsewhere classified; R00.0 Tachycardia, unspecified; F41.9 Anxiety disorder, unspecified; I49.9 Cardiac arrhythmia, unspecified; E66.9 Obesity, unspecified; E78.5 Hyperlipidemia, unspecified; K29.70 Gastritis, unspecified, without bleeding
CPT/HCPCS: 36415; 36569; 71045; 71046; 74176; 76705; 78226; 80048; 80053; 81001; 83605; 83735; 83880; 84145; 84443; 84484; 85025; 85610; 85652; 85730; 86140; 86658; 87040; 87086; 87635; 93005; 93306; 93308; 96361; 96365; 96374; 96375; 97110; 97161; 97165; 97530; 99285; A9270; A9537; C1751; C9113; G0378; J0282; J1644; J1885; J1940; J2270; J2405; J2543; J2997; J7030

== ENCOUNTER 2022-12-02 00:21 | Day surgery (SDC) | payer MEDICARE, SELFPAY ==
[2022-11-29 15:43] VITALS: BMI 41.4
--- NOTE | 2022-12-02 09:30 | ECG_ITS ---
Measurements Intervals [place] Rate: 120 P: [place]: 0 QRS: -17 QRSD: 78 T: 212 QT: 368 QTc: 521 Interpretive Statements ATRIAL FLUTTER/TACHYCARDIA WITH RAPID VENTRICULAR RESPONSE ST DEVIATION AND MODERATE T-WAVE ABNORMALITY, CONSIDER LATERAL ISCHEMIA [-0.1+ mV T WAVE IN I/aVL/V5/V6] ST DEVIATION AND MODERATE T-WAVE ABNORMALITY, CONSIDER INFERIOR ISCHEMIA [-0.1+ mV T WAVE IN II/aVF] ABNORMAL ECG COMPARED TO ECG 11/11/2022 09:46:37 NO SIGNIFICANT CHANGES Electronically Signed On 12-02-2022 17:01:07 CDT by Joselito Benites M.D.
[2022-12-02 09:59] VITALS: BP 135/94; PULSE 120; RESP 20; TEMP 36.5; O2SAT 97; BMI 41.4
[2022-12-02 10:48] LABS: Anion Gap 5 mmol/L (8-16); Blood Urea Nitrogen 13 mg/dL (7-17); Calcium 9.5 mg/dL (8.4-10.2); Carbon Dioxide 29 mmol/L (22-30); Chloride 104 mmol/L (98-107); Estimated CRCL calculation 88 ml/min; Estimated Glomerular Filt Rate > 60; Glucose 93 mg/dL (65-110); Magnesium 2.2 mg/dL (1.6-2.3); Potassium 4.3 mmol/L (3.4-5.0); Sodium 138 mmol/L (137-145)
--- NOTE | 2022-12-02 10:51 | WPDANESEPP ---
Anes - Eval Pre Procedure Procedure: Operation Date: 12/02/22 11:00 Proposed Procedures p Trans Esophageal Echo - Joselito Benites MD s Electrical Cardioversion - Joselito Benites MD Date/Time: 12/02/22 10:51 Surgeon: Henna Preop Diagnosis: Afib/Flutter Pre Op Diagnosis: A Fib Patient Data Age: 71 Gender: F Height: 1.73 m Weight: 123.6 kg Last Vital Signs Temp 97.7 F 12/02/22 09:59 Pulse 120 H 12/02/22 09:59 Resp 20 12/02/22 09:59 BP 135/94 H 12/02/22 09:59 Pulse Ox 97 12/02/22 09:59 O2 Del Method Room Air 12/02/22 09:59 Allergies Allergy/AdvReac Type Severity Reaction Status Date / Time ciprofloxacin Allergy Intermediate REDNESS Verified 12/02/22 10:23 Iodinated Contrast Media AdvReac Intermediate Shakiness Verified 12/02/22 10:23 Home Medications Medication Instructions Recorded Confirmed Type levothyroxine 50 mcg tablet 50 mcg PO DAILY #90 tabs 05/16/22 12/02/22 Rx cholecalciferol (vitamin D3) 1,250 50,000 unit PO WEEKLY #12 tabs 09/12/22 12/02/22 Rx mcg (50,000 unit) tablet esomeprazole magnesium 40 mg 40 mg PO DAILY #30 caps 10/30/22 12/02/22 Rx capsule,delayed release (Nexium) amiodarone 200 mg tablet ([place]one) 400 mg PO DAILY #60 tabs 11/15/22 12/02/22 Rx hydrocodone 7.5 mg-acetaminophen 1 tablet PO Q8H PRN pain #42 tabs 11/16/22 11/29/22 Rx 325 mg tablet lorazepam 1 mg tablet 1 mg PO BID PRN Anxiety #60 tabs 11/20/22 12/02/22 Rx mesalamine 1.2 gram tablet,delayed 2.4 g PO DAILY #60 tabs 11/27/22 11/29/22 Rx release apixaban 5 mg tablet (Eliquis) 5 mg PO BID 11/29/22 12/02/22 History furosemide 40 mg tablet 40 mg PO DAILY 11/29/22 12/02/22 History ibuprofen 200 mg capsule 200 mg PO BID 11/29/22 12/02/22 History metoprolol tartrate 100 mg tablet 100 mg PO BID 11/29/22 12/02/22 History multivitamin 1 tablet PO DAILY 11/29/22 12/02/22 History ondansetron 4 mg disintegrating 4 mg PO DAILY PRN Nausea And 11/29/22 11/29/22 History tablet Vomiting simethicone 125 mg capsule (Gas-X 125 mg PO DAILY PRN Gastric Reflux 11/29/22 11/29/22 History Extra Strength) Laboratory Tests 12/02/22 10:10 Sodium 138 mmol/L (137-145) Potassium 4.3 mmol/L (3.4-5.0) Chloride 104 mmol/L (98-107) Carbon Dioxide 29 mmol/L (22-30) Anion Gap 5 L mmol/L (8-16) BUN 13 mg/dL (7-17) Creatinine 0.70 mg/dL (0.7-1.0) Estim Creat Clear Calc 88 ml/min Estimated GFR > 60 (59 - ) Glucose 93 mg/dL (65-110) Calcium 9.5 mg/dL (8.4-10.2) Magnesium 2.2 mg/dL (1.6-2.3) ECG: ntervals? [place]? Rate: ? 83 ? P:? [place]: ? 0? QRS:? -6 QRSD: ? 89 ? T:? -70 QT: ? 355? QTc:? 418? Interpretive Statements ATRIAL FLUTTER/TACHYCARDIA DELAYED PRECORDIAL R/S TRANSITION BORDERLINE ST-T WAVE ABNORMALITY- ANTEROLAT/HIGH LAT LEADS ABNORMAL ECG COMPARED TO ECG 11/09/2022 09:16:33 HEART RATE HAS DECREASED Electronically Signed On 11-11-2022 10:27:22 CDT by Steven Caro D.O. Other studies: Echo: 1. Technically difficult study with limited views. ? 2. Left ventricular chamber dimension is normal. ? 3. Left ventricular systolic function is normal, estimated at 55-60%. ? 4. There is mildly increased left ventricular wall thickness. ? 5. Trivial to small pericardial effusion with fibrinous material within the pericardial space.? This is markedly improved compared to prior study 11/08/2022.? No tamponade physiology. Patient hx anesthesia problems: none Family hx anesthesia problems: none Results Review: All pre-operative results and documents have been reviewed as part of the pre-operative evaluation. [facility] Past Medical History Medical History (Reviewed 12/02/22 @ 10:55 by Brandee Clay
--- NOTE | 2022-12-02 11:30 | ECG_ITS ---
Measurements Intervals [place] Rate: 62 P: 46 MO: 171 QRS: -7 QRSD: 85 T: -34 QT: 407 QTc: 415 Interpretive Statements SINUS RHYTHM POSSIBLE LEFT ATRIAL ENLARGEMENT [-0.1mV P WAVE IN V1/V2] NONSPECIFIC T-WAVE ABNORMALITY BORDERLINE ECG COMPARED TO ECG 12/02/2022 10:03:49 SINUS RHYTHM NOW PRESENT Electronically Signed On 12-02-2022 17:07:13 CDT by Joselito Benites M.D.
[2022-12-02 11:45] VITALS: BP 100/61; PULSE 61; RESP 16; O2SAT 95
[2022-12-02 12:00] VITALS: BP 101/62; PULSE 60; RESP 16; O2SAT 98
[2022-12-02 12:14] VITALS: BP 101/61; PULSE 60; RESP 16; O2SAT 99
[2022-12-02 12:30] VITALS: BP 112/81; PULSE 63; RESP 16; O2SAT 98
[2022-12-02 12:45] VITALS: BP 106/72; PULSE 63; RESP 16; O2SAT 98
--- NOTE | 2022-12-02 14:15 | WPDHPUPDATE1 ---
History and Physical Update Update Date/Time: 12/02/22 11;10 History and Physical has been reviewed, including an updated exam of the patient. There are NO changes in the patient's condition. Risks, benefits, and alternatives have been discussed and questions answered. Patient agrees to proceed with procedure.
--- NOTE | 2022-12-02 14:15 | WPDTECDV ---
[facility] with Cardioversion Date of procedure: 12/02/22 Procedure Type: Transesophageal echocardiogram guided elective electrocardioversion Diagnosis: Atrial flutter with variable AV block Indications: Atrial flutter with variable AV block Description of Procedure: Brief history present illness: Patient is a pleasant 71-year-old female with a history of autoimmune disorder, obesity, pericarditis with pericardial effusion with recent diagnosis atrial flutter with RVR referred for transesophageal echocardiogram-guided elective electrical cardioversion in attempt to restore sinus rhythm. Procedure in detail: After verbal and written informed consent was obtained the patient risks, benefits, and alternatives explained in detail the patient agreed to proceed with the plan of care as outlined above. Patient was evaluated at bedside in the [facility] procedure room. On examination, neck was supple with normal range of motion, no restrictions to opening of the oral cavity, jaw angle and posterior hypopharynx was clear. Lungs were clear to auscultation. Patient was placed in appropriate 30 to 45 degree angle in a supine, slight left lateral decubitus position. Patient was monitored throughout the study with telemetry, oxygen saturation, end-tidal CO2 monitoring, blood pressure, heart rate, and respirations. Anterior and posterior defibrillator pads placed in the appropriate positions. The posterior hypopharynx was then locally anesthetized using repeated administration of Hurricaine spray as well as gargled viscous lidocaine. After local anesthetic of the posterior hypopharynx was achieved and the oral bite block placed, moderate sedation was administered. Through the oral bite block, the transesophageal echocardiogram probe was advanced into the posterior hypopharynx and into the esophagus easily and without complication. Multiple, multiplanar echocardiographic images were obtained in multiple standard re-projections. Pulsed wave, continuous-wave, and color-flow Doppler were utilized in conjunction with this study. At the conclusion of the study, the transesophageal echocardiogram probe was removed easily and without complication. Patient tolerated the procedure well without difficulty. Patient was in atrial fibrillation throughout the study. Sedation: Moderate Sedation/Anesthesia administration: Patient denied previous intolerance or complications with anesthesia/sedation. Please see Anesthesiology documentation for sedation detail administration and protocol. Local anesthesia of the posterior hypopharynx was achieved with single hurricaine spray. There were no other issues or complications and patient tolerated the procedure well and sedation protocol well and I was present for the entirety. Findings: FINDINGS: LEFT VENTRICLE: Size and systolic function were within normal limits without wall motion abnormalities with ejection fraction of 60%. RIGHT VENTRICLE: Size and systolic function within normal limits. LEFT ATRIUM: Normal size. RIGHT ATRIUM: Normal size. INTERATRIAL SEPTUM: Interatrial septum is anatomically normal without evidence of shunt with color-flow Doppler nor with injection of agitated saline. MITRAL VALVE: Mitral valve is anatomically normal with preserved leaflet excursion and mild thickening with mild regurgitation with least 2 smaller regurgitant jets.. AORTIC VALVE: The aortic valve was an anatomically normal 3 leaflet structure with normal leaflet excursion and no regurgitation identified. TRICUSPID VALVE: The tricuspid valve is anatomically normal with normal leaflet excursion with mild regurgitation identified. No mobile elements identified. PULMONIC VALVE: Pulmonic valve was not well visualized, however, trivial regurgitation was identified. LEFT ATRIAL APPENDAGE: Anatomically normal structure with prominent pectinate muscles without thrombus or vegetation identified. Left atrial appendage velocities
== END 2022-12-02 13:25 | disposition home or self-care (01) ==
PROVIDERS: PCP Family Medicine; Visit Provider Internal Medicine Cardiovascular Disease
PROC: (CPT 93312; principal; 2022-12-02 11:00)
PROC: 5A2204Z Restoration of Cardiac Rhythm, Single (ICD-10-PCS; 2022-12-02 11:00)
DX: I48.92 Unspecified atrial flutter (principal); I44.39 Other atrioventricular block; I08.1 Rheumatic disorders of both mitral and tricuspid valves; F41.9 Anxiety disorder, unspecified; I49.9 Cardiac arrhythmia, unspecified; K21.9 Gastro-esophageal reflux disease without esophagitis; E78.2 Mixed hyperlipidemia; E03.9 Hypothyroidism, unspecified; K58.9 Irritable bowel syndrome, unspecified; E66.9 Obesity, unspecified; Z68.41 Body mass index [BMI] 40.0-44.9, adult; R00.0 Tachycardia, unspecified; Z79.01 Long term (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 of 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; Z79.891 Long term (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 of opiate analgesic; Z82.49 Family history of ischemic heart disease and other diseases of the circulatory system; Z87.898 Personal history of other specified conditions
CPT/HCPCS: 36415; 80048; 83735; 92960; 93312; 93320; 93325; J2001; J2704; J7030

== ENCOUNTER 2023-04-30 14:30 | Outpatient (CLI) | payer MEDICARE, SELFPAY ==
[2023-04-30 14:23] LABS: Toxigenic C. Diff NEGATIVE (NEGATIVE)
[2023-04-30 15:08] LABS: CRP < 0.5 mg/dL (<1.0)
[2023-04-30 16:29] LABS: Erythrocyte Sedimentation Rate 21 mm/hr (0-20)
[2023-05-08 00:02] LABS: Calprotectin, Stool 131 mcg/g
== END 2023-04-30 14:31 | disposition home or self-care (01) ==
LOC: ANHLAB 14:35
PROVIDERS: PCP Family Medicine; Visit Provider Nurse Practitioner
DX: K51.90 Ulcerative colitis, unspecified, without complications (principal)
CPT/HCPCS: 36415; 83993; 85652; 86140; 87493

== ENCOUNTER 2023-08-27 16:04 | Outpatient (CLI) | payer MEDICARE, SELFPAY ==
[2023-08-27 16:56] LABS: Appearance Urine Clear (Clear); Bilirubin Urine Negative (Negative); Blood Urine Negative (Negative); Color Urine Yellow (Yellow); Glucose Urine UA Negative (Negative); Ketones Urine Negative (Negative); Leukocyte Esterase Ur Negative LEU/UL (Negative); Nitrate Urine Negative (Negative); Protein Urine Negative (Negative); Specific Grav Ur 1.014 (1.001-1.035); Urobilinogen Urine 0.2 mg/dL (<2.0); pH Urine 5.5 (5.0-9.0)
[2023-08-27 16:57] LABS: Basophils Absolute Auto 0.1 K/mm3 (0.0-0.1); Eosinophils Absolute Auto 0.1 K/mm3 (0-0.3); Hematocrit 47.1 % (37.0-47.0); Hemoglobin 15.3 g/dL (12.0-15.0); Immature Granulocyte Absolute 0.04 K/mm3 (0.00-0.031); Immature Granulocyte Percent A 0.4 % (0-0.5); Lymphocytes Absolute Auto 1.63 K/mm3 (0.9-3.2); Lymphocytes Percent Auto 17.6 % (18.3-44.2); Mean Corpuscular HGB Conc 32.5 g/dl (32-36); Mean Corpuscular Hemoglobin 28.2 pg (26-34); Mean Corpuscular Volume 86.7 fl (80-100); Mean Platelet Volume 9.6 fl (7.4-10.4); Monocytes Absolute Auto 0.7 K/mm3 (0.1-0.6); Monocytes Percent Auto 7.9 % (2.6-8.5); Neutrophils Absolute Auto 6.7 K/mm3 (1.3-6.7); Neutrophils Percent Auto 72.1 % (45.5-73.1); Platelet Count Result 487 k/mm3 (150-375); Red Blood Count 5.43 M/mm3 (4.2-5.4); Red Cell Distribution Width 13.4 % (11.5-14.5); White Blood Count 9.3 K/mm3 (4.5-10.0)
[2023-08-27 17:03] LABS: Add Urine Microscopic? NO
[2023-08-27 17:28] LABS: Erythrocyte Sedimentation Rate 6 mm/hr (0-20)
[2023-08-27 17:46] LABS: Alanine Aminotransferase 25 U/L (6-35); Albumin Level 4.8 g/dL (3.5-5.1); Alkaline Phosphatase 94 U/L (38-126); Anion Gap 10 mmol/L (4-12); Aspartate Amino Transferase 35 U/L (14-36); Bilirubin,Total 0.8 mg/dL (0.2-1.3); Blood Urea Nitrogen 21 mg/dL (7-17); CRP < 0.5 mg/dL (<1.0); Carbon Dioxide 26 mmol/L (22-30); Chloride 102 mmol/L (98-107); Estimated Glomerular Filt Rate > 60; Glucose 104 mg/dL (65-110); Potassium 4.5 mmol/L (3.4-5.0); Sodium 138 mmol/L (137-145)
== END 2023-08-27 16:05 | disposition home or self-care (01) ==
PROVIDERS: PCP Family Medicine; Visit Provider Nurse Practitioner
DX: K51.90 Ulcerative colitis, unspecified, without complications (principal); R68.81 Early satiety; K52.9 Noninfective gastroenteritis and colitis, unspecified
CPT/HCPCS: 36415; 80053; 81003; 85025; 85652; 86140

== ENCOUNTER 2023-08-29 16:31 | Outpatient (NON) | payer MEDICARE, SELFPAY ==
[2023-09-05 20:54] LABS: Calprotectin, Stool 727 mcg/g
== END 2023-08-29 16:32 | disposition home or self-care (01) ==
PROVIDERS: PCP Family Medicine; Visit Provider Nurse Practitioner
DX: K51.90 Ulcerative colitis, unspecified, without complications (principal); R68.81 Early satiety
CPT/HCPCS: 83993

== ENCOUNTER 2023-12-01 12:09 | Outpatient (NON) | payer MEDICARE, SELFPAY ==
[2023-12-06 19:08] LABS: Calprotectin, Stool 466 mcg/g
== END 2023-12-01 12:10 | disposition home or self-care (01) ==
PROVIDERS: PCP Family Medicine; Visit Provider Nurse Practitioner
DX: K51.90 Ulcerative colitis, unspecified, without complications (principal); R19.5 Other fecal abnormalities
CPT/HCPCS: 83993

== ENCOUNTER 2024-04-07 00:09 | Day surgery (SDC) | payer MEDICARE, SELFPAY ==
[2024-04-01 15:02] VITALS: BMI 44.4
--- NOTE | 2024-04-01 15:50 | PC.NURSE ---
Spoke with _PATIENT_ regarding medication _ELIQUIS. _PATIENT___verbalizes understanding that the last dose is to be taken on _04/03/2024_ and the Endoscopist will instruct them when to restart after the procedure.
--- NOTE | 2024-04-06 14:16 | PC.NURSE ---
I received report on pts director cardiac done in Dr. Soto office in Feb. Received a phone call from Indy AVALOS in her office stating Dr. Turner said pt is still cleared as previously sent on clearance form that nothing showed up on the monitor that would preclude her from having colonoscopy tomorrow.
--- OUTSIDE RECORDS SUMMARY | 2024-04-07 00:13 | XMS_ITS | Referral Summary ---
Author Organization [facility] [place] [address] [address] [place] [phone] Care Team Providers Care Outside Installer Apprentice Name Role Phone David Parks MD Primary Care Provider [phone] Encounters Date Type Department Care Team Description 04/05/2024 Telephone [facility] Medical [facility] Cardiology [address] [place] [address] [address] [place] [phone] Neena Turner MD cardiac clearance 04/01/[address] [place] [phone] Neena Turner MD 03/04/2024 2:30 PM BULK PLANT MANAGER Ancillary Procedure [facility] Cardiology [address] [place] [address] [place] [phone] Palpitations 03/04/2024 2:15 PM BULK PLANT MANAGER Office Visit [facility] Cardiology [address] [place] [address] [place] [phone] Neena Turner MD Mixed hyperlipidemia (Primary Dx); Palpitations from Last 3 Months Allergies Active Allergy Reactions Criticality Noted Date Comments Ciprofloxacin Itching,Stomach upset Low 11/27/2022 Iodinated Contrast Media Anaphylaxis High 11/27/2022 Green Dye Swelling Medium 06/29/2015 Medications levothyroxine (SYNTHROID) 50 mcg tablet Take 1 tablet (50 mcg total) by mouth daily Active multivitamin tablet Take 1 tablet by mouth daily 3 Active ergocalciferol (VITAMIN D) 50,000 unit capsule Take 1 capsule (50,000 Units total) by mouth once a week 3 Active Eliquis 5 mg tablet Take 1 tablet (5 mg total) by mouth 2 (two) times a day 3 Active ondansetron ODT (ZOFRAN-ODT) 4 mg disintegrating tablet Take 1 tablet (4 mg total) by mouth as needed 3 Active HYDROcodone-acetam inophen (NORCO) 7.5-325 mg per tablet Take 1 tablet by mouth every 8 (eight) hours as needed for pain 3 Active LORazepam (ATIVAN) 1 mg tablet Take 1 tablet (1 mg total) by mouth 2 (two) times a day as needed Active hydrocortisone 1 % cream Apply topically as needed for irritation Active azaTHIOprine (IMURAN) 50 mg tablet Take 2 tablets (100 mg total) by mouth daily 4 Active budesonide EC (ENTOCORT EC) 3 mg 24 hr capsule Take 3 capsules (9 mg total) by mouth daily 4 Active metoprolol tartrate (LOPRESSOR) 25 mg immediate release tablet Take 1.5 tablets (37.5 mg total) by mouth nightly Every 8 hours 4 Active lubiprostone (AMITIZA) 24 mcg capsule Take by mouth 5 Active omeprazole (PriLOSEC) 40 mg capsule Take 1 capsule (40 mg total) by mouth daily 4 Active TURMERIC ORAL Take 2,000 Int'l Units by mouth Active Active Problems Problem Noted Date Diagnosed Date Medication side effects 06/10/2023 History of pericarditis 01/07/2023 Paroxysmal atrial flutter (CMS/HCC) 01/07/2023 Chronic anticoagulation 01/07/2023 At risk for amiodarone toxicity with long term care administrator u se 01/07/2023 Morbid obesity with body mas s index (BMI) of 40.0 to 44.9 in adult 01/07/2023 Acquired hypothyroidism 01/07/2023 Acute viral pericarditis 11/27/2022 Diastolic congestive heart failure (CMS/HCC) 12/2022 Atrial fibrillation with RVR (CMS/HCC) 3 Social History Tobacco Use Types Packs/Day Years Used Date Smoking Tobacco: Never Smokeless Tobacco: Never Tobacco Cessation:Counseling Given: Not Answered Comments Unknown Sex and Gender Information Value Date Recorded Sex Assigned at Not on file Legal Sex Female 4:13 AM BULK PLANT MANAGER Gender Identity Not on file Sexual Orientation Not on file Last Filed Vital Signs Vital Sign Reading Time Taken Comments Blood Pressure 112/68 03/04/2024 2:41 PM BULK PLANT MANAGER Pulse 93 03/04/2024 2:41 PM BULK PLANT MANAGER Temperature - - Respiratory Rate - - Oxygen Saturation 97% 03/04/2024 2:41 PM BULK PLANT MANAGER Inhaled Oxygen Concentration - - Weight 135.2 kg (298 lb) 03/04/2024 2:41 PM BULK PLANT MANAGER Height 172.7 cm (5' 8 ) 03/04/2024 2:41 PM BULK PLANT MANAGER Body Mass Index 45.31 03/04/2024 2:41 PM BULK PLANT MANAGER Plan of Treatment Not on file Procedures Procedure Name Priority Date/Time Associated Diagnosis Comments LIPID PANEL Routine 03/27/2024 9:55 AM BULK PLANT MANAGER Mixed hyperlipidemia [facility]CT - MOBILE CARDIAC TELEMETRY EVENT MONITOR Routine 03/04/2024 3:46 PM BULK PLANT MANAGER Palpitations POCT LIPID PANEL Routine 03/04/2024 2:36 PM BULK PLANT MANAGER Mixed hyperlipidemia from Last 3 Months Results * (ABNORMAL) Lipid panel (03/27/2024 9:55 AM BULK PLANT MANAGER) [facility] Cholesterol 265(H) 100 - 199 mg/dL [facility] - 01 Triglycerides 208(H) 0 - 149 mg/dL [facility] - 01 HDL Cholesterol 59 >39 mg/dL [facility] - 01 VLDL 38 5 - 40 mg/dL [facility] - 01 LDL, calculated 168(H) 0 - 99 mg/dL [facility] - 01 Blood 03/27/2024 9:55 AM BULK PLANT MANAGER 03/27/2024 Narrative [facility] - 03/28/2024 8:07 AM BULK PLANT MANAGER Performed at: [facility] [id number] Construction Consultant: Efe Castañeda PhD, Phone: [phone] us Neena Turner MD LAB BLOOD ORDERABLES Fi nal Result [facility] - 01 * [facility]CT Mobile Cardiac Telemetry Event Monitor (03/04/2024 3:46 PM BULK PLANT MANAGER) Anatomical Region Laterality Modality Electrocardiogra phy Narrative 03/18/2024 4:37 PM BULK PLANT MANAGER Images from the original result were not included. AMBULATORY TECHNICAL PROFESSIONAL REPORT Patient Name: Windy Kan Date of : 1950 Requesting Physician: Neena Turner M.D. Date of Interpretation: 03/18/24 Type of Monitor: 14 Day Mobile Cardiac Outpatient Core Machine Tender Date of the Study / Enrollment Period: 03/04/2024 to 03/17/2024 Indication: Palpitations Quality of the Study: Average. Total analysis time of 11 days, 4 hours, 36 minutes. Interpretation: Predominant rhythm is sinus rhythm. The average heart rate was 73 beats per minute. The minimum heart rate was 55 beats per minute. The maximum heart rate was 113 beats per minute. No evidence of atrial fibrillation, SVT, heart block. The PAC burden is <1%. The PVC burden is <1%. There was 1 episode of NSVT consisting of 4 beats. There was 1 pause consisting of 3.2 seconds. Patient reported 3 events during the monitoring period. No symptoms were described with these events. These events correlated to sinus rhythm with PAC, sinus rhythm with atrial run, sinus rhythm with PACs. Conclusions: Sinus rhythm with an average heart rate of 73 beats per minute. One episode of NSVT consisting of 4 beats. There was a 3.2 second pause. Patient reported 3 events during the monitoring period. No symptoms were described with these events. These events correlated to sinus rhythm with PAC, sinus rhythm with atrial run, sinus rhythm with PACs. Neena Turner M.D., [facility] 03/18/24 us Neena Turner MD [facility] PRO CEDURES Final Result * POCT lipid panel (03/04/2024 2:36 PM BULK PLANT MANAGER) Cholesterol, POC 283 mg/dL HDL, POC 74 mg/dL Triglycerides, POC 184 mg/dL LDL Cholesterol POC 171 mg/dL Chol/HDL Ratio, POC 2.3 Non-HDL Cholesterol, POC 208 mg/dL Cholesterol Total, POC 283 mg/dL Capillary blood 03/04/2024 2 :36 PM BULK PLANT MANAGER [facility] Kathy Turner MD POINT OF CARE TEST ANNA PRECIADO Final Result from Last 3 Months Insurance MEDICARE [facility] MEDICARE [facility] Care Teams Outside Installer Apprentice Relationship Specialty Start Date End Date David Parks MD PCP - General Family Medicine 11/08/22
--- OUTSIDE RECORDS SUMMARY | 2024-04-07 00:13 | XMS_ITS | Encounter Summary ---
Author Organization [facility] Healthcare Address [address] [place] [address] Care Team Providers Care Iron Carrier Name Role Phone David Parks MD Primary Care Provider [phone] Reason for Visit * Reason Onset Date Comments cardiac clearance 04/05/2024 Encounter Details Date Type Department Care Team (Late st Contact Info) Description 04/05/2024 Telephone [facility] Cardiology [address] [place] [address] Neena Turner MD [address] [place] [id number] cardiac clearance Social History Tobacco Use Types Packs/Day Years Used Date Smoking Tobacco: Never Smokeless Tobacco: Never Comments Unknown Sex and Gender Information Value Date Recorded Sex Assigned at Not on file Legal Sex Female 4:13 AM RAILCAR FOREMAN Gender Identity Not on file Sexual Orientation Not on file documented as of this encounter Miscellaneous Notes * Telephone Encounter - Indy Epstein RN - 04/06/2024 2:10 PM RAILCAR FOREMAN Spoke with RP regarding pts and endo messages and she noted pt is still fine to proceed with procedure tomorrow-notified both pt and endo and they verbalized understanding. CAR FOREMAN * Telephone Encounter - Kristin Harris - 04/06/2024 1:30 PM CST Yandy from [facility] requesting a call back from a RN to discuss the pts upcoming colonoscopy. Please advise. Thank you. Contact [phone] CAR FOREMAN * Telephone Encounter - Kristin Harris - 04/05/2024 4:20 PM CST Pt calling back to check on the status of the below message. Informed pt that the RN has sent the information to RP and we are waiting on a response from her. Pt states that she has a colonoscopy scheduled at tomorrow 04/06 and she would like to know the results prior to. States that she is nervous about the anesthesia. Please advise. Thank you. Contact [phone] CAR FOREMAN * Telephone Encounter - Indy Epstein RN - 04/05/2024 3:23 PM RAILCAR FOREMAN Will forward pt question on to RP. Please advise, thank you! CAR FOREMAN * Telephone Encounter - Heike Patterson - 04/05/2024 3:19 PM CST Pt requesting call to discuss monitor results. Contact: CAR FOREMAN documented in this encounter Plan of Treatment Not on file documented as of this encounter Visit Diagnoses Not on filedocumented in this encounter Care Teams Iron Carrier Relationship Specialty Start Date End Date David Parks MD PCP - General Family Medicine 11/08/22 documented as of this encounter
--- OUTSIDE RECORDS SUMMARY | 2024-04-07 00:13 | XMS_ITS | Clinical Summary ---
Author Organization [facility] Address [address] [place] [address] Phone Care Team Providers Care Carbon Cutter Name Role Phone Nicolás Turner MD Primary Care Provider [phone] Allergies Active Allergy Reactions Criticality Noted Date Comments Dye Swelling Low 06/29/2015 Medications LORazepam (ATIVAN) 1 mg tablet Take 1 mg by mouth every 8 hours as needed. Active levothyroxine 50 mcg tablet Take 50 mcg by mouth. Active aspirin-caffein e-butalbital (FIORINAL) 325-40-50 mg capsule Take 1 Capsule by mouth every 4 hours as needed. Active metoprolol succinate (TOPROL XL) 25 mg Extended Release 24 hour tablet Take 25 mg by mouth. Active mesalamine (LIALDA) 1.2 gram Tablet, Delayed Release (E.C.) Take 2.4 Grams by mouth. Active rosuvastatin (CRESTOR) 5 mg tablet Take 5 mg by mouth daily. Active ergocalciferol (VITAMIN D2) 50,000 unit capsule Take 50,000 Units by mouth every 2 weeks. Active mesalamine (ROWASA) 4 gram/60 mL Enema Insert 4 Grams by rectum daily at bedtime. Active pantoprazole (PROTONIX) 40 mg Tablet, Delayed Release (E.C.) Take 1 Tablet (40 mg) by mouth daily. Take 1 hour before breakfast 90 Tablet 3 03/30/19 21 Active mesalamine (Canasa) 1,000 mg Suppository Insert 1 Suppository (1,000 mg) by rectum daily at bedtime. 30 Suppository 5 03/31/19 21 Active mesalamine (LIALDA) 1.2 gram Tablet, Delayed Release (E.C.) Take 2 Tablets (2.4 Grams) by mouth daily with breakfast. 180 Tablet 3 04/15/19 21 Active Active Problems Problem Noted Date Diagnosed Date Prediabetes 04/02/2020 Family History Medical History Relation Name Comments Colon Cancer Neg Hx Social History Tobacco Use Types Packs/Day Years Used Date Smoking Tobacco: Never Alcohol Use Standard Drinks/Week Comments Not Currently 0 (1 standard drink = 0.6 oz pur e alcohol) Comments No Sex and Gender Information Value Date Recorded Sex Assigned at Not on file Legal Sex Female 2:44 PM WEDDING CAKE DESIGNER Gender Identity Not on file Sexual Orientation Not on file Last Filed Vital Signs Vital Sign Reading Time Taken Comments Blood Pressure 120/74 05/17/2020 4:25 PM CDT Pulse 78 03/30/2020 10:22 AM WEDDING CAKE DESIGNER Temperature - - Respiratory Rate - - Oxygen Saturation - - Inhaled Oxygen Concentration - - Weight 130.4 kg (287 lb 6.4 oz) 05/17/2020 4:25 PM CDT Height 175.3 cm (5' 9 ) 05/17/2020 4:25 PM CDT Body Mass Index 42.44 05/17/2020 4:25 PM CDT Plan of Treatment Health Maintenance Due Date Last Done Comments DTAP/TDAP/TD VACCINES (1 - Tdap) 1969 BREAST CANCER SCREENING 1990 COLORECTAL SCREENING 12/13/1995 Colorectal Cancer Screening 12/13/1995 FIT-DNA Q 3 years 12/13/1995 FIT/FOBT Q 1 year 12/13/1995 Flex Sig/CT Colonography Q 5 years 12/13/1995 PNEUMOCOCCAL VACCINE 65+ YEARS (1 of 1 - PCV) 12/13/19 ZOSTER VACCINE (1 of 2) 2000 OSTEOPOROSIS SCREENING 12/13/2015 INFLUENZA VACCINE (#1) 2023 RSV VACCINE (60+ or ) (1 - 1-dose 75+ series) 2025 Insurance MEDICARE PART A AND B [facility] BLUE PREFERRED Care Teams Carbon Cutter Relationship Specialty Start Date End Date Nicolás Turner MD [address] [place] [address] PCP - General Internal Medicine 03/30/20
--- OUTSIDE RECORDS SUMMARY | 2024-04-07 00:13 | XMS_ITS | Referral Summary ---
Author Organization [facility] Address [address] [facility] [place] [address] Care Team Providers Care Line Welder Name Role Phone David Parks MD Primary Care Provider [phone] Source Comments [facility],non-owned Affiliates and Associated Physician Practices is amultiple site organization consisting of ambulatory clinics and hospital sitesin [place], [place], [place] and [place]. This disclosure is being madepursuant to the Care Everywhere program and may not contain all information available regarding this patient. Last updated 17.[facility] Allergies Active Allergy Reactions Criticality Noted Date Comments Green Dye Swelling Low 06/29/2015 Contrast-Iodinated Agents For Ct/Other 06/29/2015 Medications * Be aware that medications may not be up to date on this document. Alwaysverify current medications with the patient. Medication Sig Dispensed Refills Start Date End Date Status levothyroxine (SYNTHROID) 50 MCG tablet Take 50 mcg by mouth daily before breakfast Active LORazepam (ATIVAN) 1 MG tablet Take 1 mg by mouth every 8 hours as needed for Anxiety Active metoprolol succinate XL 24hr (TOPROL XL) 25 MG tablet Take 25 mg by mouth at bedtime Active mesalamine EC (LIALDA) 1.2 g tablet Take 2.4 g by mouth daily with breakfast Active mesalamine (ROWASA) 4 g enema Insert 1 enema into the rectum at bedtime Active HYDROcodone-acetamin ophen (NORCO) 10-325 MG tablet Take 1 tablet by mouth every 6 hours as needed for Pain Active Esomeprazole Magnesium (NEXIUM PO) Take 40 mg by mouth once daily Active Folic Acid (FOLATE PO) Take 5 mg by mouth once daily Active methocarbamol (ROBAXIN) 1000 MG/10ML injection 1,000 mg by Intravenous route every 8 hours Active methotrexate (RHEUMATREX) 2.5 MG tablet Take 7.5 mg by mouth every 7 days Active rosuvastatin (CRESTOR) 10 MG tablet Take 5 mg by mouth once daily Active Multiple Vitamins-Minerals (CENTRUM VITAMINTS PO) Active sfudiktwbs-gipyuuo-m affeine (Fiorinal) 50-325-40 MG capsule TAKE 1 CAPSULE BY MOUTH TWICE A DAY NEEDED FOR HEADACHE 07/31/2021 Active Cholecalciferol (vitamin D3) 1.25 MG (50410 UT) capsule Take 1 (one) capsule by mouth 09/12/2022 Active DULoxetine (Cymbalta) 20 MG capsule Take 1 (one) capsule by mouth 2 times daily 02/13/2022 Active vitamin D, ergocalciferol, (Drisdol) 1.25 MG (70531 UT) capsule Take 1 (one) capsule by mouth every 7 days 04/19/2022 Active fexofenadine (Cindy) 180 MG tablet Take 1 (one) tablet by mouth once daily 08/05/2021 Active levothyroxine (Synthroid) 25 MCG tablet 09/20/2021 Active metoprolol tartrate IR (Lopressor) 25 MG tablet TAKE ONE TABLET BY MOUTH EVERY NIGHT AT BEDTIME AND TAKE ONE-HALF TABLET EVERY MORNING 07/22/2022 Active Paxlovid, 300/100, 08/07/2022 Active predniSONE (Deltasone) 10 MG tablet TAKE 3 TABLETS BY MOUTH DAILY FOR 5 DAYS 05/16/2022 Active triamterene-hydroCHL OROthiazide (Dyazide) 37.5-25 MG capsule TAKE 1 CAPSULE BY MOUTH DAILY NEEDED FOR SWELLING 09/14/2021 Active Active Problems Problem Noted Date Diagnosed Date Prediabetes 04/02/2020 PMB (postmenopausal bleeding) 12/20/2013 Overview (01/04/2021): Overview: 11/28 - EMB - neg 01/07 - EMB - neg Endometrial polyp Overview (06/09/2018): Overview: 07/02: Hystx, D&C - Polyp: benign; Endometrial curettings: benign Immunizations Name Administration Dates Next Due Federico Morris primary monova lent 12+ yr 0.5mL 12/14/2020,04/18/2020,03/16/2020 Social History Tobacco Use Types Packs/Day Years Used Date Smoking Tobacco: Never Smokeless Tobacco: Never Tobacco Cessation:Counseling Given: Not Answered Alcohol Use Standard Drinks/Week Comments No 0 (1 standard drink = 0.6 oz pur e alcohol) Sex and Gender Information Value Date Recorded Sex Assigned at Not on file Gender Identity Not on file Sexual Orientation Not on file Last Filed Vital Signs Vital Sign Reading Time Taken Comments Blood Pressure 126/74 10/01/2022 11:42 AM CDT Pulse 64 07/10/2015 9:06 AM CDT Temperature 36.3 C (97.4 F) 07/10/2015 9:06 AM CDT Respiratory Rate 16 07/10/2015 9:06 AM CDT Oxygen Saturation 100% 07/10/2015 9:06 AM CDT Inhaled Oxygen Concentration - - Weight 125.2 kg (276 lb) 10/01/2022 11:42 AM CDT Height 172.7 cm (5' 8 ) 10/01/2022 11:42 AM CDT Body Mass Index 41.97 10/01/2022 11:42 AM CDT Functional Status Functional Status Response Date of Assess ment Is person deaf or have serious hearing difficult y? No 07/10/2015 Is person blind or have serious difficulty seein g? No 07/10/2015 Does person have serious dif ficulty walking/climbing stairs? No 07/10/2015 Does person have difficulty dressing/bathing? No 07/10/2015 Does person have difficulty doing errands alone? No 07/10/2015 Cognitive Status Response Date of Assessm ent Does person have difficulty concentrating/remembering/making decisions? No 07/10/2015 Plan of Treatment Not on file Advance Directives Documents on File Type Date Recorded Patient Vocational Horticulture Instructor Expl anation Adv Directive/Living Will/POA 07/12/2015 9:33 PM Care Teams Line Welder Relationship Specialty Start Date End Date David Parks MD [address] [place] [address] PCP - General 10/09/21
--- OUTSIDE RECORDS SUMMARY | 2024-04-07 00:13 | XMS_ITS | Clinical Summary ---
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 01/07/2023 Morbid obesity with body mas s index (BMI) of 40.0 to 44.9 in adult 01/07/2023 Acquired hypothyroidism 01/07/2023 Acute viral pericarditis 11/27/2022 Diastolic congestive heart failure (CMS/HCC) 12/2022 Atrial fibrillation with RVR (CMS/HCC) 3 Encounters Date Type Department Care Team Description 04/05/2024 Telephone [facility] Medical [facility] [address] [place] [phone] Neena Turner MD cardiac clearance 04/01/2024 Telephone [facility] [address] [place] [phone] Neena Turner MD 03/04/2024 2:30 PM ORAL AND MAXILLOFACIAL SURGERY RESIDENT Ancillary Procedure [facility] [address] [place] [phone] Palpitations 03/04/2024 2:15 PM ORAL AND MAXILLOFACIAL SURGERY RESIDENT Office Visit [facility] [address] [place] [phone] Neena Turner MD Mixed hyperlipidemia (Primary Dx); Palpitations from Last 3 Months Medical History Medical History Date Comments Thyroid disease Arrhythmia Atrial flutter (CMS/HCC) (HCC) Chest pain CHF (congestive heart failure) (CMS/HCC) (HCC) Family History Medical History Relation Name Comments Heart disease Brother Heart disease Father Heart disease Mother Relation Name Status Comments Brother Alive Father Mother Social History Tobacco Use Types Packs/Day Years Used Date Smoking Tobacco: Never Smokeless Tobacco: Never Tobacco Cessation:Counseling Given: Not Answered Comments Unknown Sex and Gender Information Value Date Recorded Sex Assigned at Not on file Legal Sex Female 4:13 AM ORAL AND MAXILLOFACIAL SURGERY RESIDENT Gender Identity Not on file Sexual Orientation Not on file Obstetrics History Last Filed Vital Signs Vital Sign Reading Time Taken Comments Blood Pressure 112/68 03/04/2024 2:41 PM ORAL AND MAXILLOFACIAL SURGERY RESIDENT Pulse 93 03/04/2024 2:41 PM ORAL AND MAXILLOFACIAL SURGERY RESIDENT Temperature - - Respiratory Rate - - Oxygen Saturation 97% 03/04/2024 2:41 PM ORAL AND MAXILLOFACIAL SURGERY RESIDENT Inhaled Oxygen Concentration - - Weight 135.2 kg (298 lb) 03/04/2024 2:41 PM ORAL AND MAXILLOFACIAL SURGERY RESIDENT Height 172.7 cm (5' 8 ) 03/04/2024 2:41 PM ORAL AND MAXILLOFACIAL SURGERY RESIDENT Body Mass Index 45.31 03/04/2024 2:41 PM ORAL AND MAXILLOFACIAL SURGERY RESIDENT Plan of Treatment Health Maintenance Due Date Last Done Comments Breast Cancer Screening-Mammogram 1950 Colon Cancer Screening-Colonoscopy 1950 Depression Screening 1950 Fall Risk Assessment 1950 Hepatitis C Screening 1950 Osteoporosis Screening-Bone Density Scan 1950 Hepatitis B Screening 1968 Zoster Vaccine (1 of 2) 1969 Pneumococcal vaccine 65+ (2 of 2 - PPSV23) 02/20/2013 12/26/2012 Well Visit 65+ 12/13/2015 DTaP/Tdap/Td Vaccine (2 - Tdap) 01/04/2021 1 Covid-19 Vaccine (5 - 2023-2 5 season) 2023 06/27/2021, 12/14/2020, 04/18/2020, Additional history exists Influenza Vaccine (#1) 2023 02/01/2022, 2013 Procedures Procedure Name Priority Date/Time Associated Diagnosis Comments LIPID PANEL Routine 03/27/2024 9:55 AM ORAL AND MAXILLOFACIAL SURGERY RESIDENT Mixed hyperlipidemia MCT - MOBILE CARDIAC TELEMETRY EVENT MONITOR Routine 03/04/2024 3:46 PM ORAL AND MAXILLOFACIAL SURGERY RESIDENT Palpitations POCT LIPID PANEL Routine 03/04/2024 2:36 PM ORAL AND MAXILLOFACIAL SURGERY RESIDENT Mixed hyperlipidemia from Last 3 Months Results * (ABNORMAL) Lipid panel (03/27/2024 9:55 AM ORAL AND MAXILLOFACIAL SURGERY RESIDENT) Pathologist [facility] Cholesterol 265(H) 100 - 199 mg/dL [facility] - 01 Triglycerides 208(H) 0 - 149 mg/dL [facility] - 01 HDL Cholesterol 59 >39 mg/dL [facility] - 01 VLDL 38 5 - 40 mg/dL [facility] - 01 LDL, calculated 168(H) 0 - 99 mg/dL [facility] - 01 Blood 03/27/2024 9:55 AM ORAL AND MAXILLOFACIAL SURGERY RESIDENT 03/27/2024 Narrative [facility] - 03/28/2024 8:07 AM ORAL AND MAXILLOFACIAL SURGERY RESIDENT Performed at: 01 - [facility] [address] [id number] Zigzagger: Efe Castañeda PhD, Phone: [phone] Neena Turner MD LAB BLOOD ORDERABLES Fi nal Result Performing Organization Address City/State/[facility] Co de Phone Number [facility] - 01 * [facility] Mobile Cardiac Telemetry Event Monitor (03/04/2024 3:46 PM ORAL AND MAXILLOFACIAL SURGERY RESIDENT) Anatomical Region Laterality Modality Electrocardiogra phy Narrative 03/18/2024 4:37 PM ORAL AND MAXILLOFACIAL SURGERY RESIDENT Images from the original result were not included. 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 Date of Interpretation: 03/18/24 Type of Monitor: 14 Day Mobile Cardiac Outpatient Registered Occupational Therapist Date of the Study / Enrollment Period: [...] sinus rhythm with PACs. Neena Turner M.D., [facility] 03/18/24 Neena Turner MD CV CARDIAC SERVICES PRO CEDURES Final Result * POCT lipid panel (03/04/2024 2:36 PM ORAL AND MAXILLOFACIAL SURGERY RESIDENT) Cholesterol, POC 283 mg/dL HDL, POC 74 mg/dL Triglycerides, POC 184 mg/dL LDL Cholesterol POC 171 mg/dL Chol/HDL Ratio, POC 2.3 Non-HDL Cholesterol, POC 208 mg/dL Cholesterol Total, POC 283 mg/dL Capillary blood 03/04/2024 2 :36 PM ORAL AND MAXILLOFACIAL SURGERY RESIDENT Neena Turner MD POINT OF CARE TEST ORDPatrick PRECIADO Final Result from Last 3 Months Insurance [facility]IC[facility] Care Teams Clinical Pharmacologist Relationship Specialty Start Date End Date David Parks MD PCP - General Family Medicine 11/08/22
--- OUTSIDE RECORDS SUMMARY | 2024-04-07 00:13 | XMS_ITS | Continuity of Care Document ---
Author Organization [facility] Address [address] [place] [address] Dr Mariano [address] [place] [phone] Phone Care Team Providers Care Life Sciences Teacher Name Role Phone Vega OD, Neal Unavailable Unavailable Procedures Procedure Date Eye Exam & Treatment Refraction CL Replacement - Vistakon Disp W/BW Soft [facility] No Charge Contact Lens Check CL Replacement - Other Lens [facility] Eye Exam & Treatment Refraction CL Replacement - Vistakon Disp W/BW Soft [facility] CL Replacement - Vistakon Other 008 [facility] CL Replacement - Vistakon Disp W/BW Soft [facility] Eye Exam & Treatment Refraction CL Replacement - Vistakon Disp W/BW Soft [facility] CL Replacement - Vistakon Disp W/BW Soft [facility] CL Replacement - Vistakon Disp W/BW Soft [facility] Corneal Topography Refraction Eye Exam & Treatment CL Replacement - Vistakon Disp W/BW Soft [facility] No Charge Contact Lens Check Advance Directives Directive Yes / No Effective Date File Name No Information Encounters Encounter Description Practice Location Reason(s) For Visit Diagnoses Date Provider Providers Copied on Encounter [facility], [address], [place], [place], [id number], [place] tel:[phone] [facility] No Information Oct-0 7-201 0 Vega OD Neal. [address], [place], [place], [facility], . tel:[phone] [facility] Eye [facility], [address], [place], [place], [id number], [place] tel:[phone] [facility] No Information Aug-0 5-200 9 Vega OD Neal. [address], [place], [place], [facility], [place]. tel:[phone] [facility] Eye [facility], [address], [place], [place], [id number], [place] tel:[phone] [facility] No Information Nik-0 9-200 9 Vega OD Neal. [address], [place], [facility], [place]. tel:[phone] [facility] Eye [facility], [address], [place], [place], [id number], [place] tel:[phone] [facility] No Information Nik-0 7-200 9 Vega OD Neal. [address], [place], [facility], [place]. tel:[phone] [facility] Eye [facility], [address], [place], [place], [id number], [place] tel:[phone] [facility] No Information Dinesh-2 5-200 9 Vega OD Neal. [address], [place], [facility], [place]. tel:[phone] [facility] Eye [facility], [address], [place], [place], [id number], [place] tel:[phone] [facility] No Information May-0 1-200 9 Vega OD Neal. [address], [place], [facility], [place]. tel:[phone] [facility] Eye [facility], [address] [place] [address] [address], [place], [place], [id number], tel:[phone] [facility] No Information Oct-3 1-200 8 Vega OD Neal. [address], [place], [facility], [place]. tel:[phone] [facility] Eye [facility], [address] [place] [address] [address], [place], [place], [id number], tel:[phone] [facility] No Information Nik-0 3-200 8 Vega OD Neal. [address], [place], [facility], [place]. tel:[phone] [facility] Eye [facility], [address] [place] [address] [address], [place], [place], [id number], [place] tel:[phone] [facility] No Information Dinesh-1 9-200 8 Vega OD Neal. [address], [place], [facility], [place]. tel:[phone] [facility], [address] [place] [address] [address], [place], [place], [id number], [place] tel:[phone] [facility] No Information Apr-2 2-200 8 Vega OD Neal. [address], [place], [address], [place]. tel:[phone] [facility] Eye [facility], [address] [place] [address] [address], [place], [place], [id number], [place] tel:[phone] [facility] No Information Oct-0 2-200 7 Vega OD Neal. [address], [place], [address], [place]. tel:[phone] [facility], [address], [place], [place], [id number], [place] tel:[phone] [facility] No Information Nik-2 7-200 7 Vega OD Neal. [address], [place], [facility], [place]. tel:[phone] [facility], [address] [place] [address] [address], [place], [place], [id number], [place] tel:[phone] [facility] No Information Dinesh-2 6-200 7 [facility], [place], [place], [id number], . tel:[phone] Referring Provider: Neal Vega OD A, [address], [place], [facility]. tel:[phone] [facility], [address] [place] [address] [address], [place], [place], [id number], [place] tel:[phone] [facility] No Information Dinesh-1 2-200 7 Vega OD Neal. [address], [place], [facility], [place]. tel:[phone] [facility], [address] [place] [address] [address], [place], [place], [id number], [place] tel:[phone] [facility] No Information Mar-0 6-200 7 Vega OD Neal. [address], [place], [address], [place]. tel:[phone] [facility], [address] [place] [address] [address], [place], [place], [id number], [place] tel:[phone] [facility] No Information Feb-2 0-200 7 Vega OD Neal. [address], [place], [address], [place]. tel:[phone] Family History Family Member Type Diagnosis Age At Onset No Information Payers Payer name Insurance type Covered republican ID Victorino wang(s) [employer] Benefit Plan [id number] Social History Type Description Quantity Date Captured Comments Sex Female Smoking Status No Information Chief Complaint And Reason For Visit No Information Reason For Referral Reason For Referral No Information History Of Present Illness Encounter Date Complaint History Of Prese nt Illness No Information Functional Status Date Functional Assessmen t No Information Instructions Date Instruction Additional Infor mation No Information Assessments Type Assessment Date No Information Patient Care Teams Name Effective Dates (start - stop) Status Members No Information
--- OUTSIDE RECORDS SUMMARY | 2024-04-07 00:13 | XMS_ITS | Data Portability ---
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 It has been 3 months since her last cortisone injection both knees. She has moderately severe medial compartment osteoarthritis. She continues work weight loss. She is unable take anti-inflammatori es due to history of irritable bowel syndrome and ulcerative colitis. She is finally going to be seeing wringer machine operator in July for evaluation. She wished to have injections today. Physical exam: 71-year-old female she is alert. She walks relatively well. She has very large legs. I am unable to tell whether there is definite effusion knee. she has moderate tenderness over medial joint lines to palpation knees. There is no increased swelling in either lower extremity. After ChloraPrep was used on skin 20 mg Kenalog and 3 cc 0.5% ropivacaine was injected into both knees. Risk infection discussed. Impression: 71-year-old female who has moderately severe medial compartment osteoarthritis in both knees. She continues get good relief from the injections. We will see her back in 3 months repeat injection. Not available 06/07/2022 11:36:32 09/06/2022 09/06/2022 HPI: Patient returns. She is here for cortisone injection into both of her knees. Last shots were 3 months ago. She gets good relief, approximately 2 months, from the shots. She has moderately severe medial compartment osteoarthritis in both knees. She is not a surgical candidate due to weight. Physical exam: 71-year-old female alert pleasant. She walks with Dooly crutches in both hands and has done this for a long time. She has mild effusions in both knees. Moderate tenderness over both medial joint lines to palpation. Range of motion is from 7-120 degrees bilaterally. After ChloraPrep was used on skin 20 mg Kenalog and 3 cc of 0.5% ropivacaine was injected both knees. Risk of infection discussed. Impression: 71-year-old female with moderately severe medial compartment osteoarthritis in both knees. Shots continue to work well for her. We will see her in 3 months. Not available 09/06/2022 12:31:19 01/03/2023 01/03/2023 Impression: Patient has severe medial compartment osteoarthritis right knee moderately severe medial compartment osteoarthritis left knee. She also has rather severe weakness in abduction in both hips and pronounced Trendelenburg sac bilaterally. 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 I explained that this is likely related to her extreme obesity and it is important that she continue to work hard on weight loss as surgical repair of these degenerative tears is generally unsuccessful. Tendon tissues are usually degraded and do not hold sutures well and there is usually associated pronounced muscular atrophy and fatty infiltration which is irreversible. This is the reason she benefits from the Dooly crutches. She would like cortisone shots in both knees today. I have discussed risk of infection with her and there is small risk of bleeding complications in the joints and she is now on a blood thinner. After ChloraPrep prep, 20 mg of Kenalog and 4 cc of 0.5% ropivacaine were injected into each knee without difficulty. I will see her back in 3 months to assess her progress. I have encouraged her to continue to work hard on losing weight by decreasing her daily caloric intake 40. 30 minutes were spent in total care this patient more than half the time spent in [id number] care. Not available 01/05/2023 14:32:44 04/11/2023 04/11/2023 Patient returns. She requests cortisone shots in both knees min today. Her last injections were 3 months ago. She has [id number]-krzm medial compartment osteoarthritis the right knee moderately severe medial compartment osteoarthritis left knee. She suffers from morbid obesity. Her last weight was 276 lb 3 months ago and she does not feel this changed. She knows it is important for her to start to lose weight and she feels that she is getting closer to the time when she is going to want to proceed with knee replacement surgery and realizes that she has to lose weight before we can do surgery. Her obesity is concentrated in her legs which complicates knee replacement surgery more. She does take Eliquis 5 mg twice daily and I have reviewed with her the risk of bleeding into the joint as a complication of cortisone injections as well as the risk of infection. She takes the Eliquis for atrial fibrillation states she is now in sinus rhythm. Her heart rhythm problems developed after she developed severe pericarditis. It is thought this was a complication of her COVID infection and or COVID vaccination. On exam today she has full extension still both knees she walks with 1 Dooly crutch. Is difficult to determined if she has effusions in her knees due to her obesity. Her skin looks normal no erythema. Patient would like cortisone shots again today. After Betadine and alcohol prep, 20 mg of Kenalog and 4 cc 0.5% ropivacaine were injected in both knees of difficulty. She can continue getting a cortisone shot as office every 3 months if they are helpful and necessary. 20 minutes were spent total care this patient more than half the time spent in [id number]-vs-[id number] care. Not available 04/12/2023 17:16:41 Plan of Treatment Reminders Order Date Submit Date Provider Last Modified By Organization Details Last Modified Time Details Appointments None recorded. Lab None recorded. Referral None recorded. Procedures injection/a spiration joint/bursa (PROC) - in office procedure, administere d by provider 2023 024 [email or web address] In-Office Order, Internal Use Only DO Not Attach Compendium DO Not Attach Compendium, Do Not Delete/merge, [id number] 12:06:29 injection/a spiration joint/bursa (PROC) - in office procedure, administere d by provider 2022 023 In-Office Order, Internal Use Only DO Not Attach Compendium DO Not Attach Compendium, Do Not Delete/merge, [id number] 3 12:24:44 injection/a spiration joint/bursa (PROC) - in office procedure, administere d by provider 2022 023 [email or web address] In-Office Order, Internal Use Only DO Not Attach Compendium DO Not Attach Compendium, Do Not Delete/merge, [id number] 12:06:49 injection/a spiration joint/bursa (PROC) - in office procedure, administere d by provider 2022 023 [email or web address] In-Office Order, Internal Use Only DO Not Attach Compendium DO Not Attach Compendium, Do Not Delete/merge, [id number] 10:49:56 Surgeries None recorded. Imaging XR, knee 2022 023 [email or web address] [facility], [address], [place], [address], 3 10:22:27 Medication Orders Kenalog 10 mg/mL suspension for injection 2023 024 [facility]216, [address], [place], [id number], 4 14:19:07 ropivacaine (PF) 5 mg/mL (0.5 %) injection solution 2023 024 [facility] #04129, [address] [facility], [place], [place], [id number], 4 14:19:07 Kenalog 10 mg/mL suspension for injection 2022 023 [facility], [address], [place], [id number], 3 16:28:15 ropivacaine (PF) 5 mg/mL (0.5 %) injection solution 2022 023 [facility], [address], [place], [id number], 3 16:28:15 Kenalog 10 mg/mL suspension for injection [address], [address] [place], [address], 3 11:30:58 ropivacaine (PF) 5 mg/mL (0.5 %) injection solution [address], [address] [place], [address], 3 11:30:58 Kenalog 10 mg/mL suspension for injection [address], [address] [place], [address], 3 21:15:56 ropivacaine (PF) 5 mg/mL (0.5 %) injection solution [address], [address] [place], [address], 3 21:15:56 Patient TargetsNo targets recorded. Patient InstructionsNo instructions recorded. Reason for Referral None Reported. Results Created Date Observation Date Name Description Value Unit Range Abnormal Flag Note LastModifiedBy Organization Detail LastModifiedTime 01/04/20 23 XR, knee No observ ation record ed. [facility] [place] [address] [facility] [address], [place], [address], 01/05/2023 14:33:01 Result Notes None recorded. Problems Name Problem SNOMED Code Status Onset Date Resolution Date Notes Provider Name and Address Organization Details Recorded Time Bilateral osteoarthr itis of knees 8054625483043 07 Active 2021 Not Available [facility] 3 17:33:30 Headache 36882294 Active Not Available [facility] 3 17:33:30 Fever 220813980 Active Not Available [facility] 3 17:33:30 Osteoarthr itis 884345816 Active 2022 Not Available [facility] 3 17:33:30 Pain of bilateral knee joints 8063681087344 04 Active 2021 Not Available [facility] 3 17:33:30 Problem Notes None recorded. Procedures Surgical History Date Name Laterality Status Provider Name and Address Organization Details Recorded Time tonsillectomy completed Not Available [facility] 04/17/2022 17:31:32 extraction of cataract completed Not Available [facility] 04/17/2022 17:31:32 Imaging Results Imaging Date Name Status LastModified by Organiz ation Details LastModified Time 01/03/2023 XR, knee completed [facility] [place] [address], [place], [address], 01/05/2023 14:33:01 Procedure Notes None recorded. Medical Equipment None Reported. Allergies Allergen ID Allergen Name Allergen Category Reaction Reaction Severity Criticality Documentation Date Start Date Code Code System Note Provider Name and Address Organization Details Recorded Time 89419 Iodinated contrast media (substanc e) medicatio n Not available Not available Not available 04/17/2022 83228 2004 SNOMED Not Available [facility] 3 17:35:49 Medications Name Sig Start Date Stop Date Status Note LastModified by Organization Details LastModified Time multivitami n tablet TAKE 1 TABLET BY MOUTH DAILY active Not Available Not Available No t Available diclofenac 75 mg-misopros luis 200 mcg tablet,imme diate,delay ed release Take 1 tablet twice a day by oral route. 07/24 completed Not Available Not Available Not Available amoxicillin 500 mg capsule TAKE 1 CAPSULE BY MOUTH THREE TIMES A DAY UNTIL FINISHED 11/14 completed Not Available Not Available Not Available furosemide 40 mg tablet active Not Available Not Available Not Available prednisone 10 mg tablet TAKE 3 TABLETS BY MOUTH DAILY FOR 5 DAYS 09/06 completed Not Available Not Available Not Available atorvastati n 20 mg tablet active Not Available Not Available Not Available azithromyci n 250 mg tablet active Not Available Not Available Not Available metoprolol tartrate 100 mg tablet 04/11 completed Not Available Not Available Not Available amiodarone 200 mg tablet TAKE 2 TABLETS BY MOUTH DAILY 04/11 completed Not Available Not Available Not Available hydrocodone 5 mg-acetamin ophen 325 mg tablet TAKE 1 TABLET BY MOUTH TWICE DAILY NEEDED FOR PAIN 06/07 completed Not Available Not Available Not Available Nystop 100,000 unit/gram topical powder APPLY TO BILATERAL GROIN AREA TWICE DAILY UNTIL HEALED 04/11 completed Not Available Not Available Not Available prednisone 5 mg tablet TAKE 1 TO 2 TABLETS BY MOUTH DAILY 04/11 completed Not Available Not Available Not Available azathioprin e 50 mg tablet active Not Available Not Available Not Available fexofenadin e 180 mg tablet TAKE 1 TABLET BY MOUTH EVERY DAY 12/07 completed Not Available Not Available Not Available ciprofloxac in 500 mg tablet 07/24 completed Not Available Not Available Not Available hydrocodone 10 mg-acetamin ophen 325 mg tablet TAKE 1 TABLET BY MOUTH EVERY 12 HOURS NEEDED FOR PAIN 06/07 completed Not Available Not Available Not Available triamterene 37.5 mg-hydrochl orothiazide 25 mg capsule TAKE 1 CAPSULE BY MOUTH DAILY NEEDED FOR SWELLING 04/11 completed Not Available Not Available Not Available levothyroxi ne 25 mcg tablet 09/06 completed Not Available Not Available Not Available hydrocortis one acetate 25 mg rectal suppository INSERT 1 SUPPOSITO RY PER RECTUM 3 TIMES A DAY NEEDED FOR HEMORRHOI DS 12/07 completed Not Available Not Available Not Available amoxicillin 875 mg tablet TAKE 1 TABLET BY MOUTH EVERY 12 HOURS FOR 5 DAYS 09/06 completed Not Available Not Available Not Available Kenalog 10 mg/mL suspension for injection in office 2023 active [facility]: [phone] Not Available Not Available Not Available lorazepam 2 mg tablet 09/04 completed Not Available Not Available Not Available levothyroxi ne 50 mcg tablet TAKE 1 TABLET BY MOUTH EVERY DAY active Not Available Not Available No t Available hydrocodone 7.5 mg-acetamin ophen 325 mg tablet TAKE 1 TABLET BY MOUTH EVERY 8 HOURS FOR 2 WEEKS NEEDED FOR PAIN active Not Available Not Available No t Available esomeprazol e magnesium 40 mg capsule,del ayed release TAKE 1 CAPSULE BY MOUTH DAILY active Not Available Not Available No t Available neomycin-po lymyxin-dex ameth 3.5 mg/mL-10,00 0 unit/mL-0.1 % eye drops active Not Available Not Available Not Available nystatin 100,000 unit/gram topical cream APPLY TO THE AFFECTED AREA BY TOPICAL ROUTE 2 TIMES PER DAY 11/14 completed Not Available Not Available Not Available clotrimazol e-betametha sone 1 %-0.05 % topical cream 09/04 completed Not Available Not Available Not Available metoprolol tartrate 50 mg tablet TAKE ONE TABLET BY MOUTH EVERY 12 HOURS ALONG WITH A 25MG TABLET 04/11 completed Not Available Not Available Not Available butalbital- aspirin-caf feine 50 mg-325 mg-40 mg capsule TAKE 1 CAPSULE BY MOUTH TWICE A DAY NEEDED FOR HEADACHE active Not Available Not Available No t Available magnesium citrate oral solution 09/04 completed Not Available Not Available Not Available diclofenac sodium 75 mg tablet,chandu yed release 09/04 completed Not Available Not Available Not Available metoprolol succinate ER 25 mg tablet,exte nded release 24 hr TAKE 1 TABLET BY MOUTH DAILY 03/08 completed Not Available Not Available Not Available ergocalcife rol (vitamin D2) 1,250 mcg (50,000 unit) capsule TAKE 1 CAPSULE BY MOUTH ONCE PER WEEK active Not Available Not Available No t Available lorazepam 1 mg tablet TAKE 1 TABLET BY MOUTH TWICE DAILY NEEDED FOR ANXIETY active Not Available Not Available No t Available azelastine 137 mcg (0.1 %) nasal spray 04/02 completed Not Available Not Available Not Available Nasonex 50 mcg/actuati on [place] 2 sprays every day by intranasa l route. 07/24 completed Not Available Not Available Not Available methylpredn isolone 4 mg tablets in a dose pack active Not Available Not Available Not Available colchicine 0.6 mg tablet TAKE ONE TABLET BY MOUTH TWICE DAILY 04/11 completed Not Available Not Available Not Available ondansetron 4 mg disintegrat ing tablet DISSOLVE ONE TABLET IN MOUTH ONCE DAILY NEEDED FOR NAUSEA active Not Available Not Available No t Available doxycycline hyclate 100 mg tablet active Not Available Not Available No t Available amoxicillin 500 mg-potassiu m clavulanate 125 mg tablet 07/24 completed Not Available Not Available Not Available esomeprazol e magnesium 20 mg capsule,del ayed release active Not Available Not Available Not Available rosuvastati n 5 mg tablet TAKE 1 TABLET BY MOUTH DAILY 06/07 completed Not Available Not Available Not Available metoprolol tartrate 25 mg tablet TAKE ONE-HALF TABLET BY MOUTH EVERY MORNING AND ONE TABLET EVERY NIGHT AT BEDTIME active Not Available Not Available No t Available duloxetine 20 mg capsule,del ayed release TAKE 1 CAPSULE BY MOUTH TWICE DAILY 06/07 completed Not Available Not Available Not Available Vitamin C 11/14 completed Not Available Not Available Not Available B Complex 11/14 completed Not Available Not Available Not Available Fish Oil 04/11 completed Not Available Not Available Not Available metoprolol tartrate 04/02 completed Not Available Not Available Not Available Fiorinal 07/24 completed Not Available Not Available Not Available Co Q 10 11/14 completed Not Available Not Available Not Available multivitami n 11/14 completed Not Available Not Available Not Available mesalamine 1.2 gram tablet,chandu yed release TAKE 2 TABLETS BY MOUTH DAILY 04/11 completed Not Available Not Available Not Available cholecalcif levon (vitamin D3) 1,250 mcg (50,000 unit) capsule TAKE ONE CAPSULE BY MOUTH WEEKLY ON Mondays completed Not Available Not Available Not Available diclofenac 1 % topical gel 12/07 completed Not Available Not Available Not Available mesalamine rectal susp enema with cleansing wipes 4 gram/60 mL kit 11/14 completed Not Available Not Available Not Available GaviLyte-N 420 gram oral solution 09/04 completed Not Available Not Available Not Available Multaq 400 mg tablet TAKE 1 TABLET BY MOUTH TWICE DAILY WITH MEALS 04/11 completed Not Available Not Available Not Available Suprep Bowel Prep Kit 17.5 gram-3.13 gram-1.6 gram oral solution 09/04 completed Not Available Not Available Not Available Cindy Allergy 07/24 completed Not Available Not Available Not Available red yeast rice bid 11/14 completed Not Available Not Available Not Available ropivacaine (PF) 5 mg/mL (0.5 %) injection solution in office 2023 active [facility] [phone] Not Available Not Available Not Available Eliquis 5 mg tablet TAKE 1 TABLET BY MOUTH EVERY 12 HOURS FOR BLOOD THINNER active Not Available Not Available No t Available Proctosol HC 2.5 % topical cream perineal applicator 09/04 completed Not Available Not Available Not Available Linzess 72 mcg capsule TAKE 1 CAPSULE BY MOUTH DAILY 04/11 completed Not Available Not Available Not Available BinaxNOW COVID-19 Ag Self Test kit TEST DIRECTED TODAY 09/06 completed Not Available Not Available Not Available Paxlovid 300 mg (150 mg x 2)-100 mg tablets in a dose pack 01/03 completed Not Available Not Available Not Available Vitals Date Recorded Body height Provider Name an d Address Organization Details Last Updated DateTime 04/17/2022 171.45 cm Not Available [facility] 17:32:30 Date Recorded Body height Provider Name an d Address Organization Details Last Updated DateTime 06/07/2022 171.45 cm Ewelina Sanders [facility] 06/07/2022 10:47:31 Date Recorded Body height Provider Name an d Address Organization Details Last Updated DateTime 09/06/2022 171.45 cm Ewelina Sanders [facility] 09/06/2022 12:04:51 Date Recorded Body height Body mass index (BMI) Provider Name and Address Organization Details Last Updated DateTime 01/03/2023 172.09 cm 42.3 kg/m2 Cara Funk [facility] [employer] [facility] 01/03/2023 13:46:05 Date Recorded Body weight Provider Name an d Address Organization Details Last Updated DateTime 01/03/2023 242695.49 g Ewelina Sanders [facility] [employer] [facility] 01/03/2023 12:36:39 Date Recorded Body height Provider Name an d Address Organization Details Last Updated DateTime 04/11/2023 172.09 cm Ewelina Sanders [facility] [employer] [facility] [employer] [facility] 04/11/2023 11:59:29 Social History None recorded. Functional Status None recorded. Mental Status None recorded. Family History Relationship Description Onset Age of this Age Resolved Age Notes LastModified by Organization Details LastModified Time Unspecified Relation Heart disease [id number] Not available 04/17/2022 17:31:33 Mother Hypertensive disorder [email or web address] Not available 2022 12:22:41 Father Hypertensive disorder [email or web address] Not available 2022 12:22:41 Medical History Condition Response BLINDNESS N KIDNEY STONES N MRSA N CARPAL TUNNEL SYNDROME N LUNG DISEASE/DISORDER N HISTORY OF DRUG ABUSE N COPD N RADIATION / CHEMOTHERAPY N SPORTS INJURY N ANKLE PAIN N BLOOD DISEASES N SCHIZOPHRENIA N SHINGLES N SHOULDER PAIN N DEPRESSION (INCLUDING POST ) N BOWEL PROBLEMS N STROKE/TIA N KNEE PAIN N ULCERS N BENIGN PROSTATIC HYPERPLASIA N OBESITY N GERD/NAUSEA N ANEURYSM N URINARY/BLADDER/KIDNEY PROBLEMS N CORONARY ARTERY DISEASE (CAD) N ADDICTION CONCERNS N USE OF BLOOD THINNERS N SKIN PROBLEMS N EMPHYSEMA N MUSCLE,JOINT OR BONE PROBLEMS N DVT N STOMACH ULCERS N BLOOD CLOTS N USE OF NSAIDS N CONCUSSION OR SPINAL TRAUMA N NEUROPATHY N AIDS/HIV N FRACTURES N HYPERTENSION N ELBOW PAIN N TOURETTE'S N Metal allergy N ANXIETY DISORDER N BLOOD TRANSFUSION N ANEMIA/BLOOD DISORDER N BIPOLAR DISORDER N BRONCHITIS N OSTEOARTHRITIS N TUBERCULOSIS N FOOT PROBLEM N HEART VALVE DISORDERS N ALLERGIES/HAYFEVER N SOFT TISSUE INJURY N INFECTIOUS DISEASE N HEART ARRHYTHMIA N INSOMNIA N HIGH CHOLESTEROL / HYPERLIPIDEMIA N RHEUMATOID ARTHRITIS N EDEMA N CHRONIC PAIN SYNDROME N CAROTID BLOCKAGE N BACK / NECK PROBLEMS N HAVE YOU BEEN HOSPITALIZED OR SEEN IN [facility] IN THE PAST YEAR ? N BURSITIS N HERNIATED DISC N DIALYSIS N FIBROMYALGIA N OSTEOPOROSIS N ARTHRITIS Y NO SIGNIFICANT PAST MEDICAL HISTORY N PERIPHERAL NEUROPATHY N DIABETES, TYPE N HEARTBURN / REFLUX N HEPATITIS / LIVER DISEASE N GOUT N ALZHEIMER'S DISEASE N SLEEP DISORDER N HERPES N HEADACHES/MIGRAINES N SEIZURES/EPILEPSY N VASCULAR DISEASE N Blood Disorder N HIP PAIN N DIZZINESS N HEAD TRAUMA OR INJURY N HEART DISEASE/HEART PROBLEMS N MULTIPLE SCLEROSIS N CANCER: SPECIFY N CARDIAC ARRHYTHMIA N ANESTHESIA COMPLICATIONS N ATRIAL FIBRILLATION N AUTOIMMUNE DISEASE N Gynecological HistoryNo gynecological history recorded. Obstetrics History GPAL:G 0 P 0 0 0 0 Immunizations Vaccine Type Date Status Note Provider Nam e and Address Organization Details Recorded Time polio, unspecified formulation 6 completed Not Available [facility] 04/17/2022 17:35:40 Influenza, high-dose, trivalent, PF 4 completed Not Available [facility] 04/17/2022 17:35:41 Pneumococcal conjugate PCV 13 3 completed Not Available [facility] 04/17/2022 17:35:41 DT (pediatric) 1 completed Not Available [facility] 04/17/2022 17:35:41 Past Encounters Encounter ID Performer Location Encounter Start Date Encounter Closed Date Diagnosis/Indication Diagnosis SNOMED-CT Code Diagnosis ICD10 Code Diagnosis Note [id number] [facility] [place] [address] [place] [address] 11/14/2021 00:00:00 11/14/2021 13:11:43 [id number] [facility] [place] [address] [place] [address] 12/07/2021 00:00:00 12/07/2021 12:14:51 [id number] [facility] [place] [address] [place] [address] 03/08/2022 00:00:00 03/17/2022 13:48:30 [id number] DAE Das [facility] [place] [address] [place] [address] 06/07/2022 10:42:44 06/07/2022 11:46:47 Bilateral osteoarthritis of knees [id number] 03050 M17.0 [id number] DAE Das [facility] [place] [address] [place] [address] 09/06/2022 11:59:27 09/06/2022 12:33:54 Bilateral osteoarthritis of knees [id number] 56215 M17.0 [id number] Vikas Rice MD [facility] [place] [address] [place] [address] 01/03/2023 11:54:44 01/07/2023 10:22:27 Bilateral osteoarthritis of knees [id number] 03450 M17.0 [id number] Vikas Rice MD [facility] [place] [address] [facility] [facility] [address] [place] [address] 04/11/2023 11:54:49 04/14/2023 10:00:18 Bilateral osteoarthritis of knees [id number] 64362 M17.0 Health Concerns Section Related Observation LastModified by Organization Detai ls LastModified Time None Recorded Concern Status LastModified by Organization Details LastModified Time None Recorded Advance Directives Directive None Recorded Payers Encounter Date Sequence Insurance Name Policy Number Policy Dang Covered Member ID Dang Member ID Guarantor Name 06/07/2022 1 [place]) Windy A Kan [id number] Windy A Kan 06/07/2022 2 [place] [id number] Windy A Kan [id number] Windy A Kan 09/06/2022 1 [place] Windy A Kan [id number] Windy A Kan 09/06/2022 2 [place] [id number] Windy A Kan [id number] Windy A Kan 01/03/2023 1 [place] Windy A Kan [id number] Windy A Kan 01/03/2023 2 [place] [id number] Windy A Kan [id number] 01 Windy A Kan 04/11/2023 1 [place] Windy A Kan [id number] 6 Windy A Kan 04/11/2023 2 [place] [id number] Windy A Kan [id number] Windy A Kan Notes Date Note Type Note Provider Name and Address Organization Details Recorded Time 01/03/2023 text/html Patient returns requesting cortisone shots in her knees today. She last had cortisone shots in August of 2020 both knees. They were helpful once again. Patient has severe medial compartment osteoarthritis in the right knee moderately severe medial compartment osteoarthritis left knee. She is trying to lose weight and hopes to have knee replacement surgery some day. She was admitted to the hospital November 08 through November 17 with pericarditis. She was in the [facility] IMU that entire time. 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 She was also noted to be in atrial flutter and was cardioverted but is on anticoagulation with Eliquis 5 mg b.i.d. in case her atrial flutter recurs. She was treated with Dr. Benites. She asked me my opinion on whether she should get coronavirus vaccines in the future and I recommended that she discuss this with Dr. Benites as having recurrent pericarditis is obviously a concern for her. She notes he has lost some weight mostly due to her illness she believes. She was 288 lb at last visit 3 and half months ago and now she is 276 lb. At home with out clothes on she is 271 she states. Vikas Rice MD [address] [place] [address], [place] [address], [place], [address], [place] - [facility] [place] [facility] 01/05/2023 14:33:19 OBGyn Episode No OBEpisode recorded.
--- OUTSIDE RECORDS SUMMARY | 2024-04-07 00:13 | XMS_ITS | Patient Health Summary ---
Author Organization [facility] Address [address] [place] [address] Care Team Providers Care Manager Maintenance Name Role Phone David Parks MD Primary Care Provider [phone] Note from [facility],non-owned Affiliates and Associated Physician Practices is amultiple site organization consisting of ambulatory clinics and hospital sitesin [place], [place], [place] and [place]. This disclosure is being madepursuant to the Care Everywhere program and may not contain all information available regarding this patient. Last updated 17.[facility] Allergies * Green Dye(Swelling) -Low Criticality * Contrast-Iodinated Agents For Ct/Other Medications * Be aware that medications may not be up to date on this document. Alwaysverify current medications with the patient. * levothyroxine (SYNTHROID) 50 MCG tablet Take 50 mcg by mouth daily before breakfast * LORazepam (ATIVAN) 1 MG tablet Take 1 mg by mouth every 8 hours as needed for Anxiety * metoprolol succinate XL 24hr (TOPROL XL) 25 MG tablet Take 25 mg by mouth at bedtime * mesalamine EC (LIALDA) 1.2 g tablet Take 2.4 g by mouth daily with breakfast * mesalamine (ROWASA) 4 g enema Insert 1 enema into the rectum at bedtime * HYDROcodone-acetaminophen (NORCO) 10-325 MG tablet Take 1 tablet by mouth every 6 hours as needed for Pain * Esomeprazole Magnesium (NEXIUM PO) Take 40 mg by mouth once daily * Folic Acid (FOLATE PO) Take 5 mg by mouth once daily * methocarbamol (ROBAXIN) 1000 MG/10ML injection 1,000 mg by Intravenous route every 8 hours * methotrexate (RHEUMATREX) 2.5 MG tablet Take 7.5 mg by mouth every 7 days * rosuvastatin (CRESTOR) 10 MG tablet Take 5 mg by mouth once daily * Multiple Vitamins-Minerals (CENTRUM VITAMINTS PO) * axzrvjfuoo-vgzgyeh-dejvacgz (Fiorinal) 50-325-40 MG capsule(Started 07/31/2021) TAKE 1 CAPSULE BY MOUTH TWICE A DAY NEEDED FOR HEADACHE * Cholecalciferol (vitamin D3) 1.25 MG (12747 UT) capsule(Started 09/12/2022) Take 1 (one) capsule by mouth * DULoxetine (Cymbalta) 20 MG capsule(Started 02/13/2022) Take 1 (one) capsule by mouth 2 times daily * vitamin D, ergocalciferol, (Drisdol) 1.25 MG (75355 UT) capsule(Started 04/19/2022) Take 1 (one) capsule by mouth every 7 days * fexofenadine (Cindy) 180 MG tablet(Started 08/05/2021) Take 1 (one) tablet by mouth once daily * levothyroxine (Synthroid) 25 MCG tablet(Started 09/20/2021) * metoprolol tartrate IR (Lopressor) 25 MG tablet(Started 07/22/2022) TAKE ONE TABLET BY MOUTH EVERY NIGHT AT BEDTIME AND TAKE ONE-HALF TABLET EVERY MORNING * Paxlovid, 300/100,(Started 08/07/2022) * predniSONE (Deltasone) 10 MG tablet(Started 05/16/2022) TAKE 3 TABLETS BY MOUTH DAILY FOR 5 DAYS * triamterene-hydroCHLOROthiazide (Dyazide) 37.5-25 MG capsule(Started 09/14/2021) TAKE 1 CAPSULE BY MOUTH DAILY NEEDED FOR SWELLING Active Problems Problem Noted Date Diagnosed Date Prediabetes 04/02/2020 PMB (postmenopausal bleeding) 12/20/2013 Endometrial polyp Immunizations * Covid Moderna primary monovalent 12+ yr 0.5mL(Given 12/14/2020, 04/18/2020, 03/16/2020) Social History Tobacco Use Types Packs/Day Years [...] Mass Index 41.97 10/01/2022 11:42 AM CDT Procedures * PAP IMAGE-GUIDED W HPV(Performed 04/04/2021) Performed for Well woman exam with routine gynecological exam * HPV DETECTION HIGH RISK [facility](Performed 04/04/2021) Performed for Well woman exam with routine gynecological exam * RI SONO EXAM, TRANSVAGINAL(Performed 04/04/2021) Performed for Postmenopausal bleeding * IMAGING/RADIOLOGY/XRAY RESULTS ORDER(Performed 04/04/2021) * RI BIOPSY OF UTERUS LINING(Performed 01/02/2021) Performed for Postmenopausal bleeding * PATHOLOGY TISSUE(Performed 01/02/2021) Performed for Postmenopausal bleeding * RI SONO EXAM, TRANSVAGINAL(Performed 01/02/2021) Performed for PMB (postmenopausal bleeding) * IMAGING/RADIOLOGY/XRAY RESULTS ORDER(Performed 01/02/2021) * XR KNEE BILAT 2VW OR LESS(Performed 11/16/2020) Performed for 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), Autoantibody titer positive, High risk medications (not 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) long- term use, Primary localized osteoarthritis of both knees * PAP IMAGE-GUIDED W HPV(Performed 10/16/2016) * PATHOLOGY/GENETICS HISTORICAL-ONBASE(Performed 10/16/2016) * CARDIAC RHYTHM STRIP ORDER(Performed 07/12/2015) * PATHOLOGY TISSUE EXAM (STL)(Performed 07/10/2015) Performed for PMB (postmenopausal bleeding) * HYSTEROSCOPY POLYPECTOMY WITH OR WITHOUT DILATION&CURETTAGE(Performed 07/10/2015) Performed for PMB (postmenopausal bleeding) * PATHOLOGY/GENETICS HISTORICAL-ONBASE(Performed 07/10/2015) * PATHOLOGY/GENETICS HISTORICAL-ONBASE(Performed 06/09/2015) * PATHOLOGY/GENETICS HISTORICAL-ONBASE(Performed 06/05/2015) * PAP IMAGE-GUIDED W HPV(Performed 12/07/2014) * PATHOLOGY/GENETICS HISTORICAL-ONBASE(Performed 12/07/2014) * PAP IMAGE-GUIDED W HPV(Performed 12/09/2012) * PATHOLOGY/GENETICS HISTORICAL-ONBASE(Performed 12/09/2012) * PATHOLOGY/GENETICS HISTORICAL-ONBASE(Performed 11/21/2011) * PAP IG RFLX HPV ASCU(Performed 08/12/2011) * PAP THINPREP(Performed 07/25/2010) * PAP THINPREP(Performed 01/17/2010) * PATHOLOGY/GENETICS HISTORICAL-ONBASE(Performed 01/17/2010) * PAP THINPREP(Performed 07/19/2009) * PATHOLOGY/GENETICS HISTORICAL-ONBASE(Performed 01/18/2009) * PATHOLOGY/GENETICS HISTORICAL-ONBASE(Performed 12/24/2007) Results * HPV DETECTION HIGH RISK [facility] (04/04/2021 1:03 PM CERTIFIED REGISTERED LOCKSMITH) High Risk Human Papilloma Result Not detected Not detected 04/11/2021 4:02 PM CERTIFIED REGISTERED LOCKSMITH [facility] High Risk Human Papilloma Interp 04/11/2021 4:02 PM CERTIFIED REGISTERED LOCKSMITH [facility] Comment:High Risk Human Freddie lloma Virus was Not Detected. Pathology/Cytolo gy MISCELLANEOUS SAMPLES / Unknown 04/04/2021 1:03 PM CERTIFIED REGISTERED LOCKSMITH 04/05/2021 12:25 PM CERTIFIED REGISTERED LOCKSMITH [facility] - 04/11/2021 4:02 PM CERTIFIED REGISTERED LOCKSMITH Nucleic acid isolated from the specimen was analyzed with a nucleic acid amplification test (FDA approved Gen-Probe HPV Assay) to detect high risk human papilloma virus (Types: 16, 18, 31, 33, 35, 39, 45, 51, 52, 56, 58, 59, 66, and 68). The reference range is Not Detected . Comment: These test results should not be used as the sole basis for clinical assessment and treatment of patients. These results should always be correlated with other available data (cytology, histology, and clinical information). Ron Fierro MD LAB - MICROBIOLOGY O RDERABLES [facility] [address] [phone] * PAP IMAGE-GUIDED W HPV (04/04/2021 1:03 PM CERTIFIED REGISTERED LOCKSMITH) Only the most recent of4 resultswithin the time period is included. Case Report Gynecologic Cytology Report Case: [id number] Authorizing Provider: Ron Fierro MD Collected: 04/04/2021 01:03 PM Ordering Location: [facility] Obstetrics Received: 04/05/2021 12:25 PM Gynecology and Women's [facility] First Screen: Jesus Pickett Specimen: THINPREP - IMAGE GUIDED, Cervix/Endocervix 04/09/2021 2:04 PM CERTIFIED REGISTERED LOCKSMITH [facility] LMP n/a 04/09/2021 2:04 PM CERTIFIED REGISTERED LOCKSMITH [facility] Menstrual Status Postmenopausal 03/21 2:04 PM CERTIFIED REGISTERED LOCKSMITH [facility] Specimen Adequacy Satisfactory for evaluation, endocervical/trans formation zone component present. 04/09/2021 2:04 PM CERTIFIED REGISTERED LOCKSMITH [facility] Categorization Negative for intraepithelial lesion or malignancy. 04/09/2021 2:04 PM CERTIFIED REGISTERED LOCKSMITH [facility] Interpretation MIRROR PAINTER Negative for intraepithelial lesion or malignancy. 04/09/2021 2:04 PM CERTIFIED REGISTERED LOCKSMITH [facility] Pap Footnote The Pap Smear is a screening test. False positive and false negative results occur. Negative results do not preclude abnormalities, thus clinical correlation is required. This specimen was evaluated by the ThinPrep Imaging System along with an additional manual rescreening by a transit mixer driver and/or pathologist. 04/09/2021 2:04 PM CERTIFIED REGISTERED LOCKSMITH [facility] Embedded Images 2:04 PM CERTIFIED REGISTERED LOCKSMITH [facility] Pathology/Cytolo gy MISCELLANEOUS SAMPLES / Unknown 04/04/2021 1:03 PM CERTIFIED REGISTERED LOCKSMITH 04/05/2021 12:25 PM CERTIFIED REGISTERED LOCKSMITH Ron Fierro MD LAB - PATHOLOGY/CYTO LOGY ORDERABLES [facility] [address] [place] [address], [facility] [phone] * RI SONO EXAM, TRANSVAGINAL (04/04/2021 11:25 AM CERTIFIED REGISTERED LOCKSMITH) Narrative Shai Gurrola RDMS - 04/04/2021 11:25 AM CERTIFIED REGISTERED LOCKSMITH Shai Gurrola RDMS 04/04/2021 11:25 AM Documentation in digisonics. Ron Fierro MD PROCEDURE/MINOR SURG ICAL ORDERABLES * IMAGING RADIOLOGY XRAY RESULTS ORDER (04/04/2021) Only the most recent of2 resultswithin the time period is included. Anatomical Region Laterality Modality Other Narrative 04/04/2021 Ordered by an unspecified provider. Scanned Document IMAGING * RI BIOPSY OF UTERUS LINING (01/02/2021 2:02 PM CERTIFIED REGISTERED LOCKSMITH) Narrative Ron Fierro MD - 01/02/2021 2:02 PM CERTIFIED REGISTERED LOCKSMITH Ron Fierro MD 01/02/2021 2:04 PM Endometrial Biopsy - Procedure Note Pre-operative diagnosis:postmenopausal bleeding Post-operative diagnosis: postmenopausal bleeding Procedure Details: The risks, benefits, indications and alternatives were discussed in detail with the patient with emphasis on infection, pain, and uterine perforation. Consent signed. The patient was placed in a dorsal lithotomy position. A speculum was used to visualize the cervical os. The cervix was cleaned with multiple swabs of Betadine. The cervix was grasped with a tenaculum and a Pipelle was placed through the cervix into the endometrial cavity. The tenaculum pulled through the cervix so it was regrasped. Scant tissue was recovered (2 passes) and sent for pathological examination in formalin. Uterus sounded to 8 cm. The tenaculum was removed, and the cervix had some bleeding where the tenaculum had torn through. Monsel's solution and pressure were applied. Hemostasis obtained. The patient tolerated the procedure well. Condition: Good Complications: None Sample: Endometrial sample to pathology. Plan: The patient was instructed to watch for a fever and to call with any problems. She was asked to take 600 mg of ibuprofen as needed for cramps/pain. Ron Fierro MD PROCEDURE/MINOR SURG ICAL ORDERABLES * PATHOLOGY TISSUE (01/02/2021 10:47 AM CERTIFIED REGISTERED LOCKSMITH) Case Report Surgical Pathology Report Case: [id number] Authorizing Provider: Ron Fierro MD Collected: 01/02/2021 10:47 AM Ordering Location: [facility] Obstetrics Received: 01/03/2021 12:15 PM Gynecology and Women's [facility] Pathologist: Evon Ballard MD Specimen: Endometrium Biopsy, EMB 01/04/2021 11:[address] [facility] Final Diagnosis Endometrium, biopsy: - Benign inactive endometrium with metaplasia - Negative for dysplasia or malignancy 01/04/2021 11:[address] [facility] Microscopic Description and Comment Performed. 01/04/2021 11:[address] [facility] Clinical History 01/04/2021 11:[address] [facility] Gross Description The requisition and specimen(s) are identified with the patient's name Windy Kan. Received in formalin, specimen A, labeled with patient's demographics is a 2.5 x 2.0 x 0.2 cm aggregate of maya-brown mucoid material, entirely submitted in cassette A1. DF 01/04/2021 11:[address] [facility] Disclaimer The performance characteristics of all immunohistochemical and indirect immunofluorescence stains (if any) cited in this report were determined by the Histopathology Laboratory of [facility]. Some of these tests were developed by our own laboratory and have not been cleared or approved by the US Food and Drug Administration. The FDA does not require this test to go through premarket FDA review. These tests are used for clinical purposes. They should not be regarded as investigational or for research. This laboratory is certified under the Clinical Laboratory Improvement Amendments (CLIA) as qualified to perform high complexity clinical laboratory testing. This case has been personally reviewed and interpreted by the attending (teaching) pathologist. 01/04/2021 11:24 AM CERTIFIED REGISTERED LOCKSMITH [facility] Embedded Images 01/04/2021 11:24 AM CERTIFIED REGISTERED LOCKSMITH [facility] Pathology/Cytolo gy OPEN BIOPSY OF ENDOMETRIUM / Unknown 01/02/2021 10:47 AM CERTIFIED REGISTERED LOCKSMITH 01/03/2021 12:15 PM CERTIFIED REGISTERED LOCKSMITH Ron Fierro MD LAB - PATHOLOGY/CYTO LOGY ORDERABLES Performing Organization Address City/State/[facility] Co de Phone Number [facility] [address] [place] [address], [facility] [phone] * RI SONO EXAM, TRANSVAGINAL (01/02/2021 10:04 AM CERTIFIED REGISTERED LOCKSMITH) Narrative Portia Ferraro RDMS - 01/02/2021 10:04 AM CERTIFIED REGISTERED LOCKSMITH Portia Ferraro RDMS 01/02/2021 10:04 AM Documentation in digisonics. Ron Fierro MD PROCEDURE/MINOR SURG ICAL ORDERABLES * XR KNEE BILAT ONE OR TWO VIEWS (11/16/2020 3:24 PM CDT) Anatomical Region Laterality Modality Lower Extremity Radiographic Yu ging 11/16/2020 4:11 PM CDT Impressions 11/16/2020 4:12 PM CDT Bilateral knee osteoarthritis, left greater than right. *Reading Radiologist: Enrique Renner on 11/16/2020 at 4:12 PM Narrative 11/16/2020 4:12 PM CDT Examination: Bilateral knee radiographs, 3 views each knee. HISTORY: Bilateral knee pain. FINDINGS: Right knee: There is mild medial compartment joint space loss. There are tiny osteophytes at the patellofemoral articulation. No fracture, malalignment, or joint effusion. Left knee: There is moderate joint space loss medial compartment. Patellofemoral osteophytes are present. There is no knee joint effusion. There is no fracture or malalignment. Procedure Note Enrique Renner MD - 11/16/2020 Examination: Bilateral knee radiographs, 3 views each knee. HISTORY: Bilateral knee pain. FINDINGS: Right knee: There is mild medial compartment joint space loss. There are tiny osteophytes at the patellofemoral articulation. No fracture, malalignment, or joint effusion. Left knee: There is moderate joint space loss medial compartment. Patellofemoral osteophytes are present. There is no knee joint effusion. There is no fracture or malalignment. IMPRESSION Bilateral knee osteoarthritis, left greater than right. *Reading Radiologist: Enrique Renner on 11/16/2020 at 4:12 PM Zane Taylor MD DIAGNOSTIC IMAGING O RDERABLES * PATHOLOGY/GENETICS HISTORICAL-ONBASE (10/16/2016) Only the most recent of10 resultswithin the time period is included. 10/16/2016 Ron Fierro MD LAB - CHEMISTRY ANNA PRECIADO Performing Organization Address City/State/[facility] [place] [address], [facility] * CARDIAC RHYTHM STRIP ORDER (07/12/2015 9:34 PM CDT) Narrative 07/12/2015 9:34 PM CDT Ordered by an unspecified provider. Scanned Document CARDIAC SERVICES ORD ERABLES * GROSS + MICRO EXAM (STL) (07/10/2015 8:01 AM CDT) Case Report Surgical Pathology Report Case: [id number] Authorizing Provider: Jeanine Fierro MD Collected: 07/10/2015 08:01 AM Ordering Location: [facility] Received: 07/10/2015 09:28 AM Pathologist: Ruth Robertson MD Specimens: A) - Polyp Endometrial B) - Endometrium Curettings 07/11/2015 11:27 AM CDT [facility] Final Diagnosis 1. Endometrial polyp, biopsy: -- Benign endometrial polyp 2. Endometrium, curettage: -- No pathologic diagnosis MC/na 07/11/2015 11:27 AM CDT [facility] Gross Description Specimen A endometrial polyp, consists of a maya-brown and soft polyp measuring 1.2 x 0.4 cm. The polyp stalk is inked in blue. The specimen is bisected and entirely submitted in a biowrap in cassette A1. Specimen B endometrial curettings, consists of multiple fragments of soft dark brown, mucoid and gelatinous tissue that measures 0.9 x 0.9 x 0.4 cm. The tissue is put in biowrap and entirely submitted in cassette B1. [facility]/ds 07/11/2015 11:27 AM CDT [facility] Microscopic Description 1. Sections shows a benign endometrial polyp. No hyperplasia, atypia, or malignancy is seen. 2. Sections show blood and benign endometrial mucosa. No atypia or malignancy is seen. MC/na 07/11/2015 11:27 AM CDT [facility] Pathology/Cytology ENDOMETRIAL POLYP SPECIMEN / Unknown 07/10/2015 8:01 AM CDT 07/10/2015 9:28 AM CDT Miscellaneous samples (specimen) SPECIMEN FROM ENDOMETRIUM OBTAINED BY CURETTAGE / Unknown 07/10/2015 8:05 AM CDT 07/10/2015 9:28 AM CDT Jeanine Fierro MD LAB - PATHOLOGY/CYTO LOGY ORDERABLES Performing Organization Address City/[facility]/ZIP Co de Phone Number [facility] [address] [place] [address] * PAP IG RFLX HPV ASCU (08/12/2011) PART OF UTERINE CERVIX / Unknown 08/12/2011 Historical Provider LAB - PATHOLOGY/C YTOLOGY ORDERABLES Performing Organization Address [facility] Co de Phone Number [address] * PAP THINPREP (07/25/2010) Only the most recent of3 resultswithin the time period is included. Cervical swab (specimen) PART OF UTERINE CERVIX / Unknown 07/25/2010 Narrative [facility] - 08/02/2010 8:03 AM CDT Preferred Lab:->OTHER EXTERNAL LAB Historical Provider LAB - PATHOLOGY/C YTOLOGY ORDERABLES Performing Organization Address [facility] Co de Phone Number [facility] Care Teams Manager Maintenance Relationship Specialty Start Date End Date David Parks MD [address] [place] [address] PCP - General 10/09/21
--- OUTSIDE RECORDS SUMMARY | 2024-04-07 00:13 | XMS_ITS | Clinical Summary ---
Author Organization [facility] Address [address] [place] [place] [address] Care Team Providers Care Continuity Person Name Role Phone David Parks MD Primary Care Provider [phone] Source Comments [facility],non-owned Affiliates and Associated Physician Practices is amultiple site organization consisting of ambulatory clinics and hospital sitesin [place], [place], [place] and [place]. This disclosure is being madepursuant to the Care Everywhere program and may not contain all information available regarding this patient. Last updated 17.[facility] Allergies Active Allergy Reactions Criticality Noted Date [...] Active Multiple Vitamins-Minerals (CENTRUM VITAMINTS PO) Active xucrdqtbuh-tizazpo-c affeine (Fiorinal) 50-325-40 MG capsule TAKE 1 CAPSULE BY MOUTH TWICE A DAY NEEDED FOR HEADACHE 07/31/2021 Active Cholecalciferol (vitamin D3) 1.25 MG (31100 UT) capsule Take 1 (one) capsule by mouth 09/12/2022 Active DULoxetine (Cymbalta) 20 MG capsule Take 1 (one) capsule by mouth 2 times daily 02/13/2022 Active vitamin D, ergocalciferol, (Drisdol) 1.25 MG (93730 UT) capsule Take 1 (one) capsule by mouth every 7 days 04/19/2022 Active fexofenadine (Icndy) 180 MG tablet Take 1 (one) tablet [...] Immunizations Name Administration Dates Next Due Federico Moderna primary monova lent 12+ yr 0.5mL 12/14/2020,04/18/2020,03/16/2020 Family History Medical History Relation Name Comments Hypertension Brother Hypertension Father Hypertension Mother Relation Name Status Comments Brother Father Mother Social History Tobacco Use Types [...] Mass Index 41.97 10/01/2022 11:42 AM CDT Plan of Treatment Health Maintenance Due Date Last Done Comments BONE DENSITY TESTING 1950 COLOGUARD (AGES 45-75) - COL ON CA SCREENING 1950 COLON MONITORING 1950 COLONOSCOPY - COLON CA SCREENING 1950 CT COLONOGRAPHY - COLON CA SCREENING 1950 Colorectal Cancer Screening 1950 FIT - COLON CA SCREENING 1950 FLEX SIG - COLON CA SCREENING 1950 MAMMOGRAM 1950 MEDICARE AWV 12 MONTHS 1950 HEPATITIS C SCREENING 12/07/1968 DTAP/TDAP/TD VACCINES (1 - Tdap) 1969 PNEUMOCOCCAL VACCINE 50+ (1 of 1 - PCV) 2000 ZOSTER VACCINE (1 of 2) 2000 Respiratory Syncytial Virus (RSV) Vaccine Pt: or over 60 yrs (1 - Risk 60-74 years 1-dose series) 2010 COVID-19 VACCINE (2023-2 5 season) 2023 12/14/2020, 04/18/2020, 03/16/2020 INFLUENZA VACCINE (#1) 2023 DEPRESSION SCREENING 02/18/2024 HEPATITIS B VACCINE Aged Out No longe r eligible based on patient's age to complete this topic HIB VACCINE Aged Out No longer eligi ble based on patient's age to complete this topic HPV VACCINE Aged Out No longer eligi ble based on patient's age to complete this topic MENINGOCOCCAL (Group B) VACCINE Aged Out No longer eligible b ased on patient's age to complete this topic MENINGOCOCCAL VACCINE Aged Out No rachel emilee eligible based on patient's age to complete this topic Advance Directives Documents on File Type Date Recorded Patient Manager Of Global Expl anation Adv Directive/Living Will/POA 07/12/2015 9:33 PM Care Teams Continuity Person Relationship Specialty Start Date End Date David Parks MD [address] [place] [address] PCP - General 10/09/21
[2024-04-07 12:00] VITALS: BP 140/71; PULSE 80; RESP 18; TEMP 36.3; O2SAT 98; BMI 43.7
[2024-04-07] MEDS: LACTATED RINGERS 1,000 ML 150 ML IV CONT (12:15)
--- NOTE | 2024-04-07 12:41 | P.PNAN_ITS ---
Anes - Initial Pre Proc Eval Procedure: Operation Date: 04/07/24 13:15 Proposed Procedures p Colonoscopy - Bolivar Jernigan MD Date/Time: 04/07/24 12:41 Surgeon: Bolivar Jernigan MD Pre Op Diagnosis: + Cologuard Patient Data Age: 73 Gender: F Height: 1.73 m Weight: 130.5 kg Last Vital Signs Temp 97.4 F L 04/07/24 12:00 Pulse 80 04/07/24 12:00 Resp 18 04/07/24 12:00 BP 140/71 04/07/24 12:00 Pulse Ox 98 04/07/24 12:00 O2 Del Method Room Air 04/07/24 12:00 Allergies Allergy/AdvReac Type Severity Reaction Status Date / Time ciprofloxacin Allergy Intermediate REDNESS Verified 04/07/24 11:58 Iodinated Contrast Media AdvReac Intermediate Gastrointestinal Verified 04/07/24 11:58 Upset sulfamethoxazole (From AdvReac Intermediate Palpitation Verified 04/07/24 11:58 Bactrim) s trimethoprim (From Bactrim) AdvReac Intermediate Palpitation Verified 04/07/24 11:58 s Home Medications ?Medication ?Instructions ?Recorded ?Confirmed ?Type simethicone 125 mg capsule (Gas-X 125 mg PO DAILY PRN Gastric Reflux 11/29/22 04/01/24 History Extra Strength) ondansetron 4 mg disintegrating 4 mg PO DAILY PRN Nausea And 08/27/23 04/01/24 Rx tablet Vomiting #30 tabs multivitamin 1 tablet PO DAILY 09/25/23 04/07/24 History omeprazole 40 mg capsule,delayed 40 mg PO DAILY #60 caps 10/08/23 04/07/24 Rx release [id number] 1 1 tablet PO DAILY 12/02/23 04/07/24 History mg-B6-B12 1 mg-C-D3 500 unit tablet lubiprostone 24 mcg capsule 24 mcg PO BID #60 caps 12/04/23 04/07/24 Rx (Amitiza) apixaban 5 mg tablet (Eliquis) 5 mg PO BID #180 tabs 03/29/24 04/07/24 Rx furosemide 40 mg tablet (Lasix) 40 mg PO QAM PRN edema 03/30/24 04/01/24 History metoprolol tartrate 100 mg tablet 12.5 mg PO TID 03/30/24 04/07/24 History sodium sul 1.479 gram-potas ch See Rx Instructions PO PER PKG DIR 03/31/24 Rx 0.188 gram-magnes sul 0.225 gram #24 tabs tablet (Sutab) [employer] CHOL. SUPPORT 1 cap PO QPM 04/01/24 04/07/24 History metoprolol tartrate 25 mg tablet 12.5 mg PO TID 04/01/24 04/07/24 History sodium,potassium,mag sulfates 17.5 354 ml PO ONCE #354 mL 04/01/24 Rx gram-3.13 gram-1.6 gram oral soln (Suprep Bowel Prep Kit) turmeric 1,000 mg PO BID 04/01/24 04/07/24 History hydrocodone 7.5 mg-acetaminophen 1 tablet PO Q8H PRN pain #60 tabs 04/05/24 04/07/24 Rx 325 mg tablet lorazepam 1 mg tablet 1 mg PO BID PRN Anxiety #60 tabs 04/05/24 04/07/24 Rx levothyroxine 50 mcg tablet 50 mcg PO DAILY #90 tabs 04/07/24 04/07/24 Rx Patient hx anesthesia problems: none Family hx anesthesia problems: none Results Review: All pre-operative results and documents have been reviewed as part of the pre-op erative evaluation. [facility] Past Medical History Medical History Irritable bowel disease Diarrhea Constipation Chest pain Nausea Upper abdominal pain Acute cholecystitis Elevated LFTs Sepsis Cholecystitis Elevated white blood cell count Elevated lipase Rhinorrhea Cardiac arrhythmia Chronic pain Hypothyroidism (acquired) Coccyx pain Dyspepsia Chronic headache Anxiety disorder, unspecified Mixed hyperlipidemia Ulcerative colitis Breast nodule Knee osteoarthritis Tachycardia Autoimmune disease, not elsewhere classified Seronegative rheumatoid arthritis History of encephalitis BMI greater than 40 Irritable bowel syndrome Heart palpitations GERD (gastroesophageal reflux disease) Arthritis Cataract Surgical History Surgical History History of cataract surgery History of tonsillectomy and adenoidectomy Family History Family History Father Hypertension Heart disease Acute myocardial infarction Mother Hypertension Heart disease Sibling Heart disease Acute myocardial infarction Social History Social History Social History: Patient currently lives at home with her significant other, David Roy. Full Code. Surrogate decision maker: Portia Engle (niece). 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 UC, RA, BMI 43, hx of aflutter/pericarditis, persists, now on b britton TID. Informed Consent: The patient's anesthetic plan and its attendant risks and benefits were discussed with the patient/family/POA. Questions were solicited and answers provided to the satisfaction of the patient/family/POA.
--- NOTE | 2024-04-07 13:57 | P.HP_ITS ---
H&P: HPI History of Present Illness Date/Time: 04/07/24 13:57 Chief Complaint: Ulcerative colitis- elevated calprotectin Narrative: the patient has a longstanding diagnosis of ulcerative colitis, and has been doing clinically well, however she has 2 determinations of calprotectin showing high levels ( more than 400 ). she is here for colonoscopy. Review of Systems Review of Systems: All systems reviewed & are unremarkable except as noted in HPI and below PMFSH Past Medical History Medical History Irritable bowel disease Diarrhea Constipation Chest pain Nausea Upper abdominal pain Acute cholecystitis Elevated LFTs Sepsis Cholecystitis Elevated white blood cell count Elevated lipase Rhinorrhea Cardiac arrhythmia Chronic pain Hypothyroidism (acquired) Coccyx pain Dyspepsia Chronic headache Anxiety disorder, unspecified Mixed hyperlipidemia Ulcerative colitis Breast nodule Knee osteoarthritis Tachycardia Autoimmune disease, not elsewhere classified Seronegative rheumatoid arthritis History of encephalitis BMI greater than 40 Irritable bowel syndrome Heart palpitations GERD (gastroesophageal reflux disease) Arthritis Cataract Surgical History Surgical History History of cataract surgery History of tonsillectomy and adenoidectomy Family History Family History Father Hypertension Heart disease Acute myocardial infarction Mother Hypertension Heart disease Sibling Heart disease Acute myocardial infarction Social History Social History Social History: Patient currently lives at home with her significant other, David Kirill. Full Code. Surrogate decision maker: Portia Engle (niece). 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 Gender identity (if verbalized by the patient): Female Spiritual care concerns: No Meds Home Medications and Allergies Home Medications ?Medication ?Instructions ?Recorded ?Confirmed ?Type simethicone 125 mg capsule (Gas-X 125 mg PO DAILY PRN Gastric Reflux 11/29/22 04/01/24 History Extra Strength) ondansetron 4 mg disintegrating 4 mg PO DAILY PRN Nausea And 08/27/23 04/01/24 Rx tablet Vomiting #30 tabs multivitamin 1 tablet PO DAILY 09/25/23 04/07/24 History omeprazole 40 mg capsule,delayed 40 mg PO DAILY #60 caps 10/08/23 04/07/24 Rx release [id number]-ptsciguekkq-lkxbvxlbmx 1 1 tablet PO DAILY 12/02/23 04/07/24 History mg-B6-B12 1 mg-C-D3 500 unit tablet lubiprostone 24 mcg capsule 24 mcg PO BID #60 caps 12/04/23 04/07/24 Rx (Amitiza) apixaban 5 mg tablet (Eliquis) 5 mg PO BID #180 tabs 03/29/24 04/07/24 Rx furosemide 40 mg tablet (Lasix) 40 mg PO QAM PRN edema 03/30/24 04/01/24 History metoprolol tartrate 100 mg tablet 12.5 mg PO TID 03/30/24 04/07/24 History sodium sul 1.479 gram-potas ch See Rx Instructions PO PER PKG DIR 03/31/24 Rx 0.188 gram-magnes sul 0.225 gram #24 tabs tablet (Sutab) [employer] CHOL. SUPPORT 1 cap PO QPM 04/01/24 04/07/24 History metoprolol tartrate 25 mg tablet 12.5 mg PO TID 04/01/24 04/07/24 History sodium,potassium,mag sulfates 17.5 354 ml PO ONCE #354 mL 04/01/24 Rx gram-3.13 gram-1.6 gram oral soln (Suprep Bowel Prep Kit) turmeric 1,000 mg PO BID 04/01/24 04/07/24 History hydrocodone 7.5 mg-acetaminophen 1 tablet PO Q8H PRN pain #60 tabs 04/05/24 04/07/24 Rx 325 mg tablet lorazepam 1 mg tablet 1 mg PO BID PRN Anxiety #60 tabs 04/05/24 04/07/24 Rx levothyroxine 50 mcg tablet 50 mcg PO DAILY #90 tabs 04/07/24 04/07/24 Rx Allergies Allergy/AdvReac Type Severity Reaction Status Date / Time ciprofloxacin Allergy Intermediate REDNESS Verified 04/07/24 11:58 Iodinated Contrast Media AdvReac Intermediate Gastrointestinal Verified 04/07/24 11:58 Upset sulfamethoxazole (From AdvReac Intermediate Palpitation Verified 04/07/24 11:58 Bactrim) s trimethoprim (From Bactrim) AdvReac Intermediate Palpitation Verified 04/07/24 11:58 s Vital Signs Vital Signs - 24 hr 04/07/24 12:00 Temperature 97.4 F L Pulse Rate 80 Respiratory Rate 18 Blood Pressure 140/71 Pulse Oximetry 98 Oxygen Delivery Room Air Exam Const: General: cooperative and healthy appearing Resp: Effort & Inspection: normal respiratory effort and able to speak in complete sentences Auscultation: clear to auscultation bilaterally Cardio: Rate: regular rate Rhythm: regular rhythm GI: Inspection: normal to inspection GI Palp: No No hepatosplenomegaly present Auscultation: normal bowel sounds Rectal Exam: deferred Skin: General skin exam: normal color Psych: Appearance: grossly normal Mental Status: mental status grossly normal Assessment and Plan Assessment and plan (1) Ulcerative colitis: Qualifiers: Ulcerative colitis location: unspecified ulcerative colitis location Digestive disease complication type: without complication Qualified Code(s): K51.90 - Ulcerative colitis, unspecified, without complications Code(s): K51.90 - Ulcerative colitis, unspecified, without complications Status: Acute Assessment and Plan: The patient is deemed a good candidate for the procedure. Consent signed. Will proceed.
[2024-04-07 15:05] VITALS: BP 118/59; PULSE 68; RESP 22; O2SAT 98
[2024-04-07 15:15] VITALS: BP 125/68; PULSE 70; RESP 14; O2SAT 95
[2024-04-07 15:25] VITALS: BP 119/64; PULSE 69; RESP 16; O2SAT 100
== END 2024-04-07 15:44 | disposition home or self-care (01) ==
PROVIDERS: PCP Family Medicine; Visit Provider Internal Medicine Gastroenterology
PROC: 0DJD8ZZ Inspection of Lower Intestinal Tract, Via Natural or Artificial Opening Endoscopic (ICD-10-PCS; CPT 45378; principal; 2024-04-07 13:15)
DX: K63.5 Polyp of colon (principal); K57.30 Diverticulosis of large intestine without perforation or abscess without bleeding; K58.9 Irritable bowel syndrome, unspecified; F41.9 Anxiety disorder, unspecified; E78.2 Mixed hyperlipidemia; K21.9 Gastro-esophageal reflux disease without esophagitis; I49.9 Cardiac arrhythmia, unspecified; G89.29 Other chronic pain; R51.9 Headache, unspecified; M17.10 Unilateral primary osteoarthritis, unspecified knee; R00.0 Tachycardia, unspecified; M35.9 Systemic involvement of connective tissue, unspecified; M06.00 Rheumatoid arthritis without rheumatoid factor, unspecified site; R00.2 Palpitations; E66.9 Obesity, unspecified; Z68.41 Body mass index [BMI] 40.0-44.9, adult; Z79.01 Long term (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 of 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; Z79.891 Long term (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 of opiate analgesic; Z98.890 Other specified postprocedural states; Z87.19 Personal history of other diseases of the digestive system; Z82.49 Family history of ischemic heart disease and other diseases of the circulatory system
CPT/HCPCS: 45385; 88305; J2704; J7120

== ENCOUNTER 2024-08-02 12:48 | Outpatient (CLI) | payer MEDICARE, SELFPAY ==
--- NOTE | ~2024-08-02 | XR_ITS ---
Right ankle Technique: AP and lateral views were obtained. Clinical History: Pain Findings: No acute fracture or dislocation is seen. Osseous alignment is anatomic. Ankle mortise and other visualized joint spaces are preserved. Soft tissues are otherwise unremarkable. Impression: No acute abnormality. Plantar calcaneal spur. Reviewed, dictated and finalized at [facility]. Impression: No acute abnormality. Plantar calcaneal spur.
--- NOTE | ~2024-08-02 | XR_ITS ---
Left ankle Technique: AP and lateral views were obtained. Clinical History: Pain Findings: No acute fracture or dislocation is seen. Osseous alignment is anatomic. Ankle mortise and other visualized joint spaces are preserved. Soft tissues are otherwise unremarkable. Impression: Unremarkable left ankle. Reviewed, dictated and finalized at location . Impression: Unremarkable left ankle.
--- NOTE | ~2024-08-02 | XR_ITS ---
AP and lateral views of the bilateral hips Clinical history: Pain Findings: No acute fracture or dislocation is seen. Osseous alignment is anatomic. There is mild dege nerative change of the left hip joint. Right hip joint intact.. Soft tissues are unremarkable. Impression: Mild degenerative change of the left hip joint. Reviewed, dictated and finalized at location . Impression: Mild degenerative change of the left hip joint.
--- NOTE | ~2024-08-02 | XR_ITS ---
Right Knee Technique: AP, lateral, and sunrise views were obtained. Clinical History: Pain Findings: No fracture or dislocation is seen. Osseous alignment is anatomic. There is mild spurring a t the medial joint line, lateral joint line, and patella. Soft tissues are unremarkable. No joint eff usion is seen. Impression: Mild tricompartmental degenerative change. Reviewed, dictated and finalized at location . Impression: Mild tricompartmental degenerative change.
--- NOTE | ~2024-08-02 | XR_ITS ---
Right foot Technique: AP and lateral views were obtained. Clinical History: Pain Findings: No acute fracture or dislocation is seen. Osseous alignment is anatomic. Joint spaces are p reserved without erosive or degenerative change. Plantar calcaneal spur present. Soft tissues are unr emarkable. Impression: Plantar calcaneal spur. Reviewed, dictated and finalized at location . Impression: Plantar calcaneal spur.
--- NOTE | ~2024-08-02 | XR_ITS ---
Left Hand Technique: PA and lateral views were obtained. Clinical History: Pain Findings: No acute fracture or dislocation is seen. Osseous alignment is anatomic. There is severe de generative change of the first CMC joint. There is severe degenerative change of the third DIP joint and fifth DIP joint.. Soft tissues are unremarkable. Impression: Severe degenerative change of the first CMC joint and the third and fifth DIP joints. Reviewed, dictated and finalized at location M. Impression: Severe degenerative change of the first CMC joint and the third and fifth DIP j oints.
--- NOTE | ~2024-08-02 | XR_ITS ---
Left Knee Technique: AP, lateral, and sunrise views were obtained. Clinical History: Pain Findings: No fracture or dislocation is seen. Osseous alignment is anatomic. There is spurring at the medial joint line. There is minimal patellar spurring. Soft tissues are unremarkable. No joint effus ion is seen. Impression: Mild degenerative spurring, as above. Reviewed, dictated and finalized at location . Impression: Mild degenerative spurring, as above.
--- NOTE | ~2024-08-02 | XR_ITS ---
Right Hand Technique: PA and lateral views were obtained. Clinical History: Pain Findings: No acute fracture or dislocation is seen. Osseous alignment is anatomic. There is mild to m oderate degenerative change of the first CMC joint. There is moderate to advanced degenerative change of the third, fourth, and fifth DIP joints. Soft tissues are unremarkable. Impression: Polyarticular osteophyte arthritis, as detailed above. Reviewed, dictated and finalized at location M. Impression: Polyarticular osteophyte arthritis, as detailed above.
--- NOTE | ~2024-08-02 | XR_ITS ---
Left wrist Technique: PA and lateral views were obtained. Clinical History: Pain Findings: No acute fracture or dislocation is seen. Osseous alignment is anatomic. There is moderate to advanced degenerative change of the first CMC joint. Soft tissues are unremarkable. Impression: Moderate to advanced degenerative change of the first CMC joint. Reviewed, dictated and finalized at location . Impression: Moderate to advanced degenerative change of the first CMC joint.
--- NOTE | ~2024-08-02 | XR_ITS ---
Right wrist Technique: PA and lateral views were obtained. Clinical History: Pain Findings: No acute fracture or dislocation is seen. Osseous alignment is anatomic. Joint spaces are p reserved. Soft tissues are unremarkable. Impression: Unremarkable right wrist radiographs. Reviewed, dictated and finalized at location M. Impression: Unremarkable right wrist radiographs.
--- NOTE | ~2024-08-02 | XR_ITS ---
Left foot Technique: AP and lateral views were obtained. Clinical History: Pain Findings: No acute fracture or dislocation is seen. Osseous alignment is anatomic. Joint spaces are p reserved without erosive or degenerative change. Plantar calcaneal spur noted. Soft tissues are unrem arkable. Impression: Plantar calcaneal spur. Reviewed, dictated and finalized at location . Impression: Plantar calcaneal spur.
--- OUTSIDE RECORDS SUMMARY | 2024-08-02 13:39 | XMS_ITS | Data Portability ---
Author Organization [place] [facility] [employer], Main Office Address [address] [place] [address] Care Team Providers Care Binder Cutter Hand Name Role Phone WILLAM RAO Primary Care Provider [phone] WILLAM RAO Referring Provider Assessment Encounter Date [...] She is finally going to be seeing bench assembler in July for evaluation. She wished to [...] 71-year-old female alert pleasant. She walks with Fijian crutches in both hands and has done [...] is the reason she benefits from the Fijian crutches. She would like cortisone shots in [...] more than half the time spent in sich-fj-[id number] care. Not available 01/05/2023 14:32:44 04/11/2023 04/11/2023 Patient returns. She requests cortisone shots in both knees min today. Her last injections were 3 months ago. She has meex-kp-chan medial compartment osteoarthritis the right knee moderately [...] still both knees she walks with 1 Fijian crutch. Is difficult to determined if she [...] more than half the time spent in vuef-yn-nyeg care. Not available 04/12/2023 17:16:41 Plan of Treatment Reminders Order Date Submit Date Provider Last Modified By Organization Details Last Modified Time Details Appointments None recorded. Lab None recorded. Referral None recorded. Procedures injection/a spiration joint/bursa (PROC) - in office procedure, administere d by provider 2023 024 [email or web address] In-Office Order, Internal Use Only DO Not Attach Compendium DO Not Attach Compendium, Do Not Delete/merge, [id number] 12:06:29 injection/a spiration joint/bursa (PROC) - in office procedure, administere d by provider 2022 023 [email or web address] In-Office Order, Internal Use Only DO Not Attach Compendium DO Not Attach Compendium, Do Not Delete/merge, [id number] 3 12:24:44 injection/a spiration joint/bursa (PROC) - in office procedure, administere d by provider 2022 023 [email or web address] In-Office Order, Internal Use Only DO Not Attach Compendium DO Not Attach Compendium, Do Not Delete/merge, [id number] 3 12:06:49 injection/a spiration joint/bursa (PROC) - in office procedure, administere d by provider 2022 023 [email or web address] In-Office Order, Internal Use Only DO Not Attach Compendium DO Not Attach Compendium, Do Not Delete/merge, [id number] 3 10:49:56 Surgeries None recorded. Imaging XR, knee 2022 023 [email or web address] [facility], [address], [place], [id number], 3 10:22:27 Medication Orders Kenalog 10 mg/mL suspension for injection 2023 024 [facility], [address], [place], [id number], 4 14:19:07 ropivacaine (PF) 5 mg/mL (0.5 %) injection solution 2023 024 [facility], [address] [facility], [place], [place], [id number], 4 14:19:07 Kenalog 10 mg/mL suspension for injection 2022 023 [facility], [address], [place], [id number], 3 16:28:15 ropivacaine (PF) 5 mg/mL (0.5 %) injection solution 2022 023 [facility], [address], [place], [id number], 3 16:28:15 Kenalog 10 mg/mL suspension for injection [address]25[facility], [address] [place], [address], 3 11:30:58 ropivacaine (PF) 5 mg/mL (0.5 %) injection solution [address]2510, [address] [place], [address], 3 11:30:58 Kenalog 10 mg/mL suspension for injection [address]2510, [address] [place], [address], 3 21:15:56 ropivacaine (PF) 5 mg/mL (0.5 %) injection solution [address] [address]25[facility], [address] [place], [address], 3 21:15:56 Patient TargetsNo targets recorded. Patient InstructionsNo instructions recorded. Reason for Referral None Reported. Results Created Date Observation Date Name Description Value Unit Range Abnormal Flag Note LastModifiedBy Organization Detail LastModifiedTime 01/04/20 23 XR, knee No observ ation record ed. [facility] [place] [address], [place], [id number], 01/05/2023 14:33:01 Result Notes None recorded. Problems Name Problem SNOMED Code Status Onset Date Resolution Date Notes Provider Name and Address Organization Details Recorded Time Bilateral osteoarthr itis of knees 5258494892905 07 Active 2021 Not Available [facility] 3 17:33:30 Headache 94983332 Active Not Available [facility] 3 17:33:30 Fever 723391423 Active Not Available [facility] 3 17:33:30 Osteoarthr itis 016523353 Active 2022 Not Available [facility] 3 17:33:30 Pain of bilateral knee joints 8420271264515 04 Active 2021 Not Available [facility] 3 17:33:30 Problem Notes None recorded. Procedures Surgical History Date Name Laterality Status Provider Name and Address Organization Details Recorded Time tonsillectomy completed Not Available [facility] 04/17/2022 17:31:32 extraction of cataract completed Not Available [facility] 04/17/2022 17:31:32 Imaging Results None recorded. Procedure Notes None recorded. Medical Equipment None Reported. Allergies Allergen ID Allergen Name Allergen Category Reaction Reaction Severity Criticality Documentation Date Start Date Code Code System Note Provider Name and Address Organization Details Recorded Time 27601 Iodinated contrast media (substanc e) medicatio n Not available Not available Not available 04/17/2022 56181 2004 SNOMED Not Available [facility] 3 17:35:49 Medications Name Sig Start Date [...] suspension for injection in office 2023 active [facility]: 0003- 0494- 20 Not Available Not Available [...] Available Not Available Nasonex 50 mcg/actuati on [place] 2 sprays every day by intranasa l [...] %) injection solution in office 2023 active [facility] 55658 -064- 01 Not Available Not Available Not [...] d Address Organization Details Last Updated DateTime 03/08/2022 171.45 cm Not Available [facility] 17:32:30 Date Recorded Body height Provider Name an d Address Organization Details Last Updated DateTime 04/11/2023 172.09 cm Ewelina Tommy [facility] [employer] [facility] [employer] [facility] 04/11/2023 11:59:29 Date Recorded Body height Provider Name an d Address Organization Details Last Updated DateTime 06/07/2022 171.45 cm Ewelinaelisa Sanders [facility] [employer] [facility] [employer] [facility] 06/07/2022 10:47:31 Date Recorded Body height Provider Name an d Address Organization Details Last Updated DateTime 09/06/2022 171.45 cm Ewelinaelisa Sanders [facility] [employer] [facility] [employer] [facility] 09/06/2022 12:04:51 Date Recorded Body weight Provider Name an d Address Organization Details Last Updated DateTime 01/03/2023 165784.49 g Ewelina Sanders [facility] [employer] [facility] [employer] [facility] 01/03/2023 12:36:39 Date Recorded Body height Body mass index (BMI) Provider Name and Address Organization Details Last Updated DateTime 01/03/2023 172.09 cm 42.3 kg/m2 Cara Funk [facility] [employer] [facility] [employer] [facility] 01/03/2023 13:46:05 Social History None recorded. Functional Status None recorded. Mental Status None recorded. Family History Relationship Description Onset Age of this Age Resolved Age Notes LastModified by Organization Details LastModified Time Unspecified Relation Heart disease [id number] Not available 04/17/2022 17:31:33 Mother Hypertensive disorder [email or web address] Not available 2022 12:22:41 Father Hypertensive disorder [email or web address] Not available 2022 12:22:41 Medical History Condition Response BLINDNESS N KIDNEY STONES N MRSA N CARPAL TUNNEL SYNDROME N LUNG DISEASE/DISORDER N HISTORY OF DRUG ABUSE N RADIATION / CHEMOTHERAPY N COPD N SPORTS INJURY N ANKLE PAIN N BLOOD DISEASES N SCHIZOPHRENIA N SHINGLES N SHOULDER PAIN N DEPRESSION (INCLUDING POST ) N BOWEL PROBLEMS N STROKE/TIA N ULCERS N KNEE PAIN N BENIGN PROSTATIC HYPERPLASIA N OBESITY N [...] HAVE YOU BEEN HOSPITALIZED OR SEEN IN [facility] ER IN THE PAST YEAR ? N BURSITIS [...] polio, unspecified formulation 6 completed Not Available [facility] 04/17/2022 17:35:40 Influenza, high-dose, trivalent, PF 4 completed Not Available [facility] 04/17/2022 17:35:41 Pneumococcal conjugate PCV 13 3 completed Not Available [facility] 04/17/2022 17:35:41 DT (pediatric) 1 completed Not Available [facility] 04/17/2022 17:35:41 Past Encounters Encounter ID Performer Location Encounter Start Date Encounter Closed Date Diagnosis/Indication Diagnosis SNOMED-CT Code Diagnosis ICD10 Code Diagnosis Note [id number] Vikas Rice MD [facility] [place] [address] [place] [address] 11/14/2021 00:00:00 11/14/2021 13:11:43 [id number] Vikas Rice MD [facility] [place] [address] [place] [address] 12/07/2021 00:00:00 12/07/2021 12:14:51 [id number] Vikas Rice MD [facility] [place] [address] [place] [address] 03/08/2022 00:00:00 03/17/2022 13:48:30 [id number] Vikas Rice MD [facility] [place] [address] [place] [address] 06/07/2022 10:42:44 06/07/2022 11:46:47 Bilateral osteoarthritis of knees 3686820171 51051 M17.0 [id number] Vikas Rice MD [facility] [place] [address] [place] [address] 09/06/2022 11:59:27 09/06/2022 12:33:54 Bilateral osteoarthritis of knees 3115845809 14043 M17.0 [id number] Vikas Rice MD [facility] [place] [address] [place] [address] 01/03/2023 11:54:44 01/07/2023 10:22:27 Bilateral osteoarthritis of knees [id number] 06001 M17.0 [id number] Vikas Rice MD [facility] [place] [address] [place] [address] 04/11/2023 11:54:49 04/14/2023 10:00:18 Bilateral osteoarthritis of knees 6251071798 43468 M17.0 Health Concerns Section Related Observation LastModified by Organization Detai ls LastModified Time None Recorded Concern Status LastModified by Organization Details LastModified Time None Recorded Advance Directives Directive None Recorded Payers Insurance Date Sequence Insurance Name Policy Number Policy Dang Covered Member ID Dang Member ID Guarantor Name 04/09/2023 1 [place] Windy Kan [id number] Windy Kan 04/21/2023 2 [place] [id number] Windy Kan [id number] Windy Kan Notes Date Note Type Note Provider [...] 17 with pericarditis. She was in the [facility] IMU that entire time. It is believed [...] is 271 she states. Vikas Rice MD [address] [place] [address], [place] [address], [place], [address], [facility] [employer] 01/05/2023 14:33:19 OBGyn Episode No OBEpisode recorded.
--- OUTSIDE RECORDS SUMMARY | 2024-08-02 13:39 | XMS_ITS | Clinical Summary ---
Author Organization [facility] Address [address] [place] [address] Care Team Providers Care Outreach Educator Name Role Phone David Parks MD Primary Care Provider [phone] Source Comments [facility],non-owned Affiliates and Associated Physician Practices is amultiple site organization consisting of ambulatory clinics and hospital sitesin [place], [place], [place] and [place]. This disclosure is being madepursuant to the Care Everywhere program and may not contain all information available regarding this patient. Last updated 17.[facility] Allergies Active Allergy Reactions Criticality Noted Date Comments Green Dye Swelling Low 06/29/2015 Contrast-Iodinated Agents For Ct/Other 06/29/2015 Medications * Be aware that medications may not be up to date on this document. Alwaysverify current medications with the patient. levothyroxine (SYNTHROID) 50 MCG tablet Take 50 [...] enema into the rectum at bedtime Active HYDROcodone-kyleigh taminophen (NORCO) 10-325 MG tablet Take 1 tablet [...] mg by mouth once daily Active Multiple Vitamins-Minera ls (CENTRUM VITAMINTS PO) Active butalbital-aspi rin-caffeine (Fiorinal) 50-325-40 MG capsule TAKE 1 CAPSULE BY MOUTH TWICE A DAY NEEDED FOR HEADACHE 2 Active Cholecalciferol (vitamin D3) 1.25 MG (07982 UT) capsule Take 1 (one) capsule by mouth 3 Active DULoxetine (Cymbalta) 20 MG capsule Take 1 (one) capsule by mouth 2 times daily 2 Active vitamin D, ergocalciferol, (Drisdol) 1.25 MG (77382 UT) capsule Take 1 (one) capsule by mouth every 7 days 3 Active fexofenadine (Cindy) 180 MG tablet Take 1 (one) tablet by mouth once daily 2 Active levothyroxine (Synthroid) 25 MCG tablet 2 Active metoprolol tartrate IR (Lopressor) 25 MG tablet TAKE ONE TABLET BY MOUTH EVERY NIGHT AT BEDTIME AND TAKE ONE-HALF TABLET EVERY MORNING 3 Active Paxlovid, 300/100, 3 Active predniSONE (Deltasone) 10 MG tablet TAKE 3 TABLETS BY MOUTH DAILY FOR 5 DAYS 3 Active triamterene-hyd roCHLOROthiazid e (Dyazide) 37.5-25 MG capsule TAKE 1 CAPSULE BY MOUTH DAILY NEEDED FOR SWELLING 2 Active Active Problems Problem Noted Date Diagnosed Date Prediabetes 04/02/2020 PMB (postmenopausal bleeding) 12/20/2013 Overview (01/04/2021): Overview: 11/28 - EMB - neg 01/07 - EMB - neg Endometrial polyp Overview (06/09/2018): Overview: 07/02: Hystx, D&C - Polyp: benign; Endometrial curettings: benign Immunizations Immunization Administration Dates Next Due Covid Moderna primary monova lent 12+ yr 0.5mL [...] at Not on file Legal Sex Female 7:52 AM CDT Gender Identity Not on file Sexual Orientation [...] 11:42 AM CDT Height 172.7 cm (5' 8) 10/01/2022 11:42 AM CDT Body Mass Index [...] 60-74 years 1-dose series) 2010 COVID-19 VACCINE (4 - 2023-2 5 season) 2023 12/14/2020, 04/18/2020, 03/16/2020 DEPRESSION SCREENING 02/18/2024 INFLUENZA VACCINE (Season Ended) 2024 09/30/2013 HEPATITIS B VACCINE Aged Out No longe r eligible based on patient's age to complete this topic HIB VACCINE Aged Out No longer eligi ble based on patient's age to complete this topic HPV VACCINE Aged Out No longer eligi ble based on patient's age to complete this topic MENINGOCOCCAL (Group B) VACCINE SHARED DECISION-MAKING Aged Out No longer eligible based on patient's age to complete this topic MENINGOCOCCAL GROUPS A/C/Y/W VACCINE Aged Out No longer eligible b ased on patient's age to complete this topic Insurance MEDICARE FOR[facility] ANTHEM SELF PAY NO INSURANCE Member Subscriber Plan / Payer (Ef fective for All Dates) Name:Windy Subramanian Member ID:Not on file Relation to Subscriber:Not on file Name:WINDY SUBRAMANIAN Subscriber ID:Not on file (Home) Address: [address] [place] [id number] Payer ID:Not on file Group ID:Not on file Type:Self Pay Address: [place], [place] MEDICARE Advance Directives Documents on File Type Date Recorded Patient Office Inspector Expl anation Adv Directive/Living Will/POA 07/12/2015 9:33 PM Care Teams Outreach Educator Relationship Specialty Start Date End Date David Parks MD [address] [place] [address] PCP - General 10/09/21
--- OUTSIDE RECORDS SUMMARY | 2024-08-02 13:39 | XMS_ITS | Clinical Summary ---
Author Organization [facility] Address [address] [place] [address] Phone Care Team Providers Care Environmental Service Aide Name Role Phone Nicolás Turner MD Primary Care Provider [phone] Allergies Active Allergy Reactions Criticality Noted Date [...] on file Legal Sex Female 2:44 PM MEDICAL SUPERVISOR Gender Identity Not on file Sexual Orientation Not on file Last Filed Vital Signs Vital Sign Reading Time Taken Comments Blood Pressure 120/74 05/17/2020 4:25 PM CDT Pulse 78 03/30/2020 10:22 AM MEDICAL SUPERVISOR Temperature - - Respiratory Rate - - Oxygen Saturation - - Inhaled Oxygen Concentration - - Weight 130.4 kg (287 lb 6.4 oz) 05/17/2020 4:25 PM CDT Height 175.3 cm (5' 9) 05/17/2020 4:25 PM CDT Body Mass Index 42.44 05/17/2020 4:25 PM CDT Plan of Treatment Health Maintenance Due Date Last Done Comments DTAP/TDAP/TD VACCINES (1 - Tdap) 1969 BREAST CANCER SCREENING 1990 COLORECTAL SCREENING 12/13/1995 Colorectal Cancer Screening 12/13/1995 FIT-DNA Q 3 years 12/13/1995 FIT/FOBT Q 1 year 12/13/1995 Flex Sig/CT Colonography Q 5 years 12/13/1995 PNEUMOCOCCAL VACCINE 50+ YEARS (1 of 1 - PCV) 12/13/19 ZOSTER VACCINE (1 of 2) 2000 OSTEOPOROSIS SCREENING 12/13/2015 INFLUENZA VACCINE (#1) 2023 RSV VACCINE (60+ or ) (1 - 1-dose 75+ series) 2025 Insurance MEDICARE PART A AND B [facility] BLUE PREFERRED Care Teams Environmental Service Aide Relationship Specialty Start Date End Date Nicolás Turner MD [address] [place] [address] PCP - General Internal Medicine 03/30/20
--- OUTSIDE RECORDS SUMMARY | 2024-08-02 13:39 | XMS_ITS ---
Author Name Auto Generated, Auto Generated Organization [facility] Address [address] [place] [address] Phone [phone] Care Team Providers Care Elastic Tape Inserter Name Role Phone DeniseSelina thomasn Unavailable [phone] Functional Status No Results Mental Status No Results Allergies and Intolerances Name Onset Date Reaction Severity Iodinated Contrast Media (Allergy) FriNov 15 19 :17:00 EDT 2022 ciprofloxacin (Allergy) FriNov 15 19:16:00 EDT 2022 Medications Medication Directions Start Date End Date ondansetron 4 mg disintegrating tablet 1 tab TABLET,DISINTEGRATING Oral 1 Time Daily Indication: nausea FriNov 18 19:00:00 EDT 2022Nov 20 01:00:00 EDT 2022 nystatin 100,000 unit/gram topical powder As directed POWDER (GRAM) Topical 2 Times Daily Indication: Apply powder in bilateral groin area until healed. FriNov 18 19:00:00 EDT 2022Nov 20 01:00:00 EDT 2022 Hemorrhoidal(phenyleph-min oil-petrolat)0.25 %-14 %-74.9 % rectal oint as directed OINTMENT WITH APPLICATOR Rectal PRN Every 6 Hours Indication: hemorrhoids FriNov 17 18:32:00 EDT 2022Nov 20 01:00:00 EDT 2022 metoprolol tartrate 50 mg tablet 1.5 TABLETS TABLET Oral Every 12 Hours Indication: HTN FriNov 15 19:45:00 EDT 2022Nov 20 01:00:00 EDT 2022 amiodarone 400 mg tablet 1 TABLET TABLET Oral 1 Time Daily Indication: antiarrhythmic FriNov 15 19:45:00 EDT 2022Nov 20 01:00:00 EDT 2022 Eliquis 5 mg tablet 1 TABLET TABLET Oral Every 12 Hours Indication: blood thinner FriNov 15 19:45:00 EDT 2022Nov 20 01:00:00 EDT 2022 levothyroxine 50 mcg tablet 1 TABLET TAB LET Oral 1 Time Daily Indication: thyroid Fri [facility] 19:45:00 EDT 2022Nov 20 01:00:00 ED2022 cholecalciferol (vitamin D3) 1,250 mcg (50,000 unit) capsule 1 CAPSULE CAPSULE Oral 1 Time Weekly Indication: supplement Fri [facility] 19:45:00 EDT 2022Nov 20 01:00:00 ED2022 One Daily 0.4 mg-600 mcg tablet 1 TABLET TABLET Oral 1 Time Daily Indication: supplement Fri [facility] 19:45:00 EDT 2022Nov 20 01:00:00 EDT 2022 esomeprazole magnesium 40 mg capsule,delayed release 1 CAPSULE CAPSULE,DELAYED RELEASE (ENTERIC COATED) Oral 1 Time Daily Indication: GERD Fri [facility] 19:45:00 T 2022Nov 20 01:00:00 ED2022 LORazepam 1 mg tablet 1 TABLET TABLET Or al PRN 2 Times Daily Indication: ANXIETY [facility] 19:45:00 2022 [facility] 23:28:00 EDT 2022 HYDROcodone 7.5 mg-acetaminophen 325 mg tablet 1.5 TABLETS TABLET Oral PRN Every 8 Hours Indication: PAIN *DO NOT EXCEED 3GM APAP/DAY FROM ALL SOURCES* Fri [facility] 19:45:00 T 2022Nov 20 01:00:00 2022 TubersoL 5 tub. unit/0.1 mL intradermal injection solution 0.1 ml VIAL (ML) Intradermal 1 Time Weekly for 2 Weeks Indication: tb test 1st injection on admission, then one week after. Read between 48 and 72 hours Fri [facility] 01:00:00 T 2022Nov 20 01:00:00 2022 TubersoL 5 tub. unit/0.1 mL intradermal injection solution Read Results VIAL (ML) Other 1 Time Weekly for 2 Weeks Indication: tb test Read results between 48-72 hours after 1st and 2nd (1 week apart). If positive do chest x-ray. FriNov 15 01:00:00 T 2022Nov 20 01:00:00 T 2022 colchicine (gout) 0.6 mg tablet 1 TABLET TABLET Oral 2 Times Daily for 22 Days Indication: gout Fri [facility] 19:00:00 T 2022Nov 20 01:00:00 EDT 2022 LORazepam 1 mg tablet 1 TABLET TABLET Or al PRN 2 Times Daily Indication: ANXIETY FriNov 15 23:00:00 EDT 2022Nov 20 01:00:00 EDT 2022 Problems Active Concerns * Gastro-esophageal reflux disease without esophagitis* Code: * Start Date: FriNov 15 00:00:00 EDT 2022 * End Date: * Text: * Anxiety disorder, unspecified* Code: * Start Date: FriNov 15 00:00:00 EDT 2022 * End Date: * Text: * Hypothyroidism, unspecified* Code: * Start Date: FriNov 15 00:00:00 EDT 2022 * End Date: * Text: * Disorder involving the immune mechanism, unspecified* Code: * Start Date: FriNov 15 00:00:00 EDT 2022 * End Date: * Text: * Irritable bowel syndrome, unspecified* Code: * Start Date: FriNov 15 00:00:00 EDT 2022 * End Date: * Text: * Osteoarthritis of knee, unspecified* Code: * Start Date: FriNov 15 00:00:00 EDT 2022 * End Date: * Text: * Rheumatoid arthritis without rheumatoid factor, unspecified site* Code: * Start Date: FriNov 15 00:00:00 EDT 2022 * End Date: * Text: * Acute cholecystitis* Code: * Start Date: FriNov 15 00:00:00 EDT 2022 * End Date: * Text: * Gout, unspecified* Code: * Start Date: FriNov 15 00:00:00 EDT 2022 * End Date: * Text: * supervisor 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 (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 of 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* Code: * Start Date: FriNov 15 00:00:00 EDT 2022 * End Date: * Text: * Unspecified atrial fibrillation* Code: * Start Date: FriNov 15 00:00:00 EDT 2022 * End Date: * Text: * Headache, unspecified* Code: * Start Date: FriNov 15 00:00:00 EDT 2022 * End Date: * Text: * Pleural effusion, not elsewhere classified* Code: * Start Date: FriNov 15 00:00:00 EDT 2022 * End Date: * Text: * Dysuria* Code: * Start Date: FriNov 15 00:00:00 EDT 2022 * End Date: * Text: * Nausea* Code: * Start Date: FriNov 15 00:00:00 EDT 2022 * End Date: * Text: * Other pericardial effusion (noninflammatory)* Code: * Start Date: FriNov 15 00:00:00 EDT 2022 * End Date: * Text: * Other ascites* Code: * Start Date: FriNov 15 00:00:00 EDT 2022 * End Date: * Text: * Other overlap syndromes* Code: * Start Date: FriNov 15 00:00:00 EDT 2022 * End Date: * Text: * Unspecified urinary incontinence* Code: * Start Date: FriNov 15 00:00:00 EDT 2022 * End Date: * Text: * Essential (primary) hypertension* Code: * Start Date: FriNov 15 00:00:00 EDT 2022 * End Date: * Text: Reason for Referral Past Medical History
--- OUTSIDE RECORDS SUMMARY | 2024-08-02 13:39 | XMS_ITS | Continuity of Care Document ---
Author Organization [facility] Address [address] [place] [address] Dr Mariano [address] [place] [phone] Phone Care Team Providers Care Bulk Folder Name Role Phone Vega OD, Neal Unavailable Unavailable Procedures Procedure Date Eye Exam & Treatment Refraction CL Replacement - Vistakon Disp W/BW Soft [facility] No Charge Contact Lens Check CL Replacement - Other Lens [facility] Eye Exam & Treatment Refraction CL Replacement - Vist[facility]on Disp W/BW Soft [facility] CL Replacement - Vistakon Other [address] [facility] CL Replacement - [place] Disp W/BW Soft [facility] Eye Exam & Treatment Refraction CL Replacement - [place]on Disp W/BW Soft [facility] CL Replacement - [place]on Disp W/BW Soft [facility] CL Replacement - [place] Disp W/BW Soft [facility] Corneal Topography Refraction Eye Exam & Treatment CL Replacement - Vist[place]on Disp W/BW Soft [facility] No Charge Contact Lens Check Advance Directives Directive Yes / No Effective Date File Name No Information Encounters Encounter Description Practice Location Reason(s) For Visit Diagnoses Date Provider Providers Copied on Encounter [facility], [address], [place], [place], [id number], [place] tel:[phone] [facility] No Information Oct-0 7-201 0 Vega OD Neal. [address], [place], [place], [facility], . tel:[phone] [facility], [address], [place], [place], [id number], [place] tel:[phone] [facility] No Information Aug-0 5-200 9 Vega OD Neal. [address], [place], [place], [facility], [place]. tel:[phone] [facility], [address], [place], [place], [id number], [place] tel:[phone] [facility] No Information Nik-0 9-200 9 Vega OD Neal. [address], [place], [facility], [place]. tel:[phone] [facility], [address], [place], [place], [id number], [place] tel:[phone] [facility] No Information Nik-0 7-200 9 Vega OD Neal. [address], [place], [facility], [place]. tel:[phone] [facility], [address], [place], [place], [id number], [place] tel:[phone] [facility] No Information Dinesh-2 5-200 9 Vega OD Neal. [address], [place], [facility], [place]. tel:[phone] [facility], [address], [place], [place], [id number], [place] tel:[phone] [facility] No Information May-0 1-200 9 Vega OD Neal. [address], [place], [facility], [place]. tel:[phone] [facility], [address] [place] [address] [address], [place], [place], [id number], tel:[phone] [facility] No Information Oct-3 1-200 8 Vega OD Neal. [address], [place], [facility], [place]. tel:[phone] [facility], [address] [place] [address] [address], [place], [place], [id number], tel:[phone] [facility] No Information Nik-0 3-200 8 Vega OD Neal. [address], [place], [facility], [place]. tel:[phone] [facility], [address] [place] [address] [address], [place], [place], [id number], [place] tel:[phone] [facility] No Information Dinesh-1 9-200 8 Vega OD Neal. [address], [place], [facility], [place]. tel:[phone] [facility], [address] [place] [address] [address], [place], [place], [id number], [place] tel:[phone] [facility] No Information Apr-2 2-200 8 Vega OD Neal. [address], [place], [address], [place]. tel:[phone] [facility], [address] [place] [address] [address], [place], [place], [id number], [place] tel:[phone] [facility] No Information Oct-0 2-200 7 Vega OD Neal. [address], [place], [address], [place]. tel:[phone] [facility], [address], [place], [place], [address], [place] tel:[phone] [facility] No Information Nik-2 7-200 7 Vega OD Neal. [address], [place], [facility], [place]. tel:[phone] [facility], [address] [place] [address] [address], [place], [place], [id number], [place] tel:[phone] [facility] No Information Dinesh-2 6-200 7 [facility] . [facility] [place], [place], [id number], . tel:[phone] Referring Provider: Neal Vega OD A, [address], [place], [facility]. tel:[phone] [facility], [address] [place] [address] [address], [place], [place], [id number], [place] tel:[phone] [facility] No Information Dinesh-1 2-200 7 Vega OD Neal. [address], [place], [facility], [place]. tel:[phone] [facility], [address] [place] [address] [address], [place], [place], [id number], [place] tel:[phone] [facility] No Information Mar-0 6-200 7 Vega OD Neal. [address], [place], [address], [place]. tel:[phone] [facility], [address] [place] [address] [address], [place], [place], [id number], [place] tel:[phone] [facility] No Information Feb-2 0-200 7 Vega OD Neal. [address], [place], [address], [place]. tel:[phone] Family History Family Member Type Diagnosis Age At Onset No Information Payers Payer name Insurance type Covered republican ID Victorino wang(s) [employer] Benefit Plan [id number] Social History Type Description Quantity Date Captured [...]
--- OUTSIDE RECORDS SUMMARY | 2024-08-02 13:39 | XMS_ITS | Referral Summary ---
Author Organization [facility] [address] [facility] [address] Address [address] [place] [address] Care Team Providers Care Exhibits Curator Name Role Phone David Parks MD Primary Care Provider [phone] Encounters Date Type Department Care Team Description 05/19/2024 Telephone [facility] [address] [facility] [address] [place] [address] Neena Turner MD from Last 3 Months Allergies Active Allergy [...] mg total) by mouth daily 4 Active lubiprostone (AMITIZA) 24 mcg capsule Take by mouth 5 Active omeprazole (PriLOSEC) 40 mg capsule Take 1 capsule (40 mg total) by mouth daily 4 Active TURMERIC ORAL Take 2,000 Int'l Units by mouth Active metoprolol tartrate (LOPRESSOR) 25 mg immediate release tablet Take 0.5 tablets (12.5 mg total) by mouth every 8 (eight) hours Every 8 hours 135 tablet 2 5 Active Active Problems Problem Noted Date Diagnosed Date Medication side effects 06/10/2023 History of pericarditis 01/07/2023 Paroxysmal atrial flutter 01/07/2023 Chronic anticoagulation 01/07/2023 At risk for amiodarone toxicity with detention u se 01/07/2023 Morbid obesity with body mas s index (BMI) of 40.0 to 44.9 in adult 01/07/2023 Acquired hypothyroidism 01/07/2023 Acute viral pericarditis 11/27/2022 Diastolic congestive heart failure 11/27/2022 Atrial fibrillation with RVR 11/27/2022 Social History Tobacco Use Types Packs/Day Years Used Date Smoking Tobacco: Never Smokeless Tobacco: Never Tobacco Cessation:Counseling Given: Not Answered Comments Unknown Sex and Gender Information Value Date Recorded Sex Assigned at Not on file Legal Sex Female 4:13 AM CHARACTER ARTIST Gender Identity Not on file Sexual Orientation Not on file Last Filed Vital Signs Vital Sign Reading Time Taken Comments Blood Pressure 112/68 03/04/2024 2:41 PM CHARACTER ARTIST Pulse 93 03/04/2024 2:41 PM CHARACTER ARTIST Temperature - - Respiratory Rate - - Oxygen Saturation 97% 03/04/2024 2:41 PM CHARACTER ARTIST Inhaled Oxygen Concentration - - Weight 135.2 kg (298 lb) 03/04/2024 2:41 PM CHARACTER ARTIST Height 172.7 cm (5' 8) 03/04/2024 2:41 PM CHARACTER ARTIST Body Mass Index 45.31 03/04/2024 2:41 PM CHARACTER ARTIST Plan of Treatment Not on file Insurance MEDICARE [facility] MEDICARE [facility] Care Teams Exhibits Curator Relationship Specialty Start Date End Date David Parks MD PCP - General Family Medicine 11/08/22
--- OUTSIDE RECORDS SUMMARY | 2024-08-02 13:39 | XMS_ITS ---
Author Name Auto Generated, Auto Generated Organization [facility] Address [address] [place] [address] Phone [phone] Care Team Providers Care Teacher Associate Name Role Phone DeniseSelina thomasn Unavailable [phone] Functional Status No Results Mental Status No [...] Oral 1 Time Daily Indication: thyroid Fri [facility] 19:45:00 EDT 2022Nov 20 01:00:00 ED2022 cholecalciferol (vitamin D3) 1,250 mcg (50,000 unit) capsule 1 CAPSULE CAPSULE Oral 1 Time Weekly Indication: supplement Fri [facility] 19:45:00 EDT 2022Nov 20 01:00:00 ED2022 One Daily 0.4 mg-600 mcg tablet 1 TABLET TABLET Oral 1 Time Daily Indication: supplement Fri [facility] 19:45:00 EDT 2022Nov 20 01:00:00 EDT 2022 esomeprazole magnesium 40 mg capsule,delayed release 1 CAPSULE CAPSULE,DELAYED RELEASE (ENTERIC COATED) Oral 1 Time Daily Indication: GERD Fri [facility] 19:45:00 T 2022Nov 20 01:00:00 ED2022 LORazepam 1 mg tablet 1 TABLET TABLET Or al PRN 2 Times Daily Indication: ANXIETY [facility] 19:45:00 2022 [facility] 23:28:00 EDT 2022 HYDROcodone 7.5 mg-acetaminophen 325 mg tablet 1.5 TABLETS TABLET Oral PRN Every 8 Hours Indication: PAIN *DO NOT EXCEED 3GM APAP/DAY FROM ALL SOURCES* Fri [facility] 19:45:00 T 2022Nov 20 01:00:00 2022 TubersoL 5 tub. unit/0.1 mL intradermal injection solution 0.1 ml VIAL (ML) Intradermal 1 Time Weekly for 2 Weeks Indication: tb test 1st injection on admission, then one week after. 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
--- OUTSIDE RECORDS SUMMARY | 2024-08-02 13:39 | XMS_ITS | Clinical Summary ---
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 01/07/2023 Morbid obesity with body mas s index (BMI) of 40.0 to 44.9 in adult 01/07/2023 Acquired hypothyroidism 01/07/2023 Acute viral pericarditis 11/27/2022 Diastolic congestive heart failure 11/27/2022 Atrial fibrillation with RVR 11/27/2022 Encounters Date Type Department Care Team Description 05/19/2024 Telephone [facility] Card[facility] [address] [facility] [address] [place] [address] Neena Turner MD from Last 3 Months Medical History Medical History Date Comments Thyroid disease Arrhythmia Atrial flutter (HCC) Chest pain CHF (congestive heart failure) (HCC) Family History Medical History Relation Name [...] on file Legal Sex Female 4:13 AM DISPUTE COORDINATOR Gender Identity Not on file Sexual Orientation Not on file Obstetrics History Last Filed Vital Signs Vital Sign Reading Time Taken Comments Blood Pressure 112/68 03/04/2024 2:41 PM DISPUTE COORDINATOR Pulse 93 03/04/2024 2:41 PM DISPUTE COORDINATOR Temperature - - Respiratory Rate - - Oxygen Saturation 97% 03/04/2024 2:41 PM DISPUTE COORDINATOR Inhaled Oxygen Concentration - - Weight 135.2 kg (298 lb) 03/04/2024 2:41 PM DISPUTE COORDINATOR Height 172.7 cm (5' 8) 03/04/2024 2:41 PM DISPUTE COORDINATOR Body Mass Index 45.31 03/04/2024 2:41 PM DISPUTE COORDINATOR Plan of Treatment Health Maintenance Due Date [...] 12/14/2020, 04/18/2020, Additional history exists Influenza Vaccine (Season Ended) 2024 02/02/20, 09/30/2013 Insurance MEDICARE [facility] MEDICARE [facility] Care Teams Cylinder Grinder Relationship Specialty Start Date End Date David Parks MD PCP - General Family Medicine 11/08/22
--- OUTSIDE RECORDS SUMMARY | 2024-08-02 13:39 | XMS_ITS | CONTINUITY OF CARE DOCUMENT ---
Author Name namrata ratnaadriano Address Unknown Organization [facility] Address [address] [place] [address] [address] [place] [address] Phone [phone] Care Team Providers Care Dethistler Operator Name Role Phone Frances TRAVIS, Darin Bashir Unavailable [phone] MAIRA TRAVIS, WILLAM F Unavailable [phone] MAIRA TRAVIS, WILLAM F Unavailable [phone] [employer] Payer name Policy type / Coverage type [employer] red libertarian ID [place] MEDICARE PART B Medicare
== END 2024-08-02 12:49 | disposition home or self-care (01) ==
PROVIDERS: PCP Family Medicine; Visit Provider Internal Medicine
DX: M18.12 Unilateral primary osteoarthritis of first carpometacarpal joint, left hand (principal); M25.50 Pain in unspecified joint; R53.81 Other malaise; M79.10 Myalgia, unspecified site; M16.12 Unilateral primary osteoarthritis, left hip; M79.641 Pain in right hand; M77.32 Calcaneal spur, left foot; M77.31 Calcaneal spur, right foot; M17.0 Bilateral primary osteoarthritis of knee
CPT/HCPCS: 73100; 73120; 73521; 73562; 73600; 73620

== ENCOUNTER 2025-01-31 12:36 | Outpatient (CLI) | payer MEDICARE, SELFPAY ==
--- NOTE | ~2025-01-31 | XR_ITS ---
EXAMINATION: XR shoulder RT min 2V, XR shoulder LT min 2V DATE: 01/31/2025 13:00 INDICATION: Bilateral shoulder pain TECHNIQUE: 1. AP internally and externally rotated, AP oblique externally rotated and axillary views of the right shoulder were obtained. 2. AP internally and externally rotated, AP oblique externally rotated and axillary views of the left shoulder were obtained. COMPARISON: None FINDINGS: Right shoulder: Normal alignment. 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 There is small globular region of amorphous calcific density projecting over the superior facet of the greater tuberosity consistent with supraspinatus calcific tendinitis. Soft tissues are unremarka ble. Visualized portions of the right lung are clear. Left shoulder: Normal alignment. No fracture. Mild left glenohumeral and acromioclavicular osteoarthritis. Soft tissues are unremarkable. Visualized portions of the left lung are clear. IMPRESSION: Reviewed, dictated and finalized at location A. THERAPIST IMPRESSION: IMPRESSION:
== END 2025-01-31 12:37 | disposition home or self-care (01) ==
PROVIDERS: PCP Family Medicine; Visit Provider Internal Medicine
DX: M19.012 Primary osteoarthritis, left shoulder (principal); M19.011 Primary osteoarthritis, right shoulder; R53.81 Other malaise
CPT/HCPCS: 73030